=== PATIENT | male | born 1960 | race Caucasian/White ===

== ENCOUNTER 2016-07-17 02:12 | Emergency (ER) | payer OTHER ==
[~2016-07-17] VITALS: Wt 129.0 kg
[~2016-07-17 02:12] MED LIST: ACET500C5 PO; ALBU8.5H3 INH; AMIT25TA9 PO; ATEN50TA PO; ATOR20TA38 PO; BISA-57 PO; CLOP75TA27 PO; GABA300C16 PO; GLIM1TAB PO; IBUP-1542 PO; LANT3I SC; LISI20TA11 PO; METF-388 PO; NAPR-685 PO; OMEP20CA16 PO; POLY17PO6 PO; PRED20TA PO; SITA100T8 PO; SODI15OR8 PO; TRAM-40 PO; ULT50 PO; ZOLP10TA5 PO
[2016-07-17] MEDS ORDERED: traMADol 50 MG TAB PO ONE (04:00)
[2016-07-17] MEDS ORDERED: ULT50 PO (05:14)
--- NOTE | 2016-07-17 05:22 | ERD ---
ER Documentation Chief Complaint Date/Time DATE: 07/17/16 TIME: 05:15 Chief Complaint left leg pain HPI This is a 56-year-old male who is well-known to the emergency department here. The patient comes in always complaining of some leg pain. Patient does admit that he is very lonely and bored as family does not care much about him. Her social service worker team have investigated the situation several times with Adult Protective Services. The patient comes in complaining of the same typical complaint that his left lower mack hurts but there is no evidence of injury or infection. He says the pain is off and on for the past 2 days and is always the same pain he usually has. ROS All systems reviewed and are negative except as per history of present illness. Medications Home Meds Active Scripts Tramadol HCl (Tramadol HCl) 50 Mg Tablet, 50 MG PO Q6, #20 TAB Prov:YAIR TEJEDA DO 07/17/16 Acetaminophen* (Tylophen*) 500 Mg Capsule, 1 CAP PO Q6H Y for PAIN AND OR ELEVATED TEMP, #20 CAP Prov:NAIF BLAIR PA-C 07/01/16 Albuterol Sulfate* (Proair HFA*) 8.5 Gm Hfa.aer.ad, 2 PUFF INH Q4, #1 INHALER Prov:PARKER WEI PA-C 06/21/16 Ibuprofen* (Motrin*) 600 Mg Tab, 600 MG PO Q6H Y for PAIN AND OR ELEVATED TEMP, #15 TAB Prov:ABE MOORE MD 06/16/16 Sodium Polystyrene Sulfonate* (Kayexalate*) 15 Gm/60 Ml Susp, 30 GM PO ONCE, #2 ML Prov:YEMI HERNÁNDEZ DO 06/10/16 Sitagliptin* (Januvia*) 100 Mg Tab, 100 MG PO DAILY for 30 Days Prov:LISSY GONZALEZ 02/04/15 Reported Medications Insulin Glargine* (Lantus*) 100 Unit/Ml Soln, 20 UNIT SC DAILY, #1 VIAL 06/10/16 Tramadol Hcl* (Ultram*) 50 Mg Tablet, 50 MG PO TID Y for PAIN, TAB 03/30/16 Gabapentin* (Gabapentin*) 300 Mg Capsule, 300 MG PO TID, #90 CAP 03/16/16 Amitriptyline Hcl* (Amitriptyline Hcl*) 25 Mg Tablet, 25 MG PO QHS, #30 TAB 03/16/16 Omeprazole* (Omeprazole*) 20 Mg Capsule.dr, 20 MG PO DAILY, #30 CAP 12/22/15 Clopidogrel Bisulfate (Clopidogrel) 75 Mg Tablet, 75 MG PO DAILY, #30 TAB 12/22/15 Zolpidem Tartrate* (Zolpidem Tartrate*) 10 Mg Tablet, 10 MG PO QHS Y for INSOMNIA, #30 TAB 12/22/15 Glimepiride* (Amaryl*) 1 Mg Tablet, 1 MG PO WITH BREAKFAST, TAB 03/19/15 Metformin Hcl* (Metformin Hcl*) 1,000 Mg Tablet, 1000 MG PO BID WITH MEALS, TAB 03/19/15 Atorvastatin Calcium* (Atorvastatin Calcium*) 20 Mg Tablet, 20 MG PO HS, TAB 03/19/15 Lisinopril* (Lisinopril*) 20 Mg Tablet, 20 MG PO DAILY, TAB 09/29/14 Atenolol* (Atenolol*) 50 Mg Tablet, 50 MG PO DAILY, TAB 09/29/14 Discontinued Scripts Tramadol HCl (Tramadol HCl) 50 Mg Tablet, 50 MG PO Q4 Y for PAIN, #20 TAB Prov:PARKER WEI PA-C 06/21/16 Prednisone* (Prednisone*) 20 Mg Tab, 60 MG PO DAILY for 4 Days, TAB Prov:RAHEEM KENDALL MD 06/20/16 Albuterol Sulfate* (Proair HFA*) 8.5 Gm Hfa.aer.ad, 2 PUFF INH Q4H Y for WHEEZING AND SOB, #1 INHALER Prov:RAHEEM KENDALL MD 06/20/16 Tramadol HCl (Tramadol HCl) 50 Mg Tablet, 50 MG PO Q8H Y for PAIN, #120 TAB Prov:YAIR TEJEDA DO 06/18/16 Bisacodyl* (Dulcolax*) 5 Mg Tablet.dr, 10 MG PO DAILY Y for CONSTIPATION, #10 TAB Prov:YAIR TEJEDA DO 06/13/16 Albuterol Sulfate* (Proair HFA*) 8.5 Gm Hfa.aer.ad, 2 PUFF INH Q4, #1 INHALER Prov:YAIR TEJEDA DO 06/13/16 Prednisone* (Prednisone*) 20 Mg Tab, 60 MG PO DAILY for 5 Days, TAB Prov:YAIR TEJEDA DO 06/13/16 Albuterol Sulfate* (Proair HFA*) 8.5 Gm Hfa.aer.ad, 2 PUFF INH Q6H Y for WHEEZING AND SOB, #1 INHALER Prov:LLOYD AYALA 06/11/16 Prednisone* (Prednisone*) 20 Mg Tab, 60 MG PO DAILY for 5 Days, TAB Prov:LLOYD AYALA 06/11/16 Naproxen* (Naproxen*) 375 Mg Tablet, 375 MG PO BID Y for PAIN, #20 TAB Prov:YEMI HERNÁNDEZ DO 06/10/16 Polyethylene Glycol* (Miralax*) 17 Gm Powd.pack, 17 GM PO DAILY, #7 PACKET Prov:YEMI HERNÁNDEZ DO 06/10/16 Allergies Allergies: Coded Allergies: No Known Allergy (Unverified , 07/17/16) PMhx/Soc History of Surgery: No Anesthesia Reaction: No Hx Neurological Disorder: Yes (cva) Hx Respiratory Disorders: Yes (asthma) Hx Cardiac Disorders: Yes (htn) Hx Psychiatric Problems: No Hx Miscellaneous Medical Probl: No Hx Alcohol Use: Yes (occasionally) Hx Substance Use: No Hx Tobacco Use: Yes Smoking Status: Current every day smoker FmHx Family History: No coronary disease Physical Exam Vitals Vital Signs Date Time Temp Pulse Resp B/P Pulse Ox O2 Delivery O2 Flow Rate FiO2 07/17/16 02:22 97.3 80 18 116/58 91 Physical Exam Const: Well-developed, well-nourished Head: Atraumatic, normocephalic Eyes: Normal Conjunctiva, PERRLA, EOMI, normal sclera, no nystagmus ENT: Normal External Ears, Nose and Mouth, moist mucus membranes. Neck: Full range of motion. No meningismus, no lymphadenopathy. Resp: Clear to auscultation bilaterally, no wheezing, rhonchi, rales Cardio: Regular rate and rhythm, no murmurs, S1 S2 present Abd: Soft, non tender x 4, non distended. Normal bowel sounds, no guarding or rebound, no pulsitile abdominal masses or bruits Skin: No petechiae or rashes, no ecchymosis , no maculopapular rash Back: No midline or flank tenderness Ext: No cyanosis, or edema, FROM x 4, normal inspection, neurovascularly intact x 4, subjective tenderness to the left mid tib-fib no signs of infection or trauma swelling or bruising Neur: Awake and alert, STR 5/5 x 4, sensation intact x 4, no focal findings, cerebellum intact Psych: Normal Mood and Affect Results 24 hrs Laboratory Tests Test 07/17/16 03:21 Bedside Glucose 182mg/dL Current Medications Medications (Trade) Dose Ordered Sig/Stephanie Route PRN Reason Start Time Stop Time Status Last Admin Dose Admin Tramadol HCl (Ultram) 50 mg ONCE ONCE PO 07/17/16 04:00 07/17/16 04:01 DC 07/17/16 03:54 Procedures/MDM Patient was given a snack and some tramadol for pain he has been sleeping in the ER. Departure Diagnosis: Primary Impression: Pain of left leg Condition: Stable Patient Instructions: Chronic Pain Referrals: DOCTOR,NOT ON STAFF (PCP) YAIR TEJEDA DO Jul 17, 2016 05:22
[2016-07-17 05:47] VITALS: BP 122/68; PULSE 83; RESP 18; TEMP 97.2
== END 2016-07-17 05:49 | disposition home or self-care (01) ==
LOC: E/R 02:12
DX: M79.605 Pain in left leg (principal); J45.909 Unspecified asthma, uncomplicated; I10 Essential (primary) hypertension; F17.210 Nicotine dependence, cigarettes, uncomplicated; Z79.84 Long term (current) use of oral hypoglycemic drugs; Z79.4 Long term (current) use of insulin
CPT/HCPCS: 82962; Z7502; Z7610; 99283

== ENCOUNTER 2016-07-26 12:45 | Inpatient (IN) | payer OTHER ==
[~2016-07-26] VITALS: Ht 172.7 cm; Wt 127.7 kg
[~2016-07-26 12:45] MED LIST changes: -BISA-57 PO; -NAPR-685 PO; -POLY17PO6 PO; -PRED20TA PO
--- NOTE | 2016-07-26 12:56 | ERA ---
ER Documentation Chief Complaint Date/Time DATE: 07/26/16 TIME: 12:55 Chief Complaint The patient is 56-year-old male, presenting to the ER because of acute respiratory distress. He was at the clinic for shortness of breath. When the EMS arrived, he was in agonal breathing with ashen color. He was put on assisted ventilation and transported to the ER immediately. Upon arrival to the ER, he was in acute respiratory distress, unable to answer any question. 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 Past medical history: Diabetes mellitus, history of CVA with mild left hemiparesis, COPD, dyslipidemia, GERD, glaucoma, chronic back pain Past surgical history: Inguinal herniorrhaphy ROS All systems reviewed and are negative except as per history of present illness. Medications Home Meds Active Scripts Tramadol HCl (Tramadol HCl) 50 Mg Tablet, 50 MG PO Q6, #20 TAB Prov:YAIR TEJEDA DO 07/17/16 Acetaminophen* (Tylophen*) 500 Mg Capsule, 1 CAP PO Q6H Y for PAIN AND OR ELEVATED TEMP, #20 CAP Prov:NAIF BLAIR PA-C 07/01/16 Albuterol Sulfate* (Proair HFA*) 8.5 Gm Hfa.aer.ad, 2 PUFF INH Q4, #1 INHALER Prov:PARKER WEI PA-C 06/21/16 Ibuprofen* (Motrin*) 600 Mg Tab, 600 MG PO Q6H Y for PAIN AND OR ELEVATED TEMP, #15 TAB Prov:ABE MOORE MD 06/16/16 Sodium Polystyrene Sulfonate* (Kayexalate*) 15 Gm/60 Ml Susp, 30 GM PO ONCE, #2 ML Prov:YEMI HERNÁNDEZ DO 06/10/16 Sitagliptin* (Januvia*) 100 Mg Tab, 100 MG PO DAILY for 30 Days Prov:LISSY GONZALEZ 02/04/15 Reported Medications Insulin Glargine* (Lantus*) 100 Unit/Ml Soln, 20 UNIT SC DAILY, #1 VIAL 06/10/16 Tramadol Hcl* (Ultram*) 50 Mg Tablet, 50 MG PO TID Y for PAIN, TAB 03/30/16 Gabapentin* (Gabapentin*) 300 Mg Capsule, 300 MG PO TID, #90 CAP 03/16/16 Amitriptyline Hcl* (Amitriptyline Hcl*) 25 Mg Tablet, 25 MG PO QHS, #30 TAB 03/16/16 Omeprazole* (Omeprazole*) 20 Mg Capsule.dr, 20 MG PO DAILY, #30 CAP 12/22/15 Clopidogrel Bisulfate (Clopidogrel) 75 Mg Tablet, 75 MG PO DAILY, #30 TAB 12/22/15 Zolpidem Tartrate* (Zolpidem Tartrate*) 10 Mg Tablet, 10 MG PO QHS Y for INSOMNIA, #30 TAB 12/22/15 Glimepiride* (Amaryl*) 1 Mg Tablet, 1 MG PO WITH BREAKFAST, TAB 03/19/15 Metformin Hcl* (Metformin Hcl*) 1,000 Mg Tablet, 1000 MG PO BID WITH MEALS, TAB 03/19/15 Atorvastatin Calcium* (Atorvastatin Calcium*) 20 Mg Tablet, 20 MG PO HS, TAB 03/19/15 Lisinopril* (Lisinopril*) 20 Mg Tablet, 20 MG PO DAILY, TAB 09/29/14 Atenolol* (Atenolol*) 50 Mg Tablet, 50 MG PO DAILY, TAB 09/29/14 Allergies Allergies: Coded Allergies: No Known Allergy (Unverified , 07/17/16) PMhx/Soc History of Surgery: No Anesthesia Reaction: No Hx Neurological Disorder: Yes (cva) Hx Respiratory Disorders: Yes (asthma) Hx Cardiac Disorders: Yes (htn) Hx Psychiatric Problems: No Hx Miscellaneous Medical Probl: No Hx Alcohol Use: Yes (occasionally) Hx Substance Use: No Hx Tobacco Use: Yes Physical Exam Vitals Vital Signs Date Time Temp Pulse Resp B/P Pulse Ox O2 Delivery O2 Flow Rate FiO2 07/26/16 14:06 65 18 72/50 100 Mechanical Ventilator 07/26/16 13:49 97.9 69 30 134/79 89 07/26/16 13:45 65 20 101/57 100 07/26/16 13:15 97.9 73 28 157/93 92 Room Air Physical Exam Const: Acute severe respiratory distress. Head: Atraumatic. Eyes: Normal Conjunctiva. ENT: Normal External Ears, Nose and Mouth. Neck: Full range of motion. No meningismus. Resp: Scattered rhonchi, tachypneic Cardio: Regular rate and rhythm, Abd: Soft, non distended, normal bowel sounds, non tender. Skin: No petechiae or rashes. Back: No midline or flank tenderness. Ext: No cyanosis, or edema. Neur: Unable to perform due to his condition Psych: Unable to perform due to his condition Result Diagram: 07/26/16 1300 07/26/16 1300 Results 24 hrs Laboratory Tests Test 07/26/16 12:56 07/26/16 13:00 07/26/16 13:30 Bedside Glucose 198mg/dL Activated Partial Thromboplast Time 31.4Sec Alanine Aminotransferase (ALT/SGPT) 28IU/L Albumin 4.6g/dl Albumin/Globulin Ratio 1.31 Alkaline Phosphatase 84IU/L Anion Gap 22 Aspartate Amino Transf (AST/SGOT) 32IU/L Basophils # 0.110^3/ul Basophils % 0.5% Blood Morphology Comment Blood Urea Nitrogen 21mg/dl Calcium Level 8.8mg/dl Carbon Dioxide Level 29mmol/L Chloride Level 97mmol/L Creatinine 0.83mg/dl Direct Bilirubin 0.00mg/dl Eosinophils # 0.210^3/ul Eosinophils % 1.2% Globulin 3.50g/dl Glucose Level 185mg/dl Hematocrit 41.7% Hemoglobin 14.1g/dl INR International Normalized Ratio 0.90 Indirect Bilirubin 0.4mg/dl Lactic Acid Level 6.0mmol/L Lymphocytes # 5.810^3/ul Lymphocytes % 36.2% Mean Corpuscular Hemoglobin 29.2pg Mean Corpuscular Hemoglobin Concent 33.8g/dl Mean Corpuscular Volume 86.5fl Mean Platelet Volume 8.7fl Monocytes # 1.610^3/ul Monocytes % 10.1% Neutrophils # 8.310^3/ul Neutrophils % 52.0% Nucleated Red Blood Cells # 0.010^3/ul Nucleated Red Blood Cells % 0.0/100WBC Platelet Count 90062^3/UL Potassium Level 5.1mmol/L Prothrombin Time 12.1Sec Prothrombin Time Ratio 0.9 Red Blood Count 4.8210^6/ul Red Cell Distribution Width 16.3% Sodium Level 143mmol/L Total Bilirubin 0.4mg/dl Total Protein 8.1g/dl Troponin I 0.011ng/ml White Blood Count 15.910^3/ul Arterial Blood HCO3 23.9mmol/L Arterial Blood Base Excess -5.4mmol/L Arterial Blood Oxygen Saturation 98.9mmHG Trell Test ACCEPTAB Arterial Blood Gas Puncture Site Right Radial Arterial Blood Carboxyhemoglobin 5.9% Arterial Blood Date Drawn 07/26/2016 1:21:38 PM Arterial Blood Methemoglobin 0.2% Arterial Blood pCO2 (Temp correct) 64.9mmhg Arterial Blood pH (Temp corrected) 7.184 Arterial Blood pO2 (Temp corrected) 507.0mmHG Blood Gas A-a O2 Differential 141.1mmHg Blood Gas Actual Respiration Rate 20 Blood Gas Critical Value Read Back DR MOORE Blood Gas Low PEEP Setting 5.0cmH2O Blood Gas Modality VENT - AC Blood Gas Notified Time 07/26/2016 1:35:30 PM Blood Gas Notified Whom JLD Blood Gas Respiration Rate 20.0 Blood Gas Specimen Source Blood arterial Blood Gas Temperature 37.0C Blood Gas Tidal Volume 500.0mL FiO2 100.0% Oxyhemoglobin Percent 92.9% Total Hemoglobin 13.1g/dl Current Medications Medications (Trade) Dose Ordered Sig/Stephanie Route PRN Reason Start Time Stop Time Status Last Admin Dose Admin Propofol 100 ml @ ud STK-MED ONCE .ROUTE 07/26/16 13:35 07/26/16 13:36 DC Propofol 100 ml @ 0 mls/hr TITRATE ONCE IV 07/26/16 14:00 07/26/16 14:01 DC 07/26/16 13:49 Piperacillin Sod/ Tazobactam Sod (Zosyn 3.375gm/ 100 ml (Pmx)) 100 ml @ 200 mls/hr ONCE ONCE IVPB 07/26/16 14:30 07/26/16 14:59 07/26/16 14:25 Vancomycin HCl 1 ea 1 ea X 1 ONLY IN E.R. STAT XX 07/26/16 14:02 07/26/16 14:04 DC Vancomycin HCl/ Sodium Chloride (Vancocin/NS) 500 ml @ 125 mls/hr ONCE ONCE IVPB 07/26/16 15:00 07/26/16 18:59 Vecuronium [place] 10 mg 10 mg ONCE ONCE IV 07/26/16 14:30 07/26/16 14:31 DC Sodium Chloride (NS) 500 ml @ 500 mls/hr Q1H ONCE IV 07/26/16 14:30 07/26/16 15:29 Methylprednisolone Sodium Succinate 125 mg 125 mg ONCE ONCE IV 07/26/16 14:30 07/26/16 14:31 DC Sodium Chloride 1,000 ml @ 1,000 mls/hr Q1H ONCE IV 07/26/16 15:00 07/26/16 15:59 Sodium Chloride (NS) 3,570 ml @ 3,570 mls/hr BOLUS X1 ONCE IV 07/26/16 15:00 07/26/16 15:59 Procedures/MDM EKG: Read by emergency physician Rate/Rhythm: Normal Sinus Rhythm 99 beats per min QRS, ST, T-waves: No ST elevation, no T wave inversion, right bundle branch block Impression: Abnormal EKG [place] [id number] Radiology Main Line: [phone] DIAGNOSTIC IMAGING REPORT Patient: DIANN FLOWERS : 1960 Age: 56 Sex: M MR #: [id number] DOS: 07/26/16 1256 Ordering MD: ABE MOORE MD Location: E/R Room/Bed: PROCEDURE: XR Chest. CLINICAL INDICATION: Status post intubation TECHNIQUE: Single portable view of the chest was obtained COMPARISON: 06/26/16 FINDINGS: There is a new endotracheal tube 5.5 cm above the shon. There is mild cardiomegaly. There is no focal infiltrate. There is no pleural effusion or pneumothorax. RPTAT: AA IMPRESSION: New endotracheal tube in appropriate position. .Colin Escalera MD, MD Date Time Electronically viewed and signed by .Colin Escalera MD, MD on 07/26/2016 13: 33 .S/ CC: ABE MOORE MD MEDICAL MAKING DECISION: The patient is a 56-year-old male, presenting with acute septic shock, acute hypercapnic hypoxemic respiratory failure, acute COPD exacerbation. He was intubated immediately. Accu-Chek was 198. He was treated with a nasogastric tube, Scherer catheter, propofol drip, soft restraints , Zosyn IV, vancomycin IV, 500 mL normal saline 2 and vecuronium 10 mg IV. The differential diagnoses considered include but are not limited to asthma, COPD, pneumonia, pulmonary embolus, pleural effusion, congestive heart failure. Admit MDM: Patient's infectious symptoms have not stabilized and the patient is at risk of rapid decompensation. The patient will be admitted for careful hydration, antibiotic therapy, and infectious source control. Severe Sepsis criteria: Infectious source: Unknown End organ damage indicated by: Lactate > 2.0 mmol/L Hypotension (SBP < 90 or >40 mmHG drop or MAP < 65) Sepsis Management: Time of recognition of severe sepsis/septic shock:Upon arrival Within 3 hours of recognition: Blood cultures x 2 before broad-spectrum antibiotics: Yes 30 ml/kg NS bolus completed Initial lactate 6 Repeat lactate pending Critical Care: Critical care time 35 minutes excluding billable procedure Emergent fluid management while maintaining close respiratory support. Provision of immediate and broad-spectrum antibiotic therapy. Simultaneous assessment for possible sources in order to direct targeted therapy. Consideration for invasive and chemical support to prevent cardiopulmonary collapse. Septic Shock Assessment: Any lactic acid > 4.0 yes Persistent hypotension (SBP < 90 or 40 mmHg drop, MAP < 65) despite 30 mL/kg IV fluid bolusno Volume Re-assessment for Septic Shock (post 30 ml/kg bolus): Per nursing note Heart regular rate & rhythm Lungs no crackles Skin Warm & dry & pink Cap Refill less than 2 seconds Peripheral pulses radially present Persistent Hypotension Treatment: Comfort care no Central line not indicated Vasopressor started not indicated I considered further perfusion assessment with CVP measurement, SCVO2, bedside ultrasound volume assessment, passive leg raise, trial of further fluid bolus. And proceeded withIV fluid Endotracheal Intubation by me: Pre assessment performed. See preceding note for details. Pre-oxygenation performed with 100% oxygen RSI: Performed w/o complication or hypoxic events. Medications as ordered. Blade: [place] scope ET Tube: 7.5 cm Depth: 23 cm at the lip Intubation confirmed by colorimetric CO2, equal breath sounds, quiet over the stomach. Departure Diagnosis: Primary Impression: Acute respiratory failure with hypoxia and hypercapnia Additional Impressions: Acute exacerbation of chronic obstructive pulmonary disease (COPD) Septic shock Condition: Critical Comments I discussed the findings with the patient. I discussed the patient with his physician Dr. Bernstein who was made aware of the lab, the treatment, the patient condition. The patient is admitted to ICU 2:40 pm ABE MOORE MD Jul 26, 2016 12:56
[2016-07-26 13:29] LABS: BASOPHIL # 0.1 10^3/ul (0.0-0.1); BASOPHILS % 0.5 % (0.0-2.0); EOSINOPHILS # 0.2 10^3/ul (0.0-0.5); EOSINOPHILS % 1.2 % (0.0-7.0); HEMATOCRIT 41.7 % (42.0-52.0); HEMOGLOBIN 14.1 g/dl (14.0-18.0); LYMPHOCYTES # 5.8 10^3/ul (0.8-2.9); LYMPHOCYTES % 36.2 % (15.0-51.0); MEAN CORPUSCULAR HEMOGLOBIN 29.2 pg (29.0-33.0); MEAN CORPUSCULAR HGB CONC 33.8 g/dl (32.0-37.0); MEAN CORPUSCULAR VOLUME 86.5 fl (82.0-101.0); MEAN PLATELET VOLUME 8.7 fl (7.4-10.4); MONOCYTE # 1.6 10^3/ul (0.3-0.9); MONOCYTES % 10.1 % (0.0-11.0); NEUTROPHIL # 8.3 10^3/ul (1.6-7.5); PLATELET COUNT 317 10^3/UL (140-440); RED BLOOD COUNT 4.82 10^6/ul (4.70-6.10); RED CELL DISTRIBUTION WIDTH 16.3 % (11.5-14.5); UNCORRECTED WBC 15.9 10^3/ul (4.8-10.8); WHITE BLOOD COUNT 15.9 10^3/ul (4.8-10.8)
[2016-07-26 13:30] LABS: CONDITION 1; LH ANALYZER COMMENTS 1
--- NOTE | 2016-07-26 13:33 | RADRPT ---
PROCEDURE: XR Chest. CLINICAL INDICATION: Status post intubation TECHNIQUE: Single portable view of the chest was obtained COMPARISON: 06/26/16 FINDINGS: There is a new endotracheal tube 5.5 cm above the shon. There is mild cardiomegaly. There is no focal infiltrate. There is no pleural effusion or pneumoth orax. RPTAT: AA IMPRESSION: New endotracheal tube in appropriate position. .Colin Escalera MD, MD Date Time Electronically viewed and signed by .Colin Escalera MD, MD on 07/26/2016 13:33 .S/
[2016-07-26 13:35] LABS: AADO2 Arterial 141.1 mmHg (7.0-24.0); Allen Test ACCEPTAB; Arterial Base Excess -5.4 mmol/L (-3.0-3); Arterial COHb 5.9 % (0.0-3.0); Arterial Fraction of Oxyhgb 92.9 % (93.0-99.0); Arterial HCO3 23.9 mmol/L (22.0-26.0); Arterial MetHb 0.2 % (0.0-1.5); Arterial Total Hemglobin 13.1 g/dl (12.0-18.0); MODE VENT - AC
[2016-07-26] MEDS ORDERED: PROPOFOL 100 ML ONE (13:35)
[2016-07-26 13:37] LABS: ALBUMIN 4.6 g/dl (3.3-4.9)
[2016-07-26 13:38] LABS: INR 0.9; POTASSIUM 5.1 mmol/L (3.5-5.1); PROTIME 12.1 Sec (12.2-14.2); PT RATIO 0.9
[2016-07-26 13:39] LABS: PARTIAL THROMBOPLASTIN TIME 31.4 Sec (25.0-35.0)
[2016-07-26 13:40] LABS: BILIRUBIN,INDIRECT 0.4 mg/dl (0-1.1); BILIRUBIN,TOTAL 0.4 mg/dl (0.2-1.3); CREATININE 0.83 mg/dl (0.61-1.24)
[2016-07-26 13:41] LABS: ALBUMIN/GLOBULIN RATIO 1.31; CALCIUM 8.8 mg/dl (8.4-10.2); TOTAL PROTEIN 8.1 g/dl (6.1-8.1)
[2016-07-26 13:53] LABS: TROPONIN-I 0.011 ng/ml (0.00-0.12)
[2016-07-26] MEDS ORDERED: PROPOFOL 100 ML IV ONE (14:00)
[2016-07-26] MEDS ORDERED: VANCOMYCIN IV PER PHARMACY XX STA (14:02)
[2016-07-26] MEDS ORDERED: SOD CHLORIDE 0.9% 500 ML IV ONE (14:30)
[2016-07-26] MEDS ORDERED: METHYLPREDNISOLONE 125 MG INJ IV ONE (14:30)
[2016-07-26] MEDS ORDERED: VECURONIUM 10 MG VIAL IV ONE ×2 (14:30→18:30)
[2016-07-26] MEDS ORDERED: PIPER-TAZO 3.375 GM IV (PMX) 100 ML IVPB ONE (14:30)
[2016-07-26 14:53] LABS: AADO2 Arterial 142.2 mmHg (7.0-24.0); Allen Test ACCEPTAB; Arterial COHb 3.4 % (0.0-3.0); Arterial Fraction of Oxyhgb 94.7 % (93.0-99.0); Arterial HCO3 28.3 mmol/L (22.0-26.0); Arterial MetHb 0.1 % (0.0-1.5); Arterial Total Hemglobin 11.9 g/dl (12.0-18.0); MODE VENT - AC
[2016-07-26] MEDS ORDERED: SOD CHLORIDE 0.9% IV ONE (15:00)
[2016-07-26] MEDS ORDERED: SOD CHLORIDE 0.9% 1,000 ML IV ONE (15:00)
[2016-07-26] MEDS ORDERED: VANCOMYCIN 2 GM in SOD CHLORIDE 0.9% 500 ML IVPB ONE (15:00)
[2016-07-26 15:11] LABS: ADD UMIC YES; URINE BILIRUBIN (Dip) NEGATIVE (NEGATIVE); URINE BLOOD (Dip) TRACE (NEGATIVE); URINE COLOR LT. YELLOW (YELLOW); URINE GLUCOSE (Dip) NEGATIVE (NEGATIVE); URINE KETONES (Dip) NEGATIVE (NEGATIVE); URINE LEUKOCYTE ESTERASE (Dip) NEGATIVE (NEGATIVE); URINE NITRITE (Dip) NEGATIVE (NEGATIVE); URINE TOTAL PROTEIN (Dip) 2+ (NEGATIVE); URINE UROBILINOGEN (Dip) 0.2 E.U./dL (0.1-1.0)
[2016-07-26] MEDS ORDERED: LEVALBUTEROL (NEB) 1.25 MG/0.5 ML AMP HHN ONE (15:30)
[2016-07-26] MEDS ORDERED: IPRATROPIUM (NEB) 0.5 MG/2.5 ML AMP HHN ONE (15:30)
[2016-07-26] MEDS ORDERED: LEVALBUTEROL (NEB) 1.25 MG/0.5 ML AMP ONE (15:32)
[2016-07-26] MEDS ORDERED: IPRATROPIUM (NEB) 0.5 MG/2.5 ML AMP ONE (15:32)
--- NOTE | 2016-07-26 15:51 | RADRPT ---
PROCEDURE: US DVT. CLINICAL INDICATION: Bilateral lower extremity pain and swelling. TECHNIQUE: Multiple longitudinal and transverse images of the bilateral lower extremity veins were obtained with martinez scale and color Doppler imaging. 2D grayscale measurements with compression, co phuong Doppler flow, and augmentation was performed. The calf veins were interrogated as well. COMPARISON: 05/27/2015. FINDINGS: The bilateral common femoral, superficial femoral and popliteal veins are normally compressible thro ughout. Color flow demonstrates normal filling of the vessel. Normal waveforms are visualized and there is normal response to augmentation. The calf veins are visualized and are equally unremarkabl e. IMPRESSION: 1. No evidence of a deep vein thrombosis involving either lower extremity. RPTAT: AA .Darrick Jack MD, Date Time Electronically viewed and signed by .Darrick Jack MD, MD on 07/26/2016 15:51 .N/
[2016-07-26] MEDS ORDERED: GLUCOSE GEL 15 GRAM TUBE BUCCAL PRN (16:00)
[2016-07-26] MEDS ORDERED: GLUCAGON 1 MG INJ IM PRN (16:00)
[2016-07-26] MEDS ORDERED: DEXTROSE 50% 50 ML SYRINGE IV PRN ×2 (16:00)
[2016-07-26] MEDS ORDERED: NITROGLYCERIN (SL) 0.4 MG TAB SL PRN (16:00)
[2016-07-26] MEDS ORDERED: ACETAMINOPHEN 650 MG SUPP PR PRN (16:00)
[2016-07-26] MEDS ORDERED: MAGNESIUM HYDROXIDE 30ML CUP PO PRN (16:00)
[2016-07-26] MEDS ORDERED: GLUCOSE GEL 15 GRAM TUBE PO PRN ×2 (16:00)
[2016-07-26] MEDS ORDERED: BISACODYL 10 MG SUPP PR PRN (16:00)
[2016-07-26] MEDS ORDERED: ACETAMINOPHEN 650MG/20.3ML CUP PO PRN (16:00)
[2016-07-26] MEDS ORDERED: ONDANSETRON 4 MG INJ IV PRN (16:00)
[2016-07-26] MEDS ORDERED: DOCUSATE SODIUM 100 MG CAP PO PRN (16:00)
[2016-07-26] MEDS ORDERED: IPRATROPIUM (HFA) 12.9 GM INHALER INH PRN (16:00)
[2016-07-26] MEDS ORDERED: ALBUTEROL HFA 8 GM INHALER INH PRN (16:00)
[2016-07-26 16:02] LABS: BACTERIA,URINE RARE; SQUAMOUS EPITHELIAL CELL,UR RARE
[2016-07-26] MEDS: INSULIN ASPART [NOVOLOG] 3 ML PEN SC SCH (17:00)
[2016-07-26] MEDS: PROPOFOL 100 ML IV SCH (17:12)
--- NOTE | 2016-07-26 17:31 | HP ---
DATE OF ADMISSION: 07/26/2016 CHIEF COMPLAINT ON ADMISSION: Severe respiratory distress, shortness of breath. HISTORY OF PRESENT ILLNESS: This is a 56-year-old male with a past medical history significant for hypertension, hyperlipidemia, diabetes mellitus, COPD, coronary artery disease and chronic left lowe r extremity pain related to radiculopathy who presented to the emergency department today from his [facility] physician's office with severe respiratory distress. The patient apparently went to his primary care office this morning due to shortness of breath, and while he was being evaluated and b efore he left there, he was found to be in severe respiratory distress and actually had an episode o f syncope. He was transferred to the emergency department. In the emergency department, he was sev erely hypoxemic and agitated with O2 sats in the 70s. His ABG did show some CO2 retention, pH of 7. 1. Therefore, the patient was intubated emergently. By the time I saw him, he has been already int ubated and on sedation. There is no family member around to provide any history. All this history is obtained from the ER physician, Dr. Solis. The patient is currently stable after intubation. His repeat ABG is much better. He seems to be primarily retainer of CO2. His vital signs are stable. He is on sedation. His laboratory data are fairly stable except for a white blood cell count of 15 ,000. There is some concern for aspiration based on the discussion with the ER physician. Therefor e, the patient has been given a dose of Zosyn and also vancomycin. He did receive steroids, nebuliz er treatment and now on mechanical ventilation. He is being admitted to the intensive care unit. ALLERGIES: NO KNOWN ALLERGIES. PAST MEDICAL HISTORY: 1. Coronary artery disease, status post stenting and old myocardial infarction. 2. COPD with chronic hypoxemia. 3. Diabetes mellitus. 4. Diabetic neuropathy. 5. Hyperlipidemia. 6. Glaucoma. 7. Hypertension. 8. Chronic cerebellar infarcts bilaterally. 9. 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 10. Chronic left lower extremity pain secondary to radiculopathy and peripheral neuropathy. 11. Likely obstructive sleep apnea. 12. Morbid obesity. PAST SURGICAL HISTORY: 1. Status post angiogram in the past. 2. Status post hernia repair. Of note, this surgical history is based on previous records. FAMILY HISTORY: Unknown. SOCIAL HISTORY: The patient apparently lives alone based on previous history. There is a son, han wren, listed. It is unclear if he is smoking or is a former smoker. No reported alcohol use. This is per record again. REVIEW OF SYSTEMS: Unable to obtain from patient currently. OUTPATIENT MEDICATIONS: 1. ProAir HFA 2 puffs inhaled q.4 hours. 2. Plavix 75 mg p.o. daily. 3. Atenolol 50 mg p.o. daily. 4. Atorvastatin 20 mg p.o. daily. 5. Lisinopril 20 mg p.o. at bedtime. 6. Tylenol 500 one tablet p.o. q.6 hours p.r.n. pain. 7. Amitriptyline 25 mg p.o. at bedtime. 8. Gabapentin 300 mg p.o. t.i.d. 9. Motrin 600 mg p.o. q.6 hours p.r.n. 10. Tramadol 50 mg p.o. q.6 hours versus q.8 hours as needed. 11. Ambien 10 mg p.o. at bedtime. 12. Kayexalate 30 grams p.o. once. 13. Glimepiride 1 tablet p.o. daily. 14. Lantus 20 units subcutaneously daily. 15. Metformin 1000 mg p.o. b.i.d. 16. Januvia 100 mg p.o. daily. PHYSICAL EXAMINATION: VITAL SIGNS: Temperature is 97.9; heart rate of 65, sinus rhythm; respiratory rate 18; blood pressu re 157/93. The patient is 100% mechanical ventilation with FIO2 of 50%, respiratory rate 26, AC mod e, tidal volume 500, PEEP of 5. GENERAL: He is sedated, intubated. Currently he is comfortable. Vital signs are stable. HEENT: Pupils are equally round and reactive to light. Extraocular muscles are intact. Anicteric sclerae. NECK: No JVD, no thyromegaly noted. However, the patient does have a thick neck and likely obstruc tive sleep apnea. HEART: Regular rate and rhythm. No murmur, rubs or gallops. LUNGS: Clear to auscultation bilaterally actually with good air movement while on the vent. ABDOMEN: Obese. Bowel sounds are present. Soft. EXTREMITIES: No edema, clubbing or cyanosis. NEUROLOGIC: The patient is currently sedated and intubated. LABORATORY DATA: White blood cell count is 15.9, hemoglobin of 14.1, hematocrit 41.7, platelet coun t of 317. Chemistry with a sodium of 143, potassium 5.1, chloride 97, bicarbonate 29, BUN 21, creat inine 0.83, glucose of 185, lactic acid 6.0, calcium 8.8, total bilirubin 0.4, AST 32, ALT 28, alkal ine phosphatase of 84. Troponin 0.011. Total protein 8.1. INR 0.90, PT 12.1, PTT 31.4. Urinalysi s is negative. Latest ABG post intubation with a pH of 7.3 now, up from 7.18; pCO2 of 57, down from 64.9; pO2 of 149. This is on FIO2 of 50%. EKG shows normal sinus rhythm. No acute ST or T-wave abnormalities. RADIOLOGICAL DATA: 1. Chest x-ray did show ET tube in place. No focal infiltrate. No pleural effusion, no pneumothor ax. The patient is noted to have mild cardiomegaly. 2. Dopplers of the lower extremities show no signs of DVT. ASSESSMENT AND PLAN: This is a 56-year-old male with: 1. Acute respiratory failure, seems to be hypercapnic and also hypoxemic with known chronic obstruc tive pulmonary disease, possible obstructive sleep apnea and possibly underlying bronchitis. It is unclear as the patient was actually going to his PCP for shortness of breath. He will be maintained on Zosyn for possible aspiration pneumonia. Monitor laboratory data. Dr. Palomares from Pulmonary as been consulted for vent management. The patient will be treated for COPD exacerbation. He alrea dy received Solu-Medrol 125 mg IV x1 in the ER. Will continue at 60 mg IV q.6 along with MDI treatm ent with albuterol and ipratropium while the patient is on the vent. Dopplers of the lower extremit ies are negative. If needed, will have a CT angiogram also done. Further recommendation per Belen dunne. 2. Coronary artery disease, status post stent placement in the past. Continue outpatient regimen i ncluding Plavix. He will be ruled out for acute coronary syndrome. He already had an echocardiogra m, latest one done in 02/2016. We will review, will only repeat it if needed. For now, there is no indication unless additional findings as the patient is being ruled out. 3. Diabetes mellitus. Sliding scale insulin has been ordered along with his Lantus. Will continue also Januvia, which would be substituted to Tradjenta here. Check hemoglobin A1c in a.m. and adjus t insulin regimen as needed. 4. Old cerebrovascular accident. Continue current treatment and then will monitor his mental statu s once he is more awake and extubated. 5. Hypertension. Continue outpatient medications. 6. Diabetic neuropathy. Continue outpatient medications. 7. Major depressive disorder and anxiety disorder. The patient is currently sedated. Will re-eval uate once extubated. 8. Possible aspiration pneumonia. I agree with Greteln. Will monitor the patient, recheck chest x-r ay in a.m. 9. Morbid obesity, possible obstructive sleep apnea. Will discuss with Pulmonary if the patient wi ll need CPAP after he is extubated. 10. Prophylaxis. Protonix for gastrointestinal prophylaxis, Lovenox for deep vein thrombosis proph ylaxis. DISPOSITION: The patient is admitted to the intensive care unit intubated, requiring mechanical martin tilation. Dictated By: MANUEL CABRERA/DARRELL Conf#: [id number] DID#: [id number]
[2016-07-26] MEDS: ALBUTEROL HFA 8 GM INHALER INH SCH ×2 (18:25→22:27)
[2016-07-26] MEDS: IPRATROPIUM (HFA) 12.9 GM INHALER INH SCH ×2 (18:25→22:27)
[2016-07-26] MEDS: METHYLPREDNISOLONE 125 MG INJ IV SCH (19:31)
[2016-07-26] MEDS: D5W IV SCH (20:01)
[2016-07-26] MEDS: MIDAZOLAM IV SCH (20:01)
[2016-07-26 20:26] LABS: TROPONIN-I 0.012 ng/ml (0.00-0.12)
[2016-07-26 20:28] LABS: CK-MB 0.28 ng/ml (0.0-2.4)
[2016-07-26 20:42] LABS: AADO2 Arterial 141.7 mmHg (7.0-24.0); Allen Test ACCEPTAB; Arterial Base Excess 0.1 mmol/L (-3.0-3); Arterial COHb 0.9 % (0.0-3.0); Arterial Fraction of Oxyhgb 94.2 % (93.0-99.0); Arterial HCO3 26.6 mmol/L (22.0-26.0); Arterial MetHb 0.2 % (0.0-1.5); Arterial Total Hemglobin 12.7 g/dl (12.0-18.0); Blood Gas Mean Airway Pressure 17; MODE VENT - AC
[2016-07-26] MEDS: ATORVASTATIN 20 MG TAB PO SCH (21:00)
[2016-07-26] MEDS: AMITRIPTYLINE 25 MG TAB PO SCH (21:00)
[2016-07-26] MEDS: PIPER-TAZO 3.375 GM IV (PMX) 100 ML IVPB SCH (21:51)
[2016-07-26] MEDS: SOD CHLORIDE 0.9% 1,000 ML IV SCH (21:53)
[2016-07-27 02:03] LABS: TROPONIN-I 0.011 ng/ml (0.00-0.12)
[2016-07-27 02:07] LABS: CK-MB 0.65 ng/ml (0.0-2.4)
[2016-07-27] MEDS: IPRATROPIUM (HFA) 12.9 GM INHALER INH SCH ×4 (02:18→20:54)
[2016-07-27] MEDS: ALBUTEROL HFA 8 GM INHALER INH SCH ×4 (02:18→20:54)
[2016-07-27] MEDS ORDERED: VANCOMYCIN 1.5 GM in SOD CHLORIDE 0.9% 250 ML IVPB SCH (04:00)
[2016-07-27 06:22] LABS: BASOPHILS % 0.2 % (0.0-2.0); HEMOGLOBIN 10.3 g/dl (14.0-18.0); LYMPHOCYTES # 0.8 10^3/ul (0.8-2.9); LYMPHOCYTES % 9.7 % (15.0-51.0); MEAN CORPUSCULAR HEMOGLOBIN 29.2 pg (29.0-33.0); MEAN CORPUSCULAR HGB CONC 34.3 g/dl (32.0-37.0); MEAN PLATELET VOLUME 9.1 fl (7.4-10.4); MONOCYTE # 0.2 10^3/ul (0.3-0.9); MONOCYTES % 2.3 % (0.0-11.0); NEUTROPHIL # 7.6 10^3/ul (1.6-7.5); NEUTROPHILS % 87.8 % (39.0-77.0); PLATELET COUNT 213 10^3/UL (140-440); RED BLOOD COUNT 3.53 10^6/ul (4.70-6.10); UNCORRECTED WBC 8.6 10^3/ul (4.8-10.8); WHITE BLOOD COUNT 8.6 10^3/ul (4.8-10.8)
[2016-07-27 06:28] LABS: CONDITION 1; LH ANALYZER COMMENTS 1
[2016-07-27 06:30] VITALS: TEMP 99.6
[2016-07-27 06:37] LABS: MAGNESIUM 1.7 mg/dl (1.7-2.5); PHOSPHORUS 2.6 mg/dl (2.5-4.9)
[2016-07-27 06:51] LABS: ALBUMIN 3.2 g/dl (3.3-4.9)
[2016-07-27 06:52] LABS: POTASSIUM 4.8 mmol/L (3.5-5.1)
[2016-07-27 06:54] LABS: BILIRUBIN,INDIRECT 0.1 mg/dl (0-1.1); BILIRUBIN,TOTAL 0.1 mg/dl (0.2-1.3); CREATININE 0.79 mg/dl (0.61-1.24)
[2016-07-27 06:55] LABS: ALBUMIN/GLOBULIN RATIO 1.06; CALCIUM 7.9 mg/dl (8.4-10.2); TOTAL PROTEIN 6.2 g/dl (6.1-8.1)
[2016-07-27] MEDS ORDERED: SUCCINYLCHOLINE CHLORIDE 100 MG/5 ML SYG IV ONE (07:00)
[2016-07-27 07:08] LABS: THYROID STIMULATING HORMONE 0.867 MIU/L (0.465-4.680)
[2016-07-27] MEDS: GABAPENTIN 300 MG CAP PO SCH (09:00)
[2016-07-27] MEDS: LINAGLIPTIN 5 MG TABLET PO SCH (09:00)
[2016-07-27] MEDS: LISINOPRIL 20 MG TAB PO SCH (09:00)
[2016-07-27] MEDS: CLOPIDOGREL 75 MG TAB PO SCH (09:00)
[2016-07-27] MEDS: ARTIFICIAL TEARS 15 ML OPH BOTH EYES SCH (09:00)
[2016-07-27] MEDS: ATENOLOL 50 MG TAB PO SCH (09:00)
--- NOTE | 2016-07-27 11:29 | PN ---
Date/Time of Note Date/Time of Note DATE: 07/27/16 TIME: 11:28 Assessment/Plan VTE Prophylaxis VTE Prophylaxis Intervention: LMWH Lines/Catheters Urinary Cath still in place: Yes Reason Cath still needed: other (indicate) (monitor UOP) Assessment/Plan Assessment/Plan 56-year-old male with: 1. Acute respiratory failure, on admission hypercapnic and hypoxemic with known chronic obstructive pulmonary disease, possible obstructive sleep apnea and possibly underlying bronchitis. On IV abx Vent support and Dr Palomares to see Continue MDIs and steroids Dopplers of the lower extremities are negative. Follow up further recommendation from Pulmonary. 2. Coronary artery disease, status post stent placement in the past. Continue outpatient regimen including Plavix. CE negative 2D echocardiogram, latest one done in 02/2016. 3. Diabetes mellitus. A1c 6.4 Continue Sliding scale insulin with his Lantus. Continue Tradjenta. 4. Old cerebrovascular accident. Continue current treatment and then will monitor his mental status once he is more awake and extubated. 5. Hypertension. Continue outpatient medications. 6. Diabetic neuropathy. Continue outpatient medications. 7. Major depressive disorder and anxiety disorder. The patient is currently sedated. Will re-evaluate once extubated. 8. Possible aspiration pneumonia. I agree with Zosyn. CXR stable 9. Morbid obesity, possible obstructive sleep apnea. Will discuss with Pulmonary if the patient will need CPAP after he is extubated. Prophylaxis. Protonix for gastrointestinal prophylaxis, Lovenox for deep vein thrombosis prophylaxis. DISPOSITION: continue intensive care unit care, patient intubated, requiring mechanical ventilation for now, Pulmonary to see Subjective 24 Hr Interval Summary Free Text/Dictation Patient intubated and remains stable on vent Pulmonary to see for further care On abx for ? aspiration Exam/Review of Systems Vital Signs Vitals Vital Signs Date Time Temp Pulse Resp B/P Pulse Ox O2 Delivery O2 Flow Rate FiO2 07/27/16 11:15 76 20 103/51 97 Mechanical Ventilator 07/27/16 07:15 40 07/27/16 06:30 99.6 Exam Constitutional: obese, other (intubated and on vent ) Respiratory: diminished breath sounds (bases bilaterally ), other (good air movement on Vent ) Cardiovascular: nl pulses, regular rate and rhythm Gastrointestinal: non-tender, soft Musculoskeletal: nl extremities to inspection Extremities: normal pulses, other (no edema, clubbing ot cyanosis ) Neurological: other (intubated and sedated ) Results Result Diagram: 07/27/16 0525 07/27/16 0525 Results 24 hrs Laboratory Tests Test 07/26/16 12:56 07/26/16 13:00 07/26/16 13:30 07/26/16 14:21 Bedside Glucose 198 Activated Partial Thromboplast Time 31.4 Alanine Aminotransferase (ALT/SGPT) 28 Albumin 4.6 Albumin/Globulin Ratio 1.31 Alkaline Phosphatase 84 Anion Gap 22 H Aspartate Amino Transf (AST/SGOT) 32 Basophils # 0.1 Basophils % 0.5 Blood Morphology Comment Blood Urea Nitrogen 21 H Calcium Level 8.8 Carbon Dioxide Level 29 Chloride Level 97 Creatinine 0.83 Direct Bilirubin 0.00 Eosinophils # 0.2 Eosinophils % 1.2 Globulin 3.50 H Glucose Level 185 Hematocrit 41.7 L Hemoglobin 14.1 INR International Normalized Ratio 0.90 Indirect Bilirubin 0.4 Lactic Acid Level 6.0 *H Lymphocytes # 5.8 H Lymphocytes % 36.2 Mean Corpuscular Hemoglobin 29.2 Mean Corpuscular Hemoglobin Concent 33.8 Mean Corpuscular Volume 86.5 Mean Platelet Volume 8.7 Monocytes # 1.6 H Monocytes % 10.1 Neutrophils # 8.3 H Neutrophils % 52.0 Nucleated Red Blood Cells # 0.0 Nucleated Red Blood Cells % 0.0 Platelet Count 317 # Potassium Level 5.1 Prothrombin Time 12.1 L Prothrombin Time Ratio 0.9 Red Blood Count 4.82 Red Cell Distribution Width 16.3 H Sodium Level 143 Total Bilirubin 0.4 Total Protein 8.1 Troponin I 0.011 White Blood Count 15.9 #H Arterial Blood HCO3 23.9 Arterial Blood Base Excess -5.4 L Arterial Blood Oxygen Saturation 98.9 H Trell Test ACCEPTAB Arterial Blood Gas Puncture Site Right Radial Arterial Blood Carboxyhemoglobin 5.9 H Arterial Blood Date Drawn 07/26/2016 1:21:38 PM Arterial Blood Methemoglobin 0.2 Arterial Blood pCO2 (Temp correct) 64.9 H Arterial Blood pH (Temp corrected) 7.184 *L Arterial Blood pO2 (Temp corrected) 507.0 H Blood Gas A-a O2 Differential 141.1 H Blood Gas Actual Respiration Rate 20 Blood Gas Critical Value Read Back DR MOORE Blood Gas Low PEEP Setting 5.0 Blood Gas Modality VENT - AC Blood Gas Notified Time 07/26/2016 1:35:30 PM Blood Gas Notified Whom JLD Blood Gas Respiration Rate 20.0 Blood Gas Specimen Source Blood arterial Blood Gas Temperature 37.0 Blood Gas Tidal Volume 500.0 FiO2 100.0 Oxyhemoglobin Percent 92.9 L Total Hemoglobin 13.1 Urine Bacteria RARE Urine Bilirubin NEGATIVE Urine Clarity CLEAR Urine Color LT. YELLOW Urine Glucose NEGATIVE Urine Hemoglobin TRACE Urine Ketones NEGATIVE Urine Leukocyte Esterase NEGATIVE Urine Microscopic RBC 2-5 Urine Microscopic WBC 0-2 Urine Nitrite NEGATIVE Urine Specific Samaria 1.025 Urine Squamous Epithelial Cells RARE Urine Total Protein 2+ H Urine Urobilinogen 0.2 E.U./dL Urine pH 6.5 Test 07/26/16 14:30 07/26/16 16:30 07/26/16 19:15 07/26/16 22:50 Arterial Blood HCO3 28.3 H Arterial Blood Base Excess 1.0 Arterial Blood Oxygen Saturation 98.1 H Trell Test ACCEPTAB Arterial Blood Gas Puncture Site Right Radial Arterial Blood Carboxyhemoglobin 3.4 H Arterial Blood Date Drawn 07/26/2016 2:30:52 PM Arterial Blood Methemoglobin 0.1 Arterial Blood pCO2 (Temp correct) 57.4 H Arterial Blood pH (Temp corrected) 7.310 L Arterial Blood pO2 (Temp corrected) 149.7 H Blood Gas A-a O2 Differential 142.2 H Blood Gas Actual Respiration Rate 26 Blood Gas Low PEEP Setting 5.0 Blood Gas Modality VENT - AC Blood Gas Notified Time 07/26/2016 2:53:40 PM Blood Gas Notified Whom JLD Blood Gas Respiration Rate 26.0 Blood Gas Specimen Source Blood arterial Blood Gas Temperature 37.0 Blood Gas Tidal Volume 500.0 FiO2 50.0 Oxyhemoglobin Percent 94.7 Total Hemoglobin 11.9 L Lactic Acid Level 0.8 1.0 Creatine Kinase 38 Creatine Kinase Index 0.7 Creatinine Kinase MB (Mass) 0.28 Troponin I 0.012 Bedside Glucose 191 Test 07/27/16 01:25 07/27/16 05:25 07/27/16 08:00 Creatine Kinase 53 Creatine Kinase Index 1.2 Creatinine Kinase MB (Mass) 0.65 Troponin I 0.011 Alanine Aminotransferase (ALT/SGPT) 32 Albumin 3.2 #L Albumin/Globulin Ratio 1.06 Alkaline Phosphatase 66 Anion Gap 15 # Aspartate Amino Transf (AST/SGOT) 19 Basophils # 0.0 Basophils % 0.2 Blood Morphology Comment Blood Urea Nitrogen 24 H Calcium Level 7.9 L Carbon Dioxide Level 27 Chloride Level 104 Creatinine 0.79 Direct Bilirubin 0.00 Eosinophils # 0.0 Eosinophils % 0.0 Free Thyroxine 1.05 Globulin 3.00 Glucose Level 174 Hematocrit 30.0 #L Hemoglobin 10.3 #L Hemoglobin A1c 6.4 H Indirect Bilirubin 0.1 Lymphocytes # 0.8 Lymphocytes % 9.7 L Magnesium Level 1.7 Mean Corpuscular Hemoglobin 29.2 Mean Corpuscular Hemoglobin Concent 34.3 Mean Corpuscular Volume 85.0 Mean Platelet Volume 9.1 Monocytes # 0.2 L Monocytes % 2.3 Neutrophils # 7.6 H Neutrophils % 87.8 H Nucleated Red Blood Cells # 0.0 Nucleated Red Blood Cells % 0.0 Phosphorus Level 2.6 Platelet Count 213 # Potassium Level 4.8 Red Blood Count 3.53 #L Red Cell Distribution Width 16.0 H Sodium Level 141 Thyroid Stimulating Hormone (TSH) 0.867 Total Bilirubin 0.1 L Total Protein 6.2 # White Blood Count 8.6 # Arterial Blood HCO3 26.6 H Arterial Blood Base Excess 0.1 Arterial Blood Oxygen Saturation 95.2 Trell Test ACCEPTAB Arterial Blood Gas Puncture Site Left Radial Arterial Blood Carboxyhemoglobin 0.9 Arterial Blood Date Drawn 07/26/2016 8:15:46 PM Arterial Blood Methemoglobin 0.2 Arterial Blood pCO2 (Temp correct) 50.8 H Arterial Blood pH (Temp corrected) 7.337 L Arterial Blood pO2 (Temp corrected) 85.1 Blood Gas A-a O2 Differential 141.7 H Blood Gas Actual Respiration Rate 32 Blood Gas Critical Value Read Back Maria Eugenia PIEDRA Blood Gas Inspiratory Pressure 21.0 Blood Gas Low PEEP Setting 5.0 Blood Gas Mean Airway Pressure 17 Blood Gas Modality VENT - AC Blood Gas Notified Time 07/26/2016 8:42:03 PM Blood Gas Notified Whom BI Blood Gas Respiration Rate 26.0 Blood Gas Specimen Source Blood arterial Blood Gas Temperature 37.0 Blood Gas Tidal Volume 500.0 FiO2 40.0 Oxyhemoglobin Percent 94.2 Total Hemoglobin 12.7 Medications Medications Current Medications Sodium Chloride (NS) 1,000 ml @ 100 mls/hr Q10H IV Last administered on t 21:53; Admin Dose 100 MLS/HR; Start 07/26/16 at 15:40 Ondansetron HCl (Zofran Inj) 4 mg Q6H PRN IV NAUSEA AND/OR VOMITING; Start 05/02 at 16:00 Methylprednisolone Sodium Succinate (Solu-Medrol) 60 mg Q6 IV Last administered on 07/26/16t 19:31; Admin Dose 60 MG; Start 07/26/16 at 18:00 Nitroglycerin (Nitroglycerin (Sl Tab) 0.4 Mg) 1 tab Q5M PRN SL CHEST PAIN; Start 07/26/16 at 16:00 Acetaminophen (Tylenol Liquid) 650 mg Q6H PRN PO PAIN LEVEL 1-3 OR FEVER; Start 07/26/16 at 16:00 Acetaminophen (Tylenol Supp) 650 mg Q4H PRN IA PAIN LEVEL 1-3 OR FEVER; Start 07/26/16 at 16:00 Morphine Sulfate (morphine) 2 mg Q4H PRN IV PAIN LEVEL 7-10; Start 07/26/16 at 16:00 Docusate Sodium (Colace) 100 mg Q12H PRN PO CONSTIPATION; Start 07/26/16 at 16: 00 Magnesium Hydroxide (Milk Of Mag) 30 ml DAILY PRN PO CONSTIPATION; Start at 16:00 Bisacodyl (Dulcolax Supp) 10 mg DAILY PRN IA CONSTIPATION; Start 07/26/16 at 16 :00 Pantoprazole (Protonix Iv) 40 mg DAILY@06 IV ; Start 07/27/16 at 06:00 Eye Lubricant (Artificial Tears Oph) 1 drop TID BOTH EYES ; Start 07/26/16 at 21 :00 Enoxaparin Sodium 40 mg 40 mg DAILY SC ; Start 07/27/16 at 09:00 Piperacillin Sod/ Tazobactam Sod (Zosyn 3.375gm/ 100 ml (Pmx)) 100 ml @ 200 mls /hr Q8 IVPB Last administered on 07/26/16 21:51; Admin Dose 200 MLS/HR; Start 07/26/16 at 22:00 Amitriptyline HCl (Elavil) 25 mg QHS PO ; Start 07/26/16 at 21:00 Atenolol (Tenormin) 50 mg DAILY PO ; Start 07/27/16 at 09:00 Atorvastatin Calcium (Lipitor) 20 mg HS PO ; Start 07/26/16 at 21:00 Clopidogrel Bisulfate (plaVIX) 75 mg DAILY PO ; Start 07/27/16 at 09:00 Gabapentin (Neurontin) 300 mg TID PO ; Start 07/26/16 at 21:00 Insulin Glargine (Lantus) 20 unit DAILY SC ; Start 07/27/16 at 09:00 Lisinopril (Zestril) 20 mg DAILY PO ; Start 07/27/16 at 09:00 Linagliptin (Tradjenta) 5 mg DAILY PO ; Start 07/27/16 at 09:00 Insulin Aspart (Novolog Insulin Pen) NOVOLOG *MODERATE* ALGORI... Q4 SC ; Start 07/26/16 at 17:00 Miscellaneous Information 1 ea NOTE XX ; Start 07/26/16 at 16:00 Glucose (Glutose) 15 gm Q15M PRN PO DECREASED GLUCOSE; Start 07/26/16 at 16:00 Glucose (Glutose) 22.5 gm Q15M PRN PO DECREASED GLUCOSE; Start 07/26/16 at 16: 00 Dextrose (D50w Syringe) 25 ml Q15M PRN IV DECREASED GLUCOSE; Start 07/26/16 at 16:00 Dextrose (D50w Syringe) 50 ml Q15M PRN IV DECREASED GLUCOSE; Start 07/26/16 at 16:00 Glucagon (Glucagen) 1 mg Q15M PRN IM DECREASED GLUCOSE; Start 07/26/16 at 16:00 Glucose 15 gm 15 gm Q15M PRN BUCCAL DECREASED GLUCOSE; Start 07/26/16 at 16:00 Midazolam HCl/ Dextrose (Versed/D5W) 50 ml @ 2.3 mls/hr TITRATE IV Last administered on 07/26/16t 20:01; Admin Dose 2.3 MLS/HR; Start 07/26/16 at 20:00 MANUEL KIDD Jul 27, 2016 11:29
[2016-07-27] MEDS: METHYLPREDNISOLONE 125 MG INJ IV SCH (12:09)
[2016-07-27] MEDS: PANTOPRAZOLE 40 MG INJ IV SCH (12:09)
[2016-07-27] MEDS: ENOXAPARIN 40 MG/0.4 ML SYG SC SCH (12:10)
[2016-07-27] MEDS: INSULIN GLARGINE [LANtus] 3 ML PEN SC SCH (13:38)
[2016-07-27] MEDS ORDERED: VANCOMYCIN IV PER PHARMACY XX SCH (16:30)
--- NOTE | 2016-07-27 17:10 | EN ---
Date/Time of Note Date/Time of Note DATE: 07/27/16 TIME: 17:09 ER Progress Note The patient's family decided to suction his ET tube on their own without anyone else in the room and the nurse noticed that the patient's oxygen saturation started to decline to the low 90s. Respiratory therapy was called and found that the balloon was inflated yet the patient was not getting pressure on the ventilator. I looked with a laryngoscope and saw the balloon inflated but supraglottic, therefore the patient had to be reintubated Patient received 100 mg of succinylcholine Endotracheal Intubation by me: Pre assessment performed. See preceding note for details. Pre-oxygenation performed with 100% oxygen RSI: Performed w/o complication or hypoxic events. Medications as ordered. Blade: Mac 4 ET Tube: 7.0 cm Depth: 24 cm at the lip Intubation confirmed by colorimetric CO2, equal breath sounds, quiet over the stomach. YAIR TEJEDA DO Jul 27, 2016 17:10
--- NOTE | 2016-07-27 17:33 | RADRPT ---
PROCEDURE: XR Chest. CLINICAL INDICATION: Chest pain. TECHNIQUE: Single frontal view. COMPARISON: 07/26/2016. FINDINGS: The endotracheal tube remains in satisfactory position. There is a new nasogastric tube with the ti p in the stomach. There is mild right basilar atelectasis. The lungs are otherwise clear The heart is mildly enlarged. There is no pleural effusion. There is no pneumothorax. IMPRESSION: 1. Endotracheal tube and nasogastric tube in satisfactory position. 2. Mild right basilar atelectasis. 3. Cardiomegaly. RPTAT: QQ .Jasbir Castrejon MD, MD Date Time Electronically viewed and signed by .Jasbir Castrejon MD, MD on 07/27/2016 17:32 .R/
--- NOTE | 2016-07-27 18:54 | CONS ---
DATE OF ADMISSION: 07/26/2016 DATE OF CONSULTATION: 07/27/2016 REASON FOR CONSULTATION: Shortness of breath, respiratory failure. Thank you, Dr. Bernstein, for this consultation. HISTORY OF PRESENT ILLNESS: This is a 56-year-old gentleman, multiple medical problems including hy pertension, hyperlipidemia, diabetes, morbid obesity and underlying COPD, presented to the emergency department on 07/26/2016. The patient was found to be in significant respiratory distress with leslie dence of hypercapnia requiring emergent intubation and mechanical ventilation. Since that time, he has remained on mechanical ventilation in our intensive care unit. Pending ____ bed this afternoon, he was extubated accidentally by his family members, requiring emergent re-intubation. PAST MEDICAL HISTORY: COPD, hypertension, hyperlipidemia, coronary artery disease, history of CVAs, chronic pain and morbid obesity. MEDICATIONS: Per chart. ALLERGIES: Unknown. PHYSICAL EXAMINATION: GENERAL: Morbidly obese gentleman, intubated on mechanical ventilation, appears comfortable at rest . No acute distress. VITAL SIGNS: Temperature 98, pulse is 86, blood pressure 117/70, O2 sat 96%, FIO2 of 40%. NECK: Supple. No JVD or lymphadenopathy. CARDIAC: S1, S2. No added sounds or murmurs. CHEST: Diminished air entry bilaterally with rales. ABDOMEN: Soft, nontender. No guarding or rebound. EXTREMITIES: No cyanosis, clubbing. 1+ edema. NEUROLOGIC: Unable to assess. LABORATORY DATA: White count 8.6, hemoglobin 10.3, platelets of 213. BUN 24, creatinine 0.79. INR 0.9. ABG: pH 7.33, pCO2 of 50, pO2 of 85. Urinalysis was unremarkable. IMPRESSION AND PLAN: Acute hypoxemic and hypercapnic respiratory failure with underlying history of chronic obstructive pulmonary disease and coronary artery disease. The patient will require: 1. Continued mechanical ventilation. 2. Broad spectrum antibiotics. 3. Bronchodilators. 4. Steroid taper. 5. DVT and GI prophylaxis. Dictated By: RAYMUNDO LOPEZ/DARRELL Conf#: [id number] DID#: [id number]
[2016-07-27] MEDS: VANCOMYCIN 1.5 GM in SOD CHLORIDE 0.9% 250 ML IVPB SCH (19:32)
[2016-07-27 22:45] VITALS: Ht 172.7 cm; Wt 127.7 kg
[2016-07-27 23:48] VITALS: RESP 26
[2016-07-28] VITALS (56 sets, daily range): BP systolic 110–176; BP diastolic 57–103; PULSE 64–83; RESP 14–28
[2016-07-28] MEDS: SOD CHLORIDE 0.9% 1,000 ML IV SCH ×5 (00:35→09:01)
[2016-07-28] MEDS: ATORVASTATIN 20 MG TAB PO SCH ×2 (00:44→20:20)
[2016-07-28] MEDS: PROPOFOL 100 ML IV SCH ×10 (00:44→21:47)
[2016-07-28] MEDS: GABAPENTIN 300 MG CAP PO SCH ×6 (00:44→20:20)
[2016-07-28] MEDS: INSULIN ASPART [NOVOLOG] 3 ML PEN SC SCH ×11 (00:50→21:13)
[2016-07-28] MEDS: METHYLPREDNISOLONE 125 MG INJ IV SCH ×5 (00:51→05:30)
[2016-07-28] MEDS: PIPER-TAZO 3.375 GM IV (PMX) 100 ML IVPB SCH ×6 (00:51→22:30)
[2016-07-28] MEDS: ARTIFICIAL TEARS 15 ML OPH BOTH EYES SCH ×6 (00:51→20:19)
[2016-07-28] MEDS: AMITRIPTYLINE 25 MG TAB PO SCH ×2 (01:09→20:19)
[2016-07-28] MEDS: IPRATROPIUM (HFA) 12.9 GM INHALER INH SCH ×6 (01:58→21:18)
[2016-07-28] MEDS: ALBUTEROL HFA 8 GM INHALER INH SCH ×6 (01:59→21:18)
[2016-07-28 05:06] LABS: BASOPHILS % 0.1 % (0.0-2.0); EOSINOPHILS % 0.1 % (0.0-7.0); HEMATOCRIT 31.4 % (42.0-52.0); HEMOGLOBIN 10.7 g/dl (14.0-18.0); LYMPHOCYTES # 0.7 10^3/ul (0.8-2.9); MEAN CORPUSCULAR HGB CONC 33.9 g/dl (32.0-37.0); MEAN CORPUSCULAR VOLUME 85.5 fl (82.0-101.0); MEAN PLATELET VOLUME 8.7 fl (7.4-10.4); MONOCYTE # 0.3 10^3/ul (0.3-0.9); MONOCYTES % 3.3 % (0.0-11.0); NEUTROPHIL # 7.1 10^3/ul (1.6-7.5); NEUTROPHILS % 87.5 % (39.0-77.0); PLATELET COUNT 219 10^3/UL (140-440); RED BLOOD COUNT 3.68 10^6/ul (4.70-6.10); RED CELL DISTRIBUTION WIDTH 16.4 % (11.5-14.5); UNCORRECTED WBC 8.1 10^3/ul (4.8-10.8); WHITE BLOOD COUNT 8.1 10^3/ul (4.8-10.8)
[2016-07-28 05:21] LABS: CONDITION 1; LH ANALYZER COMMENTS 1
[2016-07-28] MEDS: PANTOPRAZOLE 40 MG INJ IV SCH (05:29)
[2016-07-28] MEDS: VANCOMYCIN 1.5 GM in SOD CHLORIDE 0.9% 250 ML IVPB SCH ×3 (05:30→21:05)
[2016-07-28] MEDS: MIDAZOLAM IV SCH (05:33)
[2016-07-28] MEDS: D5W IV SCH (05:33)
[2016-07-28 05:45] LABS: ALBUMIN 3.3 g/dl (3.3-4.9)
[2016-07-28 05:46] LABS: POTASSIUM 4.6 mmol/L (3.5-5.1)
[2016-07-28 05:48] LABS: ALBUMIN/GLOBULIN RATIO 1.1; BILIRUBIN,INDIRECT 0.1 mg/dl (0-1.1); BILIRUBIN,TOTAL 0.1 mg/dl (0.2-1.3); CREATININE 0.82 mg/dl (0.61-1.24); TOTAL PROTEIN 6.3 g/dl (6.1-8.1)
[2016-07-28 05:49] LABS: CALCIUM 8.3 mg/dl (8.4-10.2)
[2016-07-28 06:37] LABS: MAGNESIUM 2.2 mg/dl (1.7-2.5); PHOSPHORUS 2.5 mg/dl (2.5-4.9)
[2016-07-28] MEDS: ATENOLOL 50 MG TAB PO SCH (08:04)
[2016-07-28] MEDS: LINAGLIPTIN 5 MG TABLET PO SCH (08:05)
[2016-07-28] MEDS: LISINOPRIL 20 MG TAB PO SCH ×2 (08:05→20:20)
[2016-07-28] MEDS: CLOPIDOGREL 75 MG TAB PO SCH (08:05)
[2016-07-28] MEDS: ENOXAPARIN 40 MG/0.4 ML SYG SC SCH (08:13)
[2016-07-28] MEDS: INSULIN GLARGINE [LANtus] 3 ML PEN SC SCH (08:20)
--- NOTE | 2016-07-28 09:42 | PN ---
Date/Time of Note Date/Time of Note DATE: 07/28/16 TIME: 09:35 Assessment/Plan VTE Prophylaxis VTE Prophylaxis Intervention: LMWH Lines/Catheters IV Catheter Type (from Nrsg): Saline Lock Urinary Cath still in place: Yes (patent, draining adequate clear yellow) Reason Cath still needed: other (indicate) (intubated and monitoring UOP ) Assessment/Plan Assessment/Plan 56-year-old male with: 1. Acute respiratory failure, on admission hypercapnic and hypoxemic with known chronic obstructive pulmonary disease, possible obstructive sleep apnea and possibly underlying bronchitis. Continue IV abx, MDIs, and steroids Vent support and Dr Palomares following and ABG pending Dopplers of the lower extremities are negative. 2. Coronary artery disease, status post stent placement in the past. Continue outpatient regimen including Plavix. CE negative 2D echocardiogram, latest one done in 02/2016. 3. Diabetes mellitus. A1c 6.4 Continue Sliding scale insulin with his Lantus. Continue Tradjenta. 4. Old cerebrovascular accident. Continue current treatment and then will monitor his mental status once he is more awake and extubated. 5. Hypertension. Increase Lisinopril to 20 mg po bid, continue Atenolol and adding Hydralazine prn. 6. Diabetic neuropathy. Continue outpatient medications. 7. Major depressive disorder and anxiety disorder. The patient is currently sedated. Will re-evaluate once extubated. 8. Possible aspiration pneumonia. I agree with Zosyn. CXR stable and also on Vanco 9. Morbid obesity, possible obstructive sleep apnea. Will discuss with Pulmonary if the patient will need CPAP after he is extubated. Prophylaxis. Protonix for gastrointestinal prophylaxis, Lovenox for deep vein thrombosis prophylaxis. DISPOSITION: continue intensive care unit care, patient intubated, requiring mechanical ventilation for now, Pulmonary to see Subjective 24 Hr Interval Summary Free Text/Dictation Patient had to be re intubated in ED yesterday after family member accidentally pulled the ETT Remains stable currently on vent VSS and afebrile and labs wnl Exam/Review of Systems Vital Signs Vitals Vital Signs Date Time Temp Pulse Resp B/P Pulse Ox O2 Delivery O2 Flow Rate FiO2 07/28/16 09:24 69 26 98 50 07/28/16 08:00 99.5 140/75 Mechanical Ventilator Intake and Output 07/27/16 07/27/16 07/28/16 14:59 22:59 06:59 Intake Total 1355.5 ml Output Total 1500 ml 2000 ml 1980 ml Balance -1500 ml -2000 ml -624.5 ml Exam Constitutional: obese, other (sedated and intubated ) Respiratory: diminished breath sounds (at bases bilaterally ), other (on vent ) Cardiovascular: nl pulses, regular rate and rhythm Gastrointestinal: non-tender, soft Musculoskeletal: nl extremities to inspection Extremities: normal pulses, other (no edema, clubbing or cyanosis ) Neurological: other (sedated and inubated ) Results Result Diagram: 07/28/165 07/28/16 0435 Results 24 hrs Laboratory Tests Test 07/27/16 13:32 07/27/16 19:02 07/28/16 00:32 07/28/16 00:33 Bedside Glucose 178 200 171 183 Test 07/28/16 04:35 07/28/16 05:38 07/28/16 07:48 Alanine Aminotransferase (ALT/SGPT) 26 Albumin 3.3 Albumin/Globulin Ratio 1.10 Alkaline Phosphatase 62 Anion Gap 14 Aspartate Amino Transf (AST/SGOT) 12 L Basophils # 0.0 Basophils % 0.1 Blood Morphology Comment Blood Urea Nitrogen 24 H Calcium Level 8.3 L Carbon Dioxide Level 26 Chloride Level 107 Creatinine 0.82 Direct Bilirubin 0.00 Eosinophils # 0.0 Eosinophils % 0.1 Globulin 3.00 Glucose Level 172 Hematocrit 31.4 L Hemoglobin 10.7 L Indirect Bilirubin 0.1 Lymphocytes # 0.7 L Lymphocytes % 9.0 L Magnesium Level 2.2 Mean Corpuscular Hemoglobin 29.0 Mean Corpuscular Hemoglobin Concent 33.9 Mean Corpuscular Volume 85.5 Mean Platelet Volume 8.7 Monocytes # 0.3 Monocytes % 3.3 Neutrophils # 7.1 Neutrophils % 87.5 H Nucleated Red Blood Cells # 0.0 Nucleated Red Blood Cells % 0.0 Phosphorus Level 2.5 Platelet Count 219 Potassium Level 4.6 Red Blood Count 3.68 L Red Cell Distribution Width 16.4 H Sodium Level 142 Total Bilirubin 0.1 L Total Protein 6.3 Vancomycin Level Trough 7.4 L White Blood Count 8.1 Bedside Glucose 196 235 H Medications Medications Current Medications Sodium Chloride (NS) 1,000 ml @ 100 mls/hr Q10H IV Last administered on t 09:01; Admin Dose 100 MLS/HR; Start 07/26/16 at 15:40 Ondansetron HCl (Zofran Inj) 4 mg Q6H PRN IV NAUSEA AND/OR VOMITING; Start 05/02 at 16:00 Methylprednisolone Sodium Succinate (Solu-Medrol) 60 mg Q6 IV Last administered on 07/28/16 05:30; Admin Dose 60 MG; Start 07/26/16 at 18:00 Nitroglycerin (Nitroglycerin (Sl Tab) 0.4 Mg) 1 tab Q5M PRN SL CHEST PAIN; Start 07/26/16 at 16:00 Acetaminophen (Tylenol Liquid) 650 mg Q6H PRN PO PAIN LEVEL 1-3 OR FEVER; Start 07/26/16 at 16:00 Acetaminophen (Tylenol Supp) 650 mg Q4H PRN [place] PAIN LEVEL 1-3 OR FEVER; Start 07/26/16 at 16:00 Morphine Sulfate (morphine) 2 mg Q4H PRN IV PAIN LEVEL 7-10; Start 07/26/16 at 16:00 Docusate Sodium (Colace) 100 mg Q12H PRN PO CONSTIPATION; Start 07/26/16 at 16: 00 Magnesium Hydroxide (Milk Of Mag) 30 ml DAILY PRN PO CONSTIPATION; Start at 16:00 Bisacodyl (Dulcolax Supp) 10 mg DAILY PRN [place] CONSTIPATION; Start 07/26/16 at 16 :00 Pantoprazole (Protonix Iv) 40 mg DAILY@06 IV Last administered on 07/28/16 05: 29; Admin Dose 40 MG; Start 07/27/16 at 06:00 Eye Lubricant (Artificial Tears Oph) 1 drop TID BOTH EYES Last administered on 07/28/16 08:06; Admin Dose 1 DROP; Start 07/26/16 at 21:00 Enoxaparin Sodium 40 mg 40 mg DAILY SC Last administered on 07/28/16 08:13; Admin Dose 40 MG; Start 07/27/16 at 09:00 Piperacillin Sod/ Tazobactam Sod (Zosyn 3.375gm/ 100 ml (Pmx)) 100 ml @ 200 mls /hr Q8 IVPB Last administered on 07/28/16 05:30; Admin Dose 200 MLS/HR; Start 07/26/16 at 22:00 Amitriptyline HCl (Elavil) 25 mg QHS PO Last administered on 07/28/16 01:09; Admin Dose 25 MG; Start 07/26/16 at 21:00 Atenolol (Tenormin) 50 mg DAILY PO Last administered on 07/28/16 08:04; Admin Dose 50 MG; Start 07/27/16 at 09:00 Atorvastatin Calcium (Lipitor) 20 mg HS PO Last administered on 07/28/16 00:44 ; Admin Dose 20 MG; Start 07/26/16 at 21:00 Clopidogrel Bisulfate (plaVIX) 75 mg DAILY PO Last administered on 07/28/16 08 :05; Admin Dose 75 MG; Start 07/27/16 at 09:00 Gabapentin (Neurontin) 300 mg TID PO Last administered on 07/28/16 08:05; Admin Dose 300 MG; Start 07/26/16 at 21:00 Insulin Glargine (Lantus) 20 unit DAILY SC Last administered on 07/28/16 08:20 ; Admin Dose 20 UNIT; Start 07/27/16 at 09:00 Linagliptin (Tradjenta) 5 mg DAILY PO Last administered on 07/28/16 08:05; Admin Dose 5 MG; Start 07/27/16 at 09:00 Insulin Aspart (Novolog Insulin Pen) NOVOLOG *MODERATE* ALGORI... Q4 SC Last administered on 07/28/16 08:24; Admin Dose 6 UNIT; Start 07/26/16 at 17:00 Miscellaneous Information 1 ea NOTE XX ; Start 07/26/16 at 16:00 Glucose (Glutose) 15 gm Q15M PRN PO DECREASED GLUCOSE; Start 07/26/16 at 16:00 Glucose (Glutose) 22.5 gm Q15M PRN PO DECREASED GLUCOSE; Start 07/26/16 at 16: 00 Dextrose (D50w Syringe) 25 ml Q15M PRN IV DECREASED GLUCOSE; Start 07/26/16 at 16:00 Dextrose (D50w Syringe) 50 ml Q15M PRN IV DECREASED GLUCOSE; Start 07/26/16 at 16:00 Glucagon (Glucagen) 1 mg Q15M PRN IM DECREASED GLUCOSE; Start 07/26/16 at 16:00 Glucose 15 gm 15 gm Q15M PRN BUCCAL DECREASED GLUCOSE; Start 07/26/16 at 16:00 Midazolam HCl/ Dextrose (Versed/D5W) 50 ml @ 2.3 mls/hr TITRATE IV Last administered on 07/28/16t 05:33; Admin Dose 2.3 MLS/HR; Start 07/26/16 at 20:00 Vancomycin HCl PER PHARMACY DOSING NOTE XX ; Start 07/27/16 at 16:30 Vancomycin HCl/ Sodium Chloride (Vancocin/NS) 250 ml @ 83.333 mls/ hr Q8H IVPB ; Start 07/28/16 at 13:30 Lisinopril (Zestril) 20 mg BID PO ; Start 07/28/16 at 21:00; Status UNV Hydralazine HCl (Apresoline) 10 mg Q8H PRN IV ELEVATED BLOOD PRESSURE; Start at 09:30; Status UNV MANUEL KIDD Jul 28, 2016 09:42
--- NOTE | 2016-07-28 10:10 | CONS ---
Date/Time of Note Date/Time of Note DATE: 07/28/16 TIME: 10:06 Consult Date/Type/Reason Admit Date/Time Jul 27, 2016 at 15:45 Initial Consult Date Type of Consultation: pulmonary Subjective Patient stable no new events continues mechanical ventilation Currently hemodynamically stable Objective Vital Signs Date Time Temp Pulse Resp B/P Pulse Ox O2 Delivery O2 Flow Rate FiO2 07/28/16 09:24 69 26 98 50 07/28/16 08:00 99.5 140/75 Mechanical Ventilator Intake and Output 07/27/16 07/27/16 07/28/16 15:00 23:00 07:00 Intake Total 1492.0 ml Output Total 1500 ml 2000 ml 2280 ml Balance -1500 ml -2000 ml -788.0 ml PHYSICAL EXAMINATION: GENERAL: Morbidly obese gentleman, intubated on mechanical ventilation, appears comfortable at rest. No acute distress. VITAL SIGNS: As above NECK: Supple. No JVD or lymphadenopathy. CARDIAC: S1, S2. No added sounds or murmurs. CHEST: Diminished air entry bilaterally with rales. ABDOMEN: Soft, nontender. No guarding or rebound. EXTREMITIES: No cyanosis, clubbing. 1+ edema. NEUROLOGIC: Unable to assess. Results/Medications Result Diagram: 07/28/16 0435 07/28/16 0435 Results 24 hrs Laboratory Tests Test 07/27/16 13:32 07/27/16 19:02 07/28/16 00:32 07/28/16 00:33 Bedside Glucose 178 200 171 183 Test 07/28/16 04:35 07/28/16 05:38 07/28/16 07:48 Alanine Aminotransferase (ALT/SGPT) 26 Albumin 3.3 Albumin/Globulin Ratio 1.10 Alkaline Phosphatase 62 Anion Gap 14 Aspartate Amino Transf (AST/SGOT) 12 L Basophils # 0.0 Basophils % 0.1 Blood Morphology Comment Blood Urea Nitrogen 24 H Calcium Level 8.3 L Carbon Dioxide Level 26 Chloride Level 107 Creatinine 0.82 Direct Bilirubin 0.00 Eosinophils # 0.0 Eosinophils % 0.1 Globulin 3.00 Glucose Level 172 Hematocrit 31.4 L Hemoglobin 10.7 L Indirect Bilirubin 0.1 Lymphocytes # 0.7 L Lymphocytes % 9.0 L Magnesium Level 2.2 Mean Corpuscular Hemoglobin 29.0 Mean Corpuscular Hemoglobin Concent 33.9 Mean Corpuscular Volume 85.5 Mean Platelet Volume 8.7 Monocytes # 0.3 Monocytes % 3.3 Neutrophils # 7.1 Neutrophils % 87.5 H Nucleated Red Blood Cells # 0.0 Nucleated Red Blood Cells % 0.0 Phosphorus Level 2.5 Platelet Count 219 Potassium Level 4.6 Red Blood Count 3.68 L Red Cell Distribution Width 16.4 H Sodium Level 142 Total Bilirubin 0.1 L Total Protein 6.3 Vancomycin Level Trough 7.4 L White Blood Count 8.1 Bedside Glucose 196 235 H Medications Current Medications Sodium Chloride (NS) 1,000 ml @ 100 mls/hr Q10H IV Last administered on 09:01; Admin Dose 100 MLS/HR; Start 07/26/16 at 15:40 Ondansetron HCl (Zofran Inj) 4 mg Q6H PRN IV NAUSEA AND/OR VOMITING; Start 05/02 at 16:00 Methylprednisolone Sodium Succinate (Solu-Medrol) 60 mg Q6 IV Last administered on 07/28/16 05:30; Admin Dose 60 MG; Start 07/26/16 at 18:00 Nitroglycerin (Nitroglycerin (Sl Tab) 0.4 Mg) 1 tab Q5M PRN SL CHEST PAIN; Start 07/26/16 at 16:00 Acetaminophen (Tylenol Liquid) 650 mg Q6H PRN PO PAIN LEVEL 1-3 OR FEVER; Start 07/26/16 at 16:00 Acetaminophen (Tylenol Supp) 650 mg Q4H PRN [place] PAIN LEVEL 1-3 OR FEVER; Start 07/26/16 at 16:00 Morphine Sulfate (morphine) 2 mg Q4H PRN IV PAIN LEVEL 7-10; Start 07/26/16 at 16:00 Docusate Sodium (Colace) 100 mg Q12H PRN PO CONSTIPATION; Start 07/26/16 at 16: 00 Magnesium Hydroxide (Milk Of Mag) 30 ml DAILY PRN PO CONSTIPATION; Start at 16:00 Bisacodyl (Dulcolax Supp) 10 mg DAILY PRN [place] CONSTIPATION; Start 07/26/16 at 16 :00 Pantoprazole (Protonix Iv) 40 mg DAILY@06 IV Last administered on 07/28/16 05: 29; Admin Dose 40 MG; Start 07/27/16 at 06:00 Eye Lubricant (Artificial Tears Oph) 1 drop TID BOTH EYES Last administered on 07/28/16 08:06; Admin Dose 1 DROP; Start 07/26/16 at 21:00 Enoxaparin Sodium 40 mg 40 mg DAILY SC Last administered on 07/28/16 08:13; Admin Dose 40 MG; Start 07/27/16 at 09:00 Piperacillin Sod/ Tazobactam Sod (Zosyn 3.375gm/ 100 ml (Pmx)) 100 ml @ 200 mls /hr Q8 IVPB Last administered on 07/28/16 05:30; Admin Dose 200 MLS/HR; Start 07/26/16 at 22:00 Amitriptyline HCl (Elavil) 25 mg QHS PO Last administered on 07/28/16 01:09; Admin Dose 25 MG; Start 07/26/16 at 21:00 Atenolol (Tenormin) 50 mg DAILY PO Last administered on 07/28/16 08:04; Admin Dose 50 MG; Start 07/27/16 at 09:00 Atorvastatin Calcium (Lipitor) 20 mg HS PO Last administered on 07/28/16 00:44 ; Admin Dose 20 MG; Start 07/26/16 at 21:00 Clopidogrel Bisulfate (plaVIX) 75 mg DAILY PO Last administered on 07/28/16 08 :05; Admin Dose 75 MG; Start 07/27/16 at 09:00 Gabapentin (Neurontin) 300 mg TID PO Last administered on 07/28/16 08:05; Admin Dose 300 MG; Start 07/26/16 at 21:00 Insulin Glargine (Lantus) 20 unit DAILY SC Last administered on 07/28/16 08:20 ; Admin Dose 20 UNIT; Start 07/27/16 at 09:00 Linagliptin (Tradjenta) 5 mg DAILY PO Last administered on 07/28/16 08:05; Admin Dose 5 MG; Start 07/27/16 at 09:00 Insulin Aspart (Novolog Insulin Pen) NOVOLOG *MODERATE* ALGORI... Q4 SC Last administered on 07/28/16 08:24; Admin Dose 6 UNIT; Start 07/26/16 at 17:00 Miscellaneous Information 1 ea NOTE XX ; Start 07/26/16 at 16:00 Glucose (Glutose) 15 gm Q15M PRN PO DECREASED GLUCOSE; Start 07/26/16 at 16:00 Glucose (Glutose) 22.5 gm Q15M PRN PO DECREASED GLUCOSE; Start 07/26/16 at 16: 00 Dextrose (D50w Syringe) 25 ml Q15M PRN IV DECREASED GLUCOSE; Start 07/26/16 at 16:00 Dextrose (D50w Syringe) 50 ml Q15M PRN IV DECREASED GLUCOSE; Start 07/26/16 at 16:00 Glucagon (Glucagen) 1 mg Q15M PRN IM DECREASED GLUCOSE; Start 07/26/16 at 16:00 Glucose 15 gm 15 gm Q15M PRN BUCCAL DECREASED GLUCOSE; Start 07/26/16 at 16:00 Midazolam HCl/ Dextrose (Versed/D5W) 50 ml @ 2.3 mls/hr TITRATE IV Last administered on 07/28/16t 05:33; Admin Dose 2.3 MLS/HR; Start 07/26/16 at 20:00 Vancomycin HCl PER PHARMACY DOSING NOTE XX ; Start 07/27/16 at 16:30 Vancomycin HCl/ Sodium Chloride (Vancocin/NS) 250 ml @ 83.333 mls/ hr Q8H IVPB ; Start 07/28/16 at 13:30 Lisinopril (Zestril) 20 mg BID PO ; Start 07/28/16 at 21:00 Hydralazine HCl (Apresoline) 10 mg Q8H PRN IV ELEVATED BLOOD PRESSURE; Start at 09:30 Assessment/Plan Chief Complaint/Hosp Course Assessment 1. Hypoxemic respiratory failure 2. congestive cardiac failure 3. Probable obstructive sleep apnea 4. Morbid obesity 5. Diabetes mellitus The patient will require: 1. Continued mechanical ventilation. 2. Broad spectrum antibiotics. 3. Bronchodilators. 4. Steroid taper. 5. DVT and GI prophylaxis. 6. Start nasogastric tube feeding Problems: RAYMUNDO BARAKAT MD, [facility] Jul 28, 2016 10:10
[2016-07-28 10:22] LABS: AADO2 Arterial 235.4 mmHg (7.0-24.0); Allen Test ACCEPTAB; Arterial Base Excess 3.3 mmol/L (-3.0-3); Arterial COHb 0.2 % (0.0-3.0); Arterial Fraction of Oxyhgb 94.7 % (93.0-99.0); Arterial HCO3 27.1 mmol/L (22.0-26.0); Arterial MetHb 0.2 % (0.0-1.5); Arterial Total Hemglobin 11.6 g/dl (12.0-18.0); MODE VENT - AC
[2016-07-28] MEDS: METHYLPREDNISOLONE 40 MG INJ IV SCH (20:19)
[2016-07-29] VITALS (38 sets, daily range): BP systolic 132–189; BP diastolic 67–124; PULSE 59–140; RESP 13–27
[2016-07-29] MEDS: IPRATROPIUM (HFA) 12.9 GM INHALER INH SCH ×3 (01:08→09:00)
[2016-07-29] MEDS: ALBUTEROL HFA 8 GM INHALER INH SCH ×3 (01:08→09:00)
[2016-07-29] MEDS: PROPOFOL 100 ML IV SCH ×4 (01:17→08:38)
[2016-07-29] MEDS: INSULIN ASPART [NOVOLOG] 3 ML PEN SC SCH ×6 (01:30→21:00)
[2016-07-29] MEDS: SOD CHLORIDE 0.9% 1,000 ML IV SCH ×3 (03:33→23:40)
[2016-07-29 05:29] LABS: POTASSIUM 4.4 mmol/L (3.5-5.1)
[2016-07-29 05:30] LABS: HEMATOCRIT 32.5 % (42.0-52.0); LYMPHOCYTES # 0.8 10^3/ul (0.8-2.9); MEAN CORPUSCULAR VOLUME 85.4 fl (82.0-101.0); MONOCYTE # 0.7 10^3/ul (0.3-0.9); MONOCYTES % 7.5 % (0.0-11.0); NEUTROPHILS % 84.5 % (39.0-77.0); PLATELET COUNT 221 10^3/UL (140-440); RED CELL DISTRIBUTION WIDTH 16.1 % (11.5-14.5); UNCORRECTED WBC 9.4 10^3/ul (4.8-10.8); WHITE BLOOD COUNT 9.4 10^3/ul (4.8-10.8)
[2016-07-29 05:31] LABS: CONDITION 1; LH ANALYZER COMMENTS 1
[2016-07-29 05:32] LABS: CALCIUM 8.5 mg/dl (8.4-10.2); CREATININE 0.96 mg/dl (0.61-1.24)
[2016-07-29] MEDS: PIPER-TAZO 3.375 GM IV (PMX) 100 ML IVPB SCH ×3 (05:41→21:18)
[2016-07-29] MEDS: PANTOPRAZOLE 40 MG INJ IV SCH (05:41)
[2016-07-29] MEDS: VANCOMYCIN 1.5 GM in SOD CHLORIDE 0.9% 250 ML IVPB SCH (06:05)
[2016-07-29] MEDS: MIDAZOLAM IV SCH (06:14)
[2016-07-29] MEDS: D5W IV SCH (06:14)
[2016-07-29] MEDS: LISINOPRIL 20 MG TAB PO SCH ×2 (08:43→21:09)
[2016-07-29] MEDS: GABAPENTIN 300 MG CAP PO SCH ×3 (08:43→21:06)
[2016-07-29] MEDS: METHYLPREDNISOLONE 40 MG INJ IV SCH ×2 (08:43→21:19)
[2016-07-29] MEDS: CLOPIDOGREL 75 MG TAB PO SCH (08:43)
[2016-07-29] MEDS: ARTIFICIAL TEARS 15 ML OPH BOTH EYES SCH ×3 (08:44→21:00)
[2016-07-29] MEDS: LINAGLIPTIN 5 MG TABLET PO SCH (08:44)
[2016-07-29] MEDS: ATENOLOL 50 MG TAB PO SCH (08:44)
[2016-07-29] MEDS: ENOXAPARIN 40 MG/0.4 ML SYG SC SCH (08:46)
[2016-07-29] MEDS: INSULIN GLARGINE [LANtus] 3 ML PEN SC SCH (08:47)
[2016-07-29] MEDS: hydrALAzine 20 MG INJ IV PRN ×3 (09:39→22:12)
--- NOTE | 2016-07-29 09:43 | PN ---
Date/Time of Note Date/Time of Note DATE: 07/29/16 TIME: 09:21 Assessment/Plan VTE Prophylaxis VTE Prophylaxis Intervention: LMWH Lines/Catheters IV [facility]ter Type (from [facility]): Saline Lock Urinary Cath still in place: Yes Reason Cath still needed: other (indicate) (for UOP ) Assessment/Plan Assessment/Plan 56-year-old male with: 1. Acute respiratory failure, on admission hypercapnic and hypoxemic with known chronic obstructive pulmonary disease, possible obstructive sleep apnea and possibly underlying bronchitis. Continue IV abx, MDIs, and steroids Self extubated this AM and stable for now, BiPAP if needed Continue IV abx for now as risk for aspiration with self extubation Dopplers of the lower extremities are negative. 2. Coronary artery disease, status post stent placement in the past. Continue outpatient regimen including Plavix. CE negative 2D echocardiogram, latest one done in 02/2016. 3. Diabetes mellitus. A1c 6.4 Continue Sliding scale insulin with his Lantus. Continue Tradjenta. 4. Old cerebrovascular accident. Continue current treatment and then will monitor his mental status once he is more awake and extubated. 5. Hypertension. Increase Lisinopril to 20 mg po bid, continue Atenolol and adding Hydralazine prn. 6. Diabetic neuropathy. Continue outpatient medications. 7. Major depressive disorder and anxiety disorder. The patient is currently sedated. Will re-evaluate once extubated. 8. Possible aspiration pneumonia. I agree with Zosyn. CXR stable and also on Vanco 9. Morbid obesity, possible obstructive sleep apnea. Patient may need CPAP. Prophylaxis. Protonix for gastrointestinal prophylaxis, Lovenox for deep vein thrombosis prophylaxis. DISPOSITION: Patient self intubated, and to be kept in ICU for monitoring for today and if stable transfer to [facility] within 24 hrs Subjective 24 Hr Interval Summary Free Text/Dictation Patient awake and alert , he self extubated while on CPAP trial this AM Afebrile and WBC wnl Exam/Review of Systems Vital Signs Vitals Vital Signs Date Time Temp Pulse Resp B/P Pulse Ox O2 Delivery O2 Flow Rate FiO2 07/29/16 07:50 62 26 98 50 07/29/16 05:30 148/84 07/29/16 04:00 99.0 07/29/16 03:00 Mechanical Ventilator Intake and Output 07/28/16 07/28/16 07/29/16 15:00 23:00 07:00 Intake Total 504.5 ml 1352.166 ml 1632.833 ml Output Total 750 ml 795 ml 1120 ml Balance -245.5 ml 557.166 ml 512.833 ml Exam Constitutional: alert, obese, oriented Respiratory: diminished breath sounds (bases ), other (patient self extubated ) Cardiovascular: nl pulses, regular rate and rhythm Gastrointestinal: non-tender, soft Musculoskeletal: nl extremities to inspection Extremities: normal pulses Neurological: BELL SPINNER SOUSAPHONES II-XII intact, other (awake and alert, just self extubated ) Results Result Diagram: 07/29/16 0505 07/29/16 0445 Results 24 hrs Laboratory Tests Test 07/28/16 09:31 07/28/16 13:02 07/28/16 18:03 07/28/16 20:59 Arterial Blood HCO3 27.1 H Arterial Blood Base Excess 3.3 H Arterial Blood Oxygen Saturation 95.1 Trell Test ACCEPTAB Arterial Blood Gas Puncture Site Right Radial Arterial Blood Carboxyhemoglobin 0.2 Arterial Blood Date Drawn 07/28/2016 10:11:01 AM Arterial Blood Methemoglobin 0.2 Arterial Blood pCO2 (Temp correct) 38.2 Arterial Blood pH (Temp corrected) 7.469 H Arterial Blood pO2 (Temp corrected) 78.1 L Blood Gas A-a O2 Differential 235.4 H Blood Gas Actual Respiration Rate 16 Blood Gas Low PEEP Setting 5.0 Blood Gas Modality VENT - AC Blood Gas Notified Time 07/28/2016 10:22:46 AM Blood Gas Notified Whom JLD Blood Gas Respiration Rate 16.0 Blood Gas Specimen Source Blood arterial Blood Gas Temperature 37.0 Blood Gas Tidal Volume 500.0 FiO2 50.0 Oxyhemoglobin Percent 94.7 Total Hemoglobin 11.6 L Bedside Glucose 216 177 167 Test 07/29/16 01:23 07/29/16 04:45 07/29/16 05:05 07/29/16 05:40 Bedside Glucose 179 209 Anion Gap 13 Blood Urea Nitrogen 24 H Calcium Level 8.5 Carbon Dioxide Level 27 Chloride Level 109 Creatinine 0.96 Glucose Level 208 Magnesium Level 2.3 Phosphorus Level 3.5 Potassium Level 4.4 Sodium Level 145 H Vancomycin Level Trough 17.0 Basophils # 0.0 Basophils % 0.0 Blood Morphology Comment Eosinophils # 0.0 Eosinophils % 0.0 Hematocrit 32.5 L Hemoglobin 11.0 L Lymphocytes # 0.8 Lymphocytes % 8.0 L Mean Corpuscular Hemoglobin 29.0 Mean Corpuscular Hemoglobin Concent 34.0 Mean Corpuscular Volume 85.4 Mean Platelet Volume 9.0 Monocytes # 0.7 Monocytes % 7.5 Neutrophils # 8.0 H Neutrophils % 84.5 H Nucleated Red Blood Cells # 0.0 Nucleated Red Blood Cells % 0.0 Platelet Count 221 Red Blood Count 3.80 L Red Cell Distribution Width 16.1 H White Blood Count 9.4 Medications Medications Current Medications Sodium Chloride (NS) 1,000 ml @ 100 mls/hr Q10H IV Last administered on 03:33; Admin Dose 100 MLS/HR; Start 07/26/16 at 15:40 Ondansetron HCl (Zofran Inj) 4 mg Q6H PRN IV NAUSEA AND/OR VOMITING; Start 05/02 at 16:00 Nitroglycerin (Nitroglycerin (Sl Tab) 0.4 Mg) 1 tab Q5M PRN SL CHEST PAIN; Start 07/26/16 at 16:00 Acetaminophen (Tylenol Liquid) 650 mg Q6H PRN PO PAIN LEVEL 1-3 OR FEVER; Start 07/26/16 at 16:00 Acetaminophen (Tylenol Supp) 650 mg Q4H PRN [place] PAIN LEVEL 1-3 OR FEVER; Start 07/26/16 at 16:00 Morphine Sulfate (morphine) 2 mg Q4H PRN IV PAIN LEVEL 7-10; Start 07/26/16 at 16:00 Docusate Sodium (Colace) 100 mg Q12H PRN PO CONSTIPATION; Start 07/26/16 at 16: 00 Magnesium Hydroxide (Milk Of Mag) 30 ml DAILY PRN PO CONSTIPATION; Start at 16:00 Bisacodyl (Dulcolax Supp) 10 mg DAILY PRN [place] CONSTIPATION; Start 07/26/16 at 16 :00 Pantoprazole (Protonix Iv) 40 mg DAILY@06 IV Last administered on 07/29/16 05: 41; Admin Dose 40 MG; Start 07/27/16 at 06:00 Eye Lubricant (Artificial Tears Oph) 1 drop TID BOTH EYES Last administered on 07/29/16 08:44; Admin Dose 1 DROP; Start 07/26/16 at 21:00 Enoxaparin Sodium 40 mg 40 mg DAILY SC Last administered on 07/29/16 08:46; Admin Dose 40 MG; Start 07/27/16 at 09:00 Piperacillin Sod/ Tazobactam Sod (Zosyn 3.375gm/ 100 ml (Pmx)) 100 ml @ 200 mls /hr Q8 IVPB Last administered on 07/29/16 05:41; Admin Dose 200 MLS/HR; Start 07/26/16 at 22:00 Amitriptyline HCl (Elavil) 25 mg QHS PO Last administered on 07/28/16 20:19; Admin Dose 25 MG; Start 07/26/16 at 21:00 Atenolol (Tenormin) 50 mg DAILY PO Last administered on 07/29/16 08:44; Admin Dose 50 MG; Start 07/27/16 at 09:00 Atorvastatin Calcium (Lipitor) 20 mg HS PO Last administered on 07/28/16 20:20 ; Admin Dose 20 MG; Start 07/26/16 at 21:00 Clopidogrel Bisulfate (plaVIX) 75 mg DAILY PO Last administered on 07/29/16 08 :43; Admin Dose 75 MG; Start 07/27/16 at 09:00 Gabapentin (Neurontin) 300 mg TID PO Last administered on 07/29/16 08:43; Admin Dose 300 MG; Start 07/26/16 at 21:00 Insulin Glargine (Lantus) 20 unit DAILY SC Last administered on 07/29/16 08:47 ; Admin Dose 20 UNIT; Start 07/27/16 at 09:00 Linagliptin (Tradjenta) 5 mg DAILY PO Last administered on 07/29/16 08:44; Admin Dose 5 MG; Start 07/27/16 at 09:00 Insulin Aspart (Novolog Insulin Pen) NOVOLOG *MODERATE* ALGORI... Q4 SC Last administered on 07/29/16 06:02; Admin Dose 4 UNIT; Start 07/26/16 at 17:00 Miscellaneous Information 1 ea NOTE XX ; Start 07/26/16 at 16:00 Glucose (Glutose) 15 gm Q15M PRN PO DECREASED GLUCOSE; Start 07/26/16 at 16:00 Glucose (Glutose) 22.5 gm Q15M PRN PO DECREASED GLUCOSE; Start 07/26/16 at 16: 00 Dextrose (D50w Syringe) 25 ml Q15M PRN IV DECREASED GLUCOSE; Start 07/26/16 at 16:00 Dextrose (D50w Syringe) 50 ml Q15M PRN IV DECREASED GLUCOSE; Start 07/26/16 at 16:00 Glucagon (Glucagen) 1 mg Q15M PRN IM DECREASED GLUCOSE; Start 07/26/16 at 16:00 Glucose 15 gm 15 gm Q15M PRN BUCCAL DECREASED GLUCOSE; Start 07/26/16 at 16:00 Midazolam HCl/ Dextrose (Versed/D5W) 50 ml @ 2.3 mls/hr TITRATE IV Last administered on 07/29/16 06:14; Admin Dose 4.6 MLS/HR; Start 07/26/16 at 20:00 Vancomycin HCl (Vanco Iv Per Pharmacy) PER PHARMACY DOSING NOTE XX ; Start 07/27 at 16:30 Lisinopril (Zestril) 20 mg BID PO Last administered on 07/29/16 08:43; Admin Dose 20 MG; Start 07/28/16 at 21:00 Hydralazine HCl (Apresoline) 10 mg Q8H PRN IV ELEVATED BLOOD PRESSURE; Start at 09:30 Methylprednisolone Sodium Succinate 40 mg 40 mg Q12 IV Last administered on 08:43; Admin Dose 40 MG; Start 07/28/16 at 21:00 Vancomycin HCl/ Sodium Chloride (Vancocin/NS) 250 ml @ 83.333 mls/ hr Q8H IVPB ; Start 07/29/16 at 14:00 MANUEL KIDD Jul 29, 2016 09:32
--- NOTE | 2016-07-29 10:16 | RADRPT ---
PROCEDURE: XR Chest. CLINICAL INDICATION: Acute respiratory failure. TECHNIQUE: Single frontal view. COMPARISON: 07/27/2016. FINDINGS: The endotracheal tube remains in satisfactory position. There is a nasogastric tube with the tip in the stomach and the sideport in the region of the GE junction. There is mild right basilar atelect asis. The lungs are otherwise clear The heart is mildly enlarged. There is no pleural effusion. T here is no pneumothorax. IMPRESSION: 1. No significant interval change. Persistent mild right basilar atelectasis. 2. Endotracheal tube in satisfactory position. NG tube tip in stomach with the sideport region of t he GE junction. 3. Cardiomegaly. RPTAT: JJ .Toñito Titus MD, MD Date Time Electronically viewed and signed by .Toñito Titus MD, on 07/29/2016 10:16 .A/
[2016-07-29] MEDS ORDERED: LORAZEPAM 2 MG INJ IV ONE (10:30)
--- NOTE | 2016-07-29 10:57 | CONS ---
Date/Time of Note Date/Time of Note DATE: 07/29/16 TIME: 10:55 Consult Date/Type/Reason Admit Date/Time Jul 27, 2016 at 15:45 Type of Consultation: pulmonary Subjective Self extubated this morning Agitated comfortable at rest No acute distress Objective Vital Signs Date Time Temp Pulse Resp B/P Pulse Ox O2 Delivery O2 Flow Rate FiO2 07/29/16 09:30 Nasal Cannula 3.0 07/29/16 09:30 89 14 170/124 100 07/29/16 08:00 99.4 07/29/16 07:50 50 Intake and Output 07/28/16 07/28/16 07/29/16 15:00 23:00 07:00 Intake Total 504.5 ml 1352.166 ml 1632.833 ml Output Total 750 ml 795 ml 1120 ml Balance -245.5 ml 557.166 ml 512.833 ml PHYSICAL EXAMINATION: GENERAL: Morbidly obese gentleman, appears comfortable no acute distress VITAL SIGNS: As above NECK: Supple. No JVD or lymphadenopathy. CARDIAC: S1, S2. No added sounds or murmurs. CHEST: Diminished air entry bilaterally with rales. ABDOMEN: Soft, nontender. No guarding or rebound. EXTREMITIES: No cyanosis, clubbing. 1+ edema. NEUROLOGIC: Unable to assess. Results/Medications Result Diagram: 07/29/16 0505 07/29/16 0445 Results 24 hrs Laboratory Tests Test 07/28/16 13:02 07/28/16 18:03 07/28/16 20:59 07/29/16 01:23 Bedside Glucose 216 177 167 179 Test 07/29/16 04:45 07/29/16 05:05 07/29/16 05:40 07/29/16 09:35 Anion Gap 13 Blood Urea Nitrogen 24 H Calcium Level 8.5 Carbon Dioxide Level 27 Chloride Level 109 Creatinine 0.96 Glucose Level 208 Magnesium Level 2.3 Phosphorus Level 3.5 Potassium Level 4.4 Sodium Level 145 H Vancomycin Level Trough 17.0 Basophils # 0.0 Basophils % 0.0 Blood Morphology Comment Eosinophils # 0.0 Eosinophils % 0.0 Hematocrit 32.5 L Hemoglobin 11.0 L Lymphocytes # 0.8 Lymphocytes % 8.0 L Mean Corpuscular Hemoglobin 29.0 Mean Corpuscular Hemoglobin Concent 34.0 Mean Corpuscular Volume 85.4 Mean Platelet Volume 9.0 Monocytes # 0.7 Monocytes % 7.5 Neutrophils # 8.0 H Neutrophils % 84.5 H Nucleated Red Blood Cells # 0.0 Nucleated Red Blood Cells % 0.0 Platelet Count 221 Red Blood Count 3.80 L Red Cell Distribution Width 16.1 H White Blood Count 9.4 Bedside Glucose 209 190 Medications Current Medications Sodium Chloride (NS) 1,000 ml @ 100 mls/hr Q10H IV Last administered on 03:33; Admin Dose 100 MLS/HR; Start 07/26/16 at 15:40 Ondansetron HCl (Zofran Inj) 4 mg Q6H PRN IV NAUSEA AND/OR VOMITING; Start 05/02 at 16:00 Nitroglycerin (Nitroglycerin (Sl Tab) 0.4 Mg) 1 tab Q5M PRN SL CHEST PAIN; Start 07/26/16 at 16:00 Acetaminophen (Tylenol Liquid) 650 mg Q6H PRN PO PAIN LEVEL 1-3 OR FEVER; Start 07/26/16 at 16:00 Acetaminophen (Tylenol Supp) 650 mg Q4H PRN [place] PAIN LEVEL 1-3 OR FEVER; Start 07/26/16 at 16:00 Morphine Sulfate (morphine) 2 mg Q4H PRN IV PAIN LEVEL 7-10; Start 07/26/16 at 16:00 Docusate Sodium (Colace) 100 mg Q12H PRN PO CONSTIPATION; Start 07/26/16 at 16: 00 Magnesium Hydroxide (Milk Of Mag) 30 ml DAILY PRN PO CONSTIPATION; Start at 16:00 Bisacodyl (Dulcolax Supp) 10 mg DAILY PRN [place] CONSTIPATION; Start 07/26/16 at 16 :00 Pantoprazole (Protonix Iv) 40 mg DAILY@06 IV Last administered on 07/29/16 05: 41; Admin Dose 40 MG; Start 07/27/16 at 06:00 Eye Lubricant (Artificial Tears Oph) 1 drop TID BOTH EYES Last administered on 07/29/16 08:44; Admin Dose 1 DROP; Start 07/26/16 at 21:00 Enoxaparin Sodium 40 mg 40 mg DAILY SC Last administered on 07/29/16 08:46; Admin Dose 40 MG; Start 07/27/16 at 09:00 Piperacillin Sod/ Tazobactam Sod (Zosyn 3.375gm/ 100 ml (Pmx)) 100 ml @ 200 mls /hr Q8 IVPB Last administered on 07/29/16 05:41; Admin Dose 200 MLS/HR; Start 07/26/16 at 22:00 Amitriptyline HCl (Elavil) 25 mg QHS PO Last administered on 07/28/16 20:19; Admin Dose 25 MG; Start 07/26/16 at 21:00 Atenolol (Tenormin) 50 mg DAILY PO Last administered on 07/29/16 08:44; Admin Dose 50 MG; Start 07/27/16 at 09:00 Atorvastatin Calcium (Lipitor) 20 mg HS PO Last administered on 07/28/16 20:20 ; Admin Dose 20 MG; Start 07/26/16 at 21:00 Clopidogrel Bisulfate (plaVIX) 75 mg DAILY PO Last administered on 07/29/16 08 :43; Admin Dose 75 MG; Start 07/27/16 at 09:00 Gabapentin (Neurontin) 300 mg TID PO Last administered on 07/29/16 08:43; Admin Dose 300 MG; Start 07/26/16 at 21:00 Insulin Glargine (Lantus) 20 unit DAILY SC Last administered on 07/29/16 08:47 ; Admin Dose 20 UNIT; Start 07/27/16 at 09:00 Linagliptin (Tradjenta) 5 mg DAILY PO Last administered on 07/29/16 08:44; Admin Dose 5 MG; Start 07/27/16 at 09:00 Insulin Aspart (Novolog Insulin Pen) NOVOLOG *MODERATE* ALGORI... Q4 SC Last administered on 07/29/16 09:38; Admin Dose 4 UNIT; Start 07/26/16 at 17:00 Miscellaneous Information 1 ea NOTE XX ; Start 07/26/16 at 16:00 Glucose (Glutose) 15 gm Q15M PRN PO DECREASED GLUCOSE; Start 07/26/16 at 16:00 Glucose (Glutose) 22.5 gm Q15M PRN PO DECREASED GLUCOSE; Start 07/26/16 at 16: 00 Dextrose (D50w Syringe) 25 ml Q15M PRN IV DECREASED GLUCOSE; Start 07/26/16 at 16:00 Dextrose (D50w Syringe) 50 ml Q15M PRN IV DECREASED GLUCOSE; Start 07/26/16 at 16:00 Glucagon (Glucagen) 1 mg Q15M PRN IM DECREASED GLUCOSE; Start 07/26/16 at 16:00 Glucose 15 gm 15 gm Q15M PRN BUCCAL DECREASED GLUCOSE; Start 07/26/16 at 16:00 Midazolam HCl/ Dextrose (Versed/D5W) 50 ml @ 2.3 mls/hr TITRATE IV Last administered on 07/29/16 06:14; Admin Dose 4.6 MLS/HR; Start 07/26/16 at 20:00 Vancomycin HCl (Vanco Iv Per Pharmacy) PER PHARMACY DOSING NOTE XX ; Start 07/27 at 16:30 Lisinopril (Zestril) 20 mg BID PO Last administered on 07/29/16 08:43; Admin Dose 20 MG; Start 07/28/16 at 21:00 Hydralazine HCl (Apresoline) 10 mg Q8H PRN IV ELEVATED BLOOD PRESSURE Last administered on 07/29/16 09:39; Admin Dose 10 MG; Start 07/28/16 at 09:30 Methylprednisolone Sodium Succinate 40 mg 40 mg Q12 IV Last administered on 08:43; Admin Dose 40 MG; Start 07/28/16 at 21:00 Vancomycin HCl/ Sodium Chloride (Vancocin/NS) 250 ml @ 83.333 mls/ hr Q8H IVPB ; Start 07/29/16 at 14:00 Miscellaneous Information (*Rx Drug Level Order Reminder*) VANCO TR LEVEL PRIOR... ONCE ONCE XX ; Start 07/30/16 at 13:00; Stop 07/30/16 at 13:01 Assessment/Plan Chief Complaint/Hosp Course Assessment 1. Hypoxemic respiratory failure 2. congestive cardiac failure 3. Probable obstructive sleep apnea 4. Morbid obesity 5. Diabetes mellitus The patient will require: 1. Continue noninvasive positive pressure ventilation, pulmonary toilet 2. Broad spectrum antibiotics. 3. Bronchodilators. 4. Steroid taper. 5. DVT and GI prophylaxis. 6. Speech therapy evaluation in the a.m. Problems: RAYMUNDO BARKAAT MD, [facility] Jul 29, 2016 10:56
[2016-07-29] MEDS ORDERED: HALOPERIDOL 5 MG INJ IM ONE (11:30)
[2016-07-29] MEDS: morphine 2 MG INJ IV PRN ×3 (12:24→22:06)
[2016-07-29] MEDS: ALBUTEROL/IPRATROPIUM (NEB) 3 ML AMP HHN SCH ×3 (13:19→20:22)
[2016-07-29] MEDS: VANCOMYCIN 1.25 GM in SOD CHLORIDE 0.9% 250 ML IVPB SCH ×2 (14:34→21:19)
[2016-07-29] MEDS: ATORVASTATIN 20 MG TAB PO SCH (21:06)
[2016-07-29] MEDS: AMITRIPTYLINE 25 MG TAB PO SCH (21:07)
[2016-07-29] MEDS: HALOPERIDOL 5 MG INJ IM PRN (22:09)
[2016-07-30] VITALS (24 sets, daily range): BP systolic 118–166; BP diastolic 57–115; PULSE 75–107; RESP 13–23
[2016-07-30] MEDS: ALBUTEROL/IPRATROPIUM (NEB) 3 ML AMP HHN SCH ×5 (00:14→20:13)
[2016-07-30] MEDS: NITROGLYCERIN 2% 1 GM OINT PKT TD SCH ×4 (00:35→19:23)
[2016-07-30] MEDS: INSULIN ASPART [NOVOLOG] 3 ML PEN SC SCH ×6 (00:35→21:00)
[2016-07-30] MEDS: HALOPERIDOL 5 MG INJ IM PRN (03:11)
[2016-07-30] MEDS: morphine 2 MG INJ IV PRN (03:11)
[2016-07-30] MEDS: PANTOPRAZOLE 40 MG INJ IV SCH (05:51)
[2016-07-30] MEDS: VANCOMYCIN 1.25 GM in SOD CHLORIDE 0.9% 250 ML IVPB SCH (05:52)
[2016-07-30] MEDS: PIPER-TAZO 3.375 GM IV (PMX) 100 ML IVPB SCH ×3 (05:52→23:35)
[2016-07-30 06:13] LABS: POTASSIUM 3.8 mmol/L (3.5-5.1)
[2016-07-30 06:16] LABS: CREATININE 0.79 mg/dl (0.61-1.24); MAGNESIUM 1.8 mg/dl (1.7-2.5); PHOSPHORUS 4.3 mg/dl (2.5-4.9)
[2016-07-30 06:17] LABS: CALCIUM 8.9 mg/dl (8.4-10.2)
[2016-07-30 06:20] LABS: BASOPHILS % 0.2 % (0.0-2.0); HEMATOCRIT 35.9 % (42.0-52.0); LYMPHOCYTES # 0.8 10^3/ul (0.8-2.9); LYMPHOCYTES % 7.7 % (15.0-51.0); MEAN CORPUSCULAR HEMOGLOBIN 28.8 pg (29.0-33.0); MEAN CORPUSCULAR HGB CONC 33.3 g/dl (32.0-37.0); MEAN CORPUSCULAR VOLUME 86.2 fl (82.0-101.0); MEAN PLATELET VOLUME 9.1 fl (7.4-10.4); MONOCYTE # 0.5 10^3/ul (0.3-0.9); MONOCYTES % 5.2 % (0.0-11.0); NEUTROPHILS % 86.9 % (39.0-77.0); PLATELET COUNT 224 10^3/UL (140-440); RED BLOOD COUNT 4.17 10^6/ul (4.70-6.10); RED CELL DISTRIBUTION WIDTH 16.1 % (11.5-14.5); UNCORRECTED WBC 10.3 10^3/ul (4.8-10.8); WHITE BLOOD COUNT 10.3 10^3/ul (4.8-10.8)
[2016-07-30 06:46] LABS: CONDITION 1; LH ANALYZER COMMENTS 1
--- NOTE | 2016-07-30 08:45 | RADRPT ---
PROCEDURE: XR Chest. CLINICAL INDICATION: Shortness of breath. TECHNIQUE: Single frontal view. COMPARISON: 07/29/2016. FINDINGS: The endotracheal tube and nasogastric tube have been removed. There is mild pulmonary edema, slight ly worse than seen previously. The lungs are otherwise clear. The heart is mildly enlarged. There is no pleural effusion. There is no pneumothorax. IMPRESSION: 1. Endotracheal tube and nasogastric tube removed. 2. Mild pulmonary edema, slightly worse than seen previously. 3. Mild cardiomegaly. RPTAT: QQ .Jasbir Castrejon MD, MD Date Time Electronically viewed and signed by .Jasbir Castrejon MD, MD on 07/30/2016 08:44 .R/
[2016-07-30 08:48] LABS: AADO2 Arterial 76.4 mmHg (7.0-24.0); Allen Test ACCEPTAB; Arterial Base Excess 2.9 mmol/L (-3.0-3); Arterial COHb 0.1 % (0.0-3.0); Arterial Fraction of Oxyhgb 95.9 % (93.0-99.0); Arterial HCO3 27.4 mmol/L (22.0-26.0); Arterial MetHb 0.3 % (0.0-1.5); MODE NASAL CANNULA
--- NOTE | 2016-07-30 08:53 | PN ---
Date/Time of Note Date/Time of Note DATE: 07/30/16 TIME: 08:48 Assessment/Plan VTE Prophylaxis VTE Prophylaxis Intervention: LMWH (Occasional severe agitation; developmental delay; critically ill) Lines/Catheters IV Catheter Type (from Nrs): Peripheral IV Urinary Cath still in place: Yes Reason Cath still needed: other (indicate) (critically ill, post-extubation.) Assessment/Plan Assessment/Plan [facility] INTERNAL MEDICINE 1. 56-year-old man admitted five days ago with acute hypercapnic respiratory failure. Known chronic obstructive pulmonary disease with acute bronchitis and possible obstructive sleep apnea. Self extubated yesterday morning. Dopplers of the lower extremities are negative. Possible aspiration pneumonia. Stable for now * Continue IV antibiotics: day 4 vancomycin, day 5 Zosyn * Duonebs * Change Solu-medrol from 40mg IV q12h to 60mg daily IV now * BiPAP if needed 2. Coronary artery disease, with h/o stent placement. Echo on 03/01/16 showed normal left ventricular systolic function, with only mild concentric left ventricular hypertrophy and an ejection fraction estimated at 65%. No significant valvular disease. * Continue outpatient regimen including Plavix. 3. Diabetes mellitus. A1c 6.4%. Neuropathy. Sugars very good, 75-144. * Continue Sliding scale insulin * Lantus 20 units SQ qAM * Continue Tradjenta * Swallowing study this morning, then plan to restart on Metformin and glimeperide if able to eat tomorrow (with adjustment of Lantus) * Stop sliding scale * Changed to PO Zofran ODT from IV 4. Old cerebrovascular accident. * Monitoring mental status 5. Hypertension, mild hypernatremia. Potassium 3.8. * Continue Lisinopril 20 mg per NG q12h * Continue Atenolol with hydralazine as needed * Topical nitropaste applied last night for hypertension; continue for now * Switch to 1/2NS + 20K at 75cc/hr 6. Major depressive and anxiety disorders. 7. Weight problem, possible obstructive sleep apnea. * May need CPAP once extubated 8. Prophylaxis: * Replaced IV Protonix with PO famotidine for gastrointestinal prophylaxis * Lovenox for deep vein thrombosis prophylaxis. 9. DISPOSITION: Discussed with Dr. Palomares. Transfer to telemetry this morning. * Patient is Full-Code Lydia Lindsay MD PhD [phone] Subjective 24 Hr Interval Summary Free Text/Dictation No pain or nausea complaints. But not hungry either. Exam/Review of Systems Vital Signs Vitals Vital Signs Date Time Temp Pulse Resp B/P Pulse Ox O2 Delivery O2 Flow Rate FiO2 07/30/16 06:00 22 145/86 96 Nasal Cannula 3.0 07/30/16 05:00 107 07/29/16 21:00 99.0 07/29/16 07:50 50 Intake and Output 07/29/16 07/29/16 07/30/16 15:00 23:00 07:00 Intake Total 1397.0 ml 317 ml 1550 ml Output Total 1410 ml 1000 ml 1020 ml Balance -13.0 ml -683 ml 530 ml Exam Constitutional: Cheerful, kissed my hand, breathing comfortably on high-flow oxygen Respiratory: Mild early expiratory wheezes throughout, no crackles, good expansion Cardiovascular: Symmetric pulses, regular rhythm, normal rate Gastrointestinal: non-tender, soft, large, no HSM Musculoskeletal: nl extremities to inspection, with excoriated areas on left calf. No peripheral edema. Neurological: [employer] II-XII intact, awake and alert, Moving all extremities. [place] indifference. Speaking somewhat clearly. Recognized me as a doctor, though we had never met. Results Result Diagram: 07/30/16 0520 07/30/16 0520 Results 24 hrs Laboratory Tests Test 07/29/16 09:35 07/29/16 13:05 07/29/16 17:07 07/29/16 17:43 Bedside Glucose 190 84 86 90 Test 07/29/16 21:23 07/30/16 00:33 07/30/16 05:20 07/30/16 05:58 Bedside Glucose 73 100 144 Anion Gap 21 #H Basophils # 0.0 Basophils % 0.2 Blood Morphology Comment Blood Urea Nitrogen 18 Calcium Level 8.9 Carbon Dioxide Level 27 Chloride Level 103 Creatinine 0.79 Eosinophils # 0.0 Eosinophils % 0.0 Glucose Level 147 # Hematocrit 35.9 L Hemoglobin 12.0 L Lymphocytes # 0.8 Lymphocytes % 7.7 L Magnesium Level 1.8 Mean Corpuscular Hemoglobin 28.8 L Mean Corpuscular Hemoglobin Concent 33.3 Mean Corpuscular Volume 86.2 Mean Platelet Volume 9.1 Monocytes # 0.5 Monocytes % 5.2 Neutrophils # 9.0 H Neutrophils % 86.9 H Nucleated Red Blood Cells # 0.0 Nucleated Red Blood Cells % 0.0 Phosphorus Level 4.3 Platelet Count 224 Potassium Level 3.8 Red Blood Count 4.17 L Red Cell Distribution Width 16.1 H Sodium Level 147 H White Blood Count 10.3 Medications Medications Current Medications Sodium Chloride (NS) 1,000 ml @ 100 mls/hr Q10H IV Last administered on 23:40; Admin Dose 100 MLS/HR; Start 07/26/16 at 15:40 Ondansetron HCl (Zofran Inj) 4 mg Q6H PRN IV NAUSEA AND/OR VOMITING; Start 05/02 at 16:00 Nitroglycerin (Nitroglycerin (Sl Tab) 0.4 Mg) 1 tab Q5M PRN SL CHEST PAIN; Start 07/26/16 at 16:00 Acetaminophen (Tylenol Liquid) 650 mg Q6H PRN PO PAIN LEVEL 1-3 OR FEVER Last administered on 07/30/16 01:07; Admin Dose 650 MG; Start 07/26/16 at 16:00 Acetaminophen (Tylenol Supp) 650 mg Q4H PRN [place] PAIN LEVEL 1-3 OR FEVER; Start 07/26/16 at 16:00 Morphine Sulfate (morphine) 2 mg Q4H PRN IV PAIN LEVEL 7-10 Last administered on 07/30/16 03:11; Admin Dose 2 MG; Start 07/26/16 at 16:00 Docusate Sodium (Colace) 100 mg Q12H PRN PO CONSTIPATION; Start 07/26/16 at 16: 00 Magnesium Hydroxide (Milk Of Mag) 30 ml DAILY PRN PO CONSTIPATION; Start at 16:00 Bisacodyl (Dulcolax Supp) 10 mg DAILY PRN [place] CONSTIPATION; Start 07/26/16 at 16 :00 Pantoprazole (Protonix Iv) 40 mg DAILY@06 IV Last administered on 07/30/16 05: 51; Admin Dose 40 MG; Start 07/27/16 at 06:00 Eye Lubricant (Artificial Tears Oph) 1 drop TID BOTH EYES Last administered on 07/29/16 21:00; Admin Dose 1 DROP; Start 07/26/16 at 21:00 Enoxaparin Sodium 40 mg 40 mg DAILY SC Last administered on 07/29/16 08:46; Admin Dose 40 MG; Start 07/27/16 at 09:00 Piperacillin Sod/ Tazobactam Sod (Zosyn 3.375gm/ 100 ml (Pmx)) 100 ml @ 200 mls /hr Q8 IVPB Last administered on 07/30/16 05:52; Admin Dose 200 MLS/HR; Start 07/26/16 at 22:00 Amitriptyline HCl (Elavil) 25 mg QHS PO Last administered on 07/29/16 21:07; Admin Dose 25 MG; Start 07/26/16 at 21:00 Atenolol (Tenormin) 50 mg DAILY PO Last administered on 07/29/16 08:44; Admin Dose 50 MG; Start 07/27/16 at 09:00 Atorvastatin Calcium (Lipitor) 20 mg HS PO Last administered on 07/29/16 21:06 ; Admin Dose 20 MG; Start 07/26/16 at 21:00 Clopidogrel Bisulfate (plaVIX) 75 mg DAILY PO Last administered on 07/29/16 08 :43; Admin Dose 75 MG; Start 07/27/16 at 09:00 Gabapentin (Neurontin) 300 mg TID PO Last administered on 07/29/16 21:06; Admin Dose 300 MG; Start 07/26/16 at 21:00 Insulin Glargine (Lantus) 20 unit DAILY SC Last administered on 07/29/16 08:47 ; Admin Dose 20 UNIT; Start 07/27/16 at 09:00 Linagliptin (Tradjenta) 5 mg DAILY PO Last administered on 07/29/16 08:44; Admin Dose 5 MG; Start 07/27/16 at 09:00 Insulin Aspart (Novolog Insulin Pen) NOVOLOG *MODERATE* ALGORI... Q4 SC Last administered on 07/30/16 06:01; Admin Dose 2 UNIT; Start 07/26/16 at 17:00 Miscellaneous Information 1 ea NOTE XX ; Start 07/26/16 at 16:00 Glucose (Glutose) 15 gm Q15M PRN PO DECREASED GLUCOSE; Start 07/26/16 at 16:00 Glucose (Glutose) 22.5 gm Q15M PRN PO DECREASED GLUCOSE; Start 07/26/16 at 16: 00 Dextrose (D50w Syringe) 25 ml Q15M PRN IV DECREASED GLUCOSE; Start 07/26/16 at 16:00 Dextrose (D50w Syringe) 50 ml Q15M PRN IV DECREASED GLUCOSE; Start 07/26/16 at 16:00 Glucagon (Glucagen) 1 mg Q15M PRN IM DECREASED GLUCOSE; Start 07/26/16 at 16:00 Glucose 15 gm 15 gm Q15M PRN BUCCAL DECREASED GLUCOSE; Start 07/26/16 at 16:00 Midazolam HCl/ Dextrose (Versed/D5W) 50 ml @ 2.3 mls/hr TITRATE IV Last administered on 07/29/16 06:14; Admin Dose 4.6 MLS/HR; Start 07/26/16 at 20:00 Vancomycin HCl (Vanco Iv Per Pharmacy) PER PHARMACY DOSING NOTE XX ; Start 07/27 at 16:30 Lisinopril (Zestril) 20 mg BID PO Last administered on 07/29/16 21:09; Admin Dose 20 MG; Start 07/28/16 at 21:00 Hydralazine HCl (Apresoline) 10 mg Q8H PRN IV ELEVATED BLOOD PRESSURE Last administered on 07/29/16 22:12; Admin Dose 10 MG; Start 07/28/16 at 09:30 Methylprednisolone Sodium Succinate 40 mg 40 mg Q12 IV Last administered on 21:19; Admin Dose 40 MG; Start 07/28/16 at 21:00 Vancomycin HCl/ Sodium Chloride (Vancocin/NS) 250 ml @ 83.333 mls/ hr Q8H IVPB Last administered on 07/30/16 05:52; Admin Dose 83.333 MLS/HR; Start at 14:00 Miscellaneous Information (*Rx Drug Level Order Reminder*) VANCO TR LEVEL PRIOR... ONCE ONCE XX ; Start 07/30/16 at 13:00; Stop 07/30/16 at 13:01 Nitroglycerin (Nitroglycerin 2% Oint) 1 inch Q6 TD Last administered on 05:53; Admin Dose 1 INCH; Start 07/30/16 at 00:00 Haloperidol (Haldol) 5 mg Q4 PRN IM agitation Last administered on 07/30/16 03 :11; Admin Dose 5 MG; Start 07/29/16 at 20:30 MEHRDAD LINDSAY M.D. Jul 30, 2016 08:52
[2016-07-30] MEDS: ARTIFICIAL TEARS 15 ML OPH BOTH EYES SCH ×3 (09:23→20:39)
[2016-07-30] MEDS: METHYLPREDNISOLONE 125 MG INJ IV SCH (09:26)
[2016-07-30] MEDS: CLOPIDOGREL 75 MG TAB PO SCH (09:27)
[2016-07-30] MEDS: LISINOPRIL 20 MG TAB PO SCH ×2 (09:28→20:40)
[2016-07-30] MEDS: GABAPENTIN 300 MG CAP PO SCH ×3 (09:28→20:37)
[2016-07-30] MEDS: LINAGLIPTIN 5 MG TABLET PO SCH (09:29)
[2016-07-30] MEDS: ATENOLOL 50 MG TAB PO SCH (09:29)
[2016-07-30] MEDS ORDERED: ONDANSETRON (ODT) 4 MG TAB ODT PRN (09:30)
[2016-07-30] MEDS: FAMOTIDINE 20 MG TAB PO SCH ×2 (09:30→20:37)
[2016-07-30] MEDS: ENOXAPARIN 40 MG/0.4 ML SYG SC SCH (09:33)
[2016-07-30] MEDS: INSULIN GLARGINE [LANtus] 3 ML PEN SC SCH (09:36)
--- NOTE | 2016-07-30 10:00 | CONS ---
Date/Time of Note Date/Time of Note DATE: 07/30/16 TIME: 09:57 Consult Date/Type/Reason Admit Date/Time Jul 27, 2016 at 15:45 Type of Consultation: pulmonary Subjective Patient extubated yesterday Awake alert oriented Appears confused but at baseline mental status Currently hemodynamically stable Moderate oral secretions Objective Vital Signs Date Time Temp Pulse Resp B/P Pulse Ox O2 Delivery O2 Flow Rate FiO2 07/30/16 08:00 97 07/30/16 06:00 22 145/86 96 Nasal Cannula 3.0 07/29/16 21:00 99.0 07/29/16 07:50 50 Intake and Output 07/29/16 07/29/16 07/30/16 15:00 23:00 07:00 Intake Total 1397.0 ml 317 ml 1550 ml Output Total 1410 ml 1000 ml 1020 ml Balance -13.0 ml -683 ml 530 ml PHYSICAL EXAMINATION: GENERAL: Morbidly obese gentleman, appears comfortable no acute distress VITAL SIGNS: As above NECK: Supple. No JVD or lymphadenopathy. CARDIAC: S1, S2. No added sounds or murmurs. CHEST: Diminished air entry bilaterally with rales. ABDOMEN: Soft, nontender. No guarding or rebound. EXTREMITIES: No cyanosis, clubbing. 1+ edema. NEUROLOGIC: Unable to assess. Results/Medications Result Diagram: 07/30/16 0520 07/30/16 0520 Results 24 hrs Laboratory Tests Test 07/29/16 13:05 07/29/16 17:07 07/29/16 17:43 07/29/16 21:23 Bedside Glucose 84 86 90 73 Test 07/30/16 00:33 07/30/16 05:20 07/30/16 05:58 07/30/16 07:00 Bedside Glucose 100 144 Anion Gap 21 #H Basophils # 0.0 Basophils % 0.2 Blood Morphology Comment Blood Urea Nitrogen 18 Calcium Level 8.9 Carbon Dioxide Level 27 Chloride Level 103 Creatinine 0.79 Eosinophils # 0.0 Eosinophils % 0.0 Glucose Level 147 # Hematocrit 35.9 L Hemoglobin 12.0 L Lymphocytes # 0.8 Lymphocytes % 7.7 L Magnesium Level 1.8 Mean Corpuscular Hemoglobin 28.8 L Mean Corpuscular Hemoglobin Concent 33.3 Mean Corpuscular Volume 86.2 Mean Platelet Volume 9.1 Monocytes # 0.5 Monocytes % 5.2 Neutrophils # 9.0 H Neutrophils % 86.9 H Nucleated Red Blood Cells # 0.0 Nucleated Red Blood Cells % 0.0 Phosphorus Level 4.3 Platelet Count 224 Potassium Level 3.8 Red Blood Count 4.17 L Red Cell Distribution Width 16.1 H Sodium Level 147 H White Blood Count 10.3 Arterial Blood HCO3 27.4 H Arterial Blood Base Excess 2.9 Arterial Blood Oxygen Saturation 96.3 Trell Test ACCEPTAB Arterial Blood Gas Puncture Site Right Radial Arterial Blood Carboxyhemoglobin 0.1 Arterial Blood Date Drawn 07/30/2016 8:30:41 AM Arterial Blood Methemoglobin 0.3 Arterial Blood pCO2 (Temp correct) 41.7 Arterial Blood pH (Temp corrected) 7.435 Arterial Blood pO2 (Temp corrected) 88.5 Blood Gas A-a O2 Differential 76.4 H Blood Gas Modality NASAL CANNULA Blood Gas Notified Time 07/30/2016 8:48:09 AM Blood Gas Notified Whom DT Blood Gas Specimen Source Blood arterial Blood Gas Temperature 37.0 FiO2 30.0 Oxyhemoglobin Percent 95.9 Total Hemoglobin 13.0 Test 07/30/16 09:17 Bedside Glucose 108 Medications Current Medications Ondansetron HCl (Zofran Inj) 4 mg Q6H PRN IV NAUSEA AND/OR VOMITING; Start 05/02 at 16:00 Nitroglycerin (Nitroglycerin (Sl Tab) 0.4 Mg) 1 tab Q5M PRN SL CHEST PAIN; Start 07/26/16 at 16:00 Acetaminophen (Tylenol Liquid) 650 mg Q6H PRN PO PAIN LEVEL 1-3 OR FEVER Last administered on 07/30/16 01:07; Admin Dose 650 MG; Start 07/26/16 at 16:00 Acetaminophen (Tylenol Supp) 650 mg Q4H PRN [place] PAIN LEVEL 1-3 OR FEVER; Start 07/26/16 at 16:00 Morphine Sulfate (morphine) 2 mg Q4H PRN IV PAIN LEVEL 7-10 Last administered on 07/30/16 03:11; Admin Dose 2 MG; Start 07/26/16 at 16:00 Docusate Sodium (Colace) 100 mg Q12H PRN PO CONSTIPATION; Start 07/26/16 at 16: 00 Magnesium Hydroxide (Milk Of Mag) 30 ml DAILY PRN PO CONSTIPATION; Start at 16:00 Bisacodyl (Dulcolax Supp) 10 mg DAILY PRN [place] CONSTIPATION; Start 07/26/16 at 16 :00 Eye Lubricant (Artificial Tears Oph) 1 drop TID BOTH EYES Last administered on 07/30/16 09:23; Admin Dose 1 DROP; Start 07/26/16 at 21:00 Enoxaparin Sodium 40 mg 40 mg DAILY SC Last administered on 07/30/16 09:33; Admin Dose 40 MG; Start 07/27/16 at 09:00 Piperacillin Sod/ Tazobactam Sod (Zosyn 3.375gm/ 100 ml (Pmx)) 100 ml @ 200 mls /hr Q8 IVPB Last administered on 07/30/16 05:52; Admin Dose 200 MLS/HR; Start 07/26/16 at 22:00 Amitriptyline HCl (Elavil) 25 mg QHS PO Last administered on 07/29/16 21:07; Admin Dose 25 MG; Start 07/26/16 at 21:00 Atenolol (Tenormin) 50 mg DAILY PO Last administered on 07/30/16 09:29; Admin Dose 50 MG; Start 07/27/16 at 09:00 Atorvastatin Calcium (Lipitor) 20 mg HS PO Last administered on 07/29/16 21:06 ; Admin Dose 20 MG; Start 07/26/16 at 21:00 Clopidogrel Bisulfate (plaVIX) 75 mg DAILY PO Last administered on 07/30/16 09 :27; Admin Dose 75 MG; Start 07/27/16 at 09:00 Gabapentin (Neurontin) 300 mg TID PO Last administered on 07/30/16 09:28; Admin Dose 300 MG; Start 07/26/16 at 21:00 Insulin Glargine (Lantus) 20 unit DAILY SC Last administered on 07/30/16 09:36 ; Admin Dose 20 UNIT; Start 07/27/16 at 09:00 Linagliptin (Tradjenta) 5 mg DAILY PO Last administered on 07/30/16 09:29; Admin Dose 5 MG; Start 07/27/16 at 09:00 Insulin Aspart (Novolog Insulin Pen) NOVOLOG *MODERATE* ALGORI... Q4 SC Last administered on 07/30/16 06:01; Admin Dose 2 UNIT; Start 07/26/16 at 17:00 Miscellaneous Information 1 ea NOTE XX ; Start 07/26/16 at 16:00 Glucose (Glutose) 15 gm Q15M PRN PO DECREASED GLUCOSE; Start 07/26/16 at 16:00 Glucose (Glutose) 22.5 gm Q15M PRN PO DECREASED GLUCOSE; Start 07/26/16 at 16: 00 Dextrose (D50w Syringe) 25 ml Q15M PRN IV DECREASED GLUCOSE; Start 07/26/16 at 16:00 Dextrose (D50w Syringe) 50 ml Q15M PRN IV DECREASED GLUCOSE; Start 07/26/16 at 16:00 Glucagon (Glucagen) 1 mg Q15M PRN IM DECREASED GLUCOSE; Start 07/26/16 at 16:00 Glucose 15 gm 15 gm Q15M PRN BUCCAL DECREASED GLUCOSE; Start 07/26/16 at 16:00 Midazolam HCl/ Dextrose (Versed/D5W) 50 ml @ 2.3 mls/hr TITRATE IV Last administered on 07/29/16 06:14; Admin Dose 4.6 MLS/HR; Start 07/26/16 at 20:00 Vancomycin HCl (Vanco Iv Per Pharmacy) PER PHARMACY DOSING NOTE XX ; Start 07/27 at 16:30 Lisinopril (Zestril) 20 mg BID PO Last administered on 07/30/16 09:28; Admin Dose 20 MG; Start 07/28/16 at 21:00 Hydralazine HCl 10 mg 10 mg Q8H PRN IV ELEVATED BLOOD PRESSURE Last administered on 07/29/16 22:12; Admin Dose 10 MG; Start 07/28/16 at 09:30 Vancomycin HCl/ Sodium Chloride (Vancocin/NS) 250 ml @ 83.333 mls/ hr Q8H IVPB Last administered on 07/30/16 05:52; Admin Dose 83.333 MLS/HR; Start at 14:00 Miscellaneous Information (*Rx Drug Level Order Reminder*) VANCO TR LEVEL PRIOR... ONCE ONCE XX ; Start 07/30/16 at 13:00; Stop 07/30/16 at 13:01 Nitroglycerin (Nitroglycerin 2% Oint) 1 inch Q6 TD Last administered on 05:53; Admin Dose 1 INCH; Start 07/30/16 at 00:00 Haloperidol (Haldol) 5 mg Q4 PRN IM agitation Last administered on 07/30/16 03 :11; Admin Dose 5 MG; Start 07/29/16 at 20:30 Methylprednisolone Sodium Succinate 60 mg 60 mg DAILY IV Last administered on 09:26; Admin Dose 60 MG; Start 07/30/16 at 09:00 Potassium Chloride/Sodium Chloride (1/2 NS + KCl 20 Meq) 1,000 ml @ 75 mls/hr [id number] IV ; Start 07/30/16 at 10:30 Famotidine (Pepcid) 20 mg BID PO ; Start 07/30/16 at 09:30 Ondansetron HCl (Zofran Odt) 4 mg Q6H PRN ODT nausea; Start 07/30/16 at 09:30 Assessment/Plan Chief Complaint/Hosp Course Assessment 1. Status post Hypoxemic respiratory failure 2. congestive cardiac failure 3. Probable obstructive sleep apnea 4. Morbid obesity 5. Diabetes mellitus The patient will require: 1. Continue noninvasive positive pressure ventilation, pulmonary toilet, supplemental O2 2. Broad spectrum antibiotics. Consider de-escalation of antibiotics soon 3. Bronchodilators. 4. Steroid taper. 5. DVT and GI prophylaxis. 6. Speech therapy recommendations Disposition Patient stable to transfer to telemetry floor Problems: RAYMUNDO BARAKAT MD, [facility] Jul 30, 2016 10:00
[2016-07-30] MEDS: 1/2 NS + KCL 20 MEQ 1,000 ML IV SCH ×2 (11:09→23:50)
[2016-07-30] MEDS ORDERED: VANCOMYCIN 1.75 GM in NS 500 ML IVPB SCH (17:00)
[2016-07-30] MEDS: AMITRIPTYLINE 25 MG TAB PO SCH (20:39)
[2016-07-30] MEDS: ATORVASTATIN 20 MG TAB PO SCH (20:39)
[2016-07-30] MEDS ORDERED: VANCOMYCIN 1.25 GM in SOD CHLORIDE 0.9% 250 ML IVPB SCH (23:30)
[2016-07-31] VITALS (12 sets, daily range): BP systolic 134–164; BP diastolic 63–78; PULSE 72–91; RESP 16–20
[2016-07-31] MEDS: ALBUTEROL/IPRATROPIUM (NEB) 3 ML AMP HHN SCH ×6 (00:59→21:04)
[2016-07-31] MEDS: NITROGLYCERIN 2% 1 GM OINT PKT TD SCH ×4 (01:24→20:19)
[2016-07-31] MEDS: hydrALAzine 20 MG INJ IV PRN (01:35)
[2016-07-31] MEDS ORDERED: VANCOMYCIN 1.75 GM in NS 500 ML IVPB SCH (05:00)
[2016-07-31] MEDS: morphine 2 MG INJ IV PRN ×3 (05:33→16:29)
[2016-07-31] MEDS: PIPER-TAZO 3.375 GM IV (PMX) 100 ML IVPB SCH (06:23)
[2016-07-31] MEDS: FAMOTIDINE 20 MG TAB PO SCH ×2 (10:10→21:26)
[2016-07-31] MEDS: LISINOPRIL 20 MG TAB PO SCH ×2 (10:10→21:26)
[2016-07-31] MEDS: METHYLPREDNISOLONE 125 MG INJ IV SCH (10:10)
[2016-07-31] MEDS: CLOPIDOGREL 75 MG TAB PO SCH (10:11)
[2016-07-31] MEDS: ATENOLOL 50 MG TAB PO SCH (10:11)
[2016-07-31] MEDS: LINAGLIPTIN 5 MG TABLET PO SCH (10:11)
[2016-07-31] MEDS: GABAPENTIN 300 MG CAP PO SCH ×3 (10:11→21:26)
[2016-07-31] MEDS: INSULIN GLARGINE [LANtus] 3 ML PEN SC SCH (10:15)
[2016-07-31] MEDS: ENOXAPARIN 40 MG/0.4 ML SYG SC SCH (10:19)
--- NOTE | 2016-07-31 12:54 | PDOCDIS ---
Discharge Instructions DIAGNOSIS Discharge Diagnosis: Pneumonia, respiratory failure CONDITION Patient Condition: Good HOME CARE INSTRUCTIONS: Your diet recommendation is: Consistent carbohydrate, 2g sodium ACTIVITY: Activity Restrictions: Slowly Increase Activity Bathing Restrictions: Sponge Bath FOLLOW UP/APPOINTMENTS Appointments Dr. Mert Palomares and Dr. Stalin Gupta (PCP) in the next week MEHRDAD GALEANO M.D. Jul 31, 2016 12:54
[2016-07-31] MEDS ORDERED: BISACODYL 10 MG SUPP PR ONE (13:00)
--- NOTE | 2016-07-31 13:01 | DS ---
Date/Time of Note Date/Time of Note DATE: 07/31/16 TIME: 13:00 Discharge Summary Admission/Discharge Info Admit Date/Time Jul 27, 2016 at 15:45 Discharge Date/Time Jul 31, 2016 Final Diagnosis Hypercarbic respiratory failure, aspiration pneumonia Patient Condition: Good Consults Mert Palomares MD (pulmonary) Procedures Lower extremity Doppler; multiple chest x-rays Hx of Present Illness 56-year-old patient of Dr. Stalin Gupta with a history of hypertension, hyperlipidemia, diabetes mellitus, COPD, coronary artery disease and chronic left lower extremity radiculopathy who presented 07/26/16 to the [facility] emergency department from his primary care physician's office with severe respiratory distress. He was in severe respiratory distress there and suffered an episode of syncope. ALLERGIES: NO KNOWN ALLERGIES. PAST MEDICAL HISTORY: 1. Coronary artery disease, status post stenting and old myocardial infarction. 2. COPD with chronic hypoxemia. 3. Diabetes mellitus. 4. Diabetic neuropathy. 5. Hyperlipidemia. 6. Glaucoma. 7. Hypertension. 8. Chronic cerebellar infarcts bilaterally. 9. 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 10. Chronic left lower extremity pain secondary to radiculopathy and peripheral neuropathy. 11. Likely obstructive sleep apnea. 12. Morbid obesity. PAST SURGICAL HISTORY: 1. Status post angiogram in the past. 2. Status post hernia repair. Hospital Course In the emergency department, he was severely hypoxemic and agitated with O2 sats in the 70s. His ABG showed CO2 retention with pH of 7.1. He was intubated emergently, with normalization of his ABG. Lab studies significant for a white blood cell count of 15.9 k/ul, hemoglobin of 14.1 g/dl, hematocrit 41.7%, platelet count of 317k/ul. Chemistries showed sodium of 143, potassium 5.1, chloride 97, bicarbonate 29, BUN 21, creatinine 0.83, glucose of 185, lactic acid 6.0, calcium 8.8, total bilirubin 0.4, AST 32, ALT 28, alkaline phosphatase of 84. Troponin 0.011. Total protein 8.1. INR 0.90, PT 12.1, PTT 31.4. Urinalysis is negative. EKG showed normal sinus rhythm. No acute ST or T -wave abnormalities. There was concern for aspiration pneumonia and he was started on Zosyn and vancomycin. CXR showed no effusion or infiltrates, with only mild cardiomegaly. Doppler studies of both legs negative for DVT. Blood cultures were negative throughout. He received high-dose Solu-medrol with Duoneb therapy. Two days ago he pulled out his endotracheal tube, and did well post-extubation. Yesterday he was transferred to telemetry, and has been breathing comfortably on oxygen per nasal cannula. He has agitated at times, requiring IM Haldol. Today he felt quite well, complaining only of some leg discomfort and not having had a bowel movement for several days. No chest pain, dyspnea, or nausea. GENERAL: He was comfortable, smiling, very engaging. HEENT: Pupils were normal. Extraocular muscles are intact. Anicteric sclerae. NECK: No JVD, no thyromegaly noted. However, the patient does have a thick neck and likely obstructive sleep apnea. HEART: Regular rate and rhythm. No murmur, rubs or gallops. LUNGS: Clear to auscultation bilaterally actually with good air movement while on the vent. ABDOMEN: Obese. Bowel sounds are present. Soft. EXTREMITIES: No edema, clubbing or cyanosis. NEUROLOGIC: Alert, disoriented, but intact cranial nerves, motor and light touch sensation. He will be discharged back to [facility] on Keflex for 7 days BID, improved bowel toilet (dulcolax suppository + Miralax), probiotic, and steroid taper. Home Meds Active Scripts Prednisone (Prednisone) 10 Mg Tab, 10 MG PO QAM, #15 TAB 0 Refills Taper beginning with 5 tabs (50mg) tomorrow AM, dropping by 1 pill each morning until discontinued in five days. Prov:MEHRDAD GALEANO M.D. 07/31/16 Acidophilus-Bulgaricus* (BD Lactinex*) 1 Pkt Packet, 1 PKT PO DAILY for 14 Days , PACKET Prov:MEHRDAD GALEANO M.D. 07/31/16 Cephalexin* (Cephalexin*) 500 Mg Capsule, 500 MG PO Q12 for 7 Days, #14 CAP Prov:MEHRDAD GALEANO M.D. 07/31/16 Psyllium Husk-Aspartame (Metamucil Fiber Singles Packet) 3.4 Gm Powd.pack, 1 PKT PO DAILY for 14 Days Prov:MEHRDAD GALEANO M.D. 07/31/16 Acetaminophen* (Tylophen*) 500 Mg Capsule, 1 CAP PO Q6H Y for PAIN AND OR ELEVATED TEMP, #20 CAP Prov:NAIF BLAIR PA-C 07/01/16 Albuterol Sulfate* (Proair HFA*) 8.5 Gm Hfa.aer.ad, 2 PUFF INH Q4, #1 INHALER Prov:PARKER WEI PA-C 06/21/16 Ibuprofen* (Motrin*) 600 Mg Tab, 600 MG PO Q6H Y for PAIN AND OR ELEVATED TEMP, #15 TAB Prov:ABE MOORE MD 06/16/16 Sitagliptin* (Januvia*) 100 Mg Tab, 100 MG PO DAILY for 30 Days Prov:LISSY GONZALEZ 02/04/15 Reported Medications Insulin Glargine* (Lantus*) 100 Unit/Ml Soln, 20 UNIT SC DAILY, #1 VIAL 06/10/16 Tramadol Hcl* (Ultram*) 50 Mg Tablet, 50 MG PO TID Y for PAIN, TAB 03/30/16 Gabapentin* (Gabapentin*) 300 Mg Capsule, 300 MG PO TID, #90 CAP 03/16/16 Amitriptyline Hcl* (Amitriptyline Hcl*) 25 Mg Tablet, 25 MG PO QHS, #30 TAB 03/16/16 Clopidogrel Bisulfate (Clopidogrel) 75 Mg Tablet, 75 MG PO DAILY, #30 TAB 12/22/15 Zolpidem Tartrate* (Zolpidem Tartrate*) 10 Mg Tablet, 10 MG PO QHS Y for INSOMNIA, #30 TAB 12/22/15 Glimepiride* (Amaryl*) 1 Mg Tablet, 1 MG PO WITH BREAKFAST, TAB 03/19/15 Metformin Hcl* (Metformin Hcl*) 1,000 Mg Tablet, 1000 MG PO BID WITH MEALS, TAB 03/19/15 Atorvastatin Calcium* (Atorvastatin Calcium*) 20 Mg Tablet, 20 MG PO HS, TAB 03/19/15 Lisinopril* (Lisinopril*) 20 Mg Tablet, 20 MG PO DAILY, TAB 09/29/14 Atenolol* (Atenolol*) 50 Mg Tablet, 50 MG PO DAILY, TAB 09/29/14 Discontinued Reported Medications Omeprazole* (Omeprazole*) 20 Mg Capsule., 20 MG PO DAILY, #30 CAP 12/22/15 Discontinued Scripts Tramadol HCl (Tramadol HCl) 50 Mg Tablet, 50 MG PO Q6, #20 TAB Prov:YAIR TEJEDAPearl CAVAZOS 07/17/16 Sodium Polystyrene Sulfonate* (Kayexalate*) 15 Gm/60 Ml Susp, 30 GM PO ONCE, #2 ML Prov:EDGARYEMIMERLE CAVAZOS 06/10/16 Follow-up Plan Dr. Mert Palomares and Dr. Stalin Gupta (PCP) in the next week Pending Labs Laboratory Tests Test 07/30/16 13:30 07/30/16 17:22 07/30/16 20:34 07/31/16 08:12 Bedside Glucose 138mg/dL (70-220) 141mg/dL (70-220) 108mg/dL (70-220) 121mg/dL (70-220) Vancomycin Level Trough 17.7ug/ml (10.0-20.0) Copies To: CC: MANUEL KIDD; [facility]ARES [facility], [facility] MEHRDAD GALEANO M.D. Jul 31, 2016 13:01
[2016-07-31] MEDS ORDERED: PSYL3.4P5 PO (13:21)
[2016-07-31] MEDS ORDERED: CEPH500C PO (13:21)
[2016-07-31] MEDS ORDERED: LACTINEXG PO (13:21)
[2016-07-31] MEDS ORDERED: PRED10TA PO (13:25)
[2016-07-31] MEDS: ARTIFICIAL TEARS 15 ML OPH BOTH EYES SCH ×3 (13:41→21:26)
--- NOTE | 2016-07-31 13:59 | RADRPT ---
PROCEDURE: XR Chest. CLINICAL INDICATION: Shortness of breath. TECHNIQUE: Single frontal view. COMPARISON: 07/30/2016. FINDINGS: There is mild pulmonary edema, slightly improved. The lungs are otherwise clear. The heart is mildly enlarged. There is no pleural effusion. There is no pneumothorax. IMPRESSION: 1. Mild pulmonary edema, slightly improved. 2. No other change from 07/30/2016. RPTAT: QQ .Jasbir Castrejon MD, MD Date Time Electronically viewed and signed by .Jasbir Castrejon MD, MD on 07/31/2016 13:59 .R/
[2016-07-31] MEDS: HALOPERIDOL 5 MG INJ IM PRN (14:08)
[2016-07-31] MEDS ORDERED: PSYLLIUM (SUGAR FREE) PACKET PO SCH (14:30)
--- NOTE | 2016-07-31 17:29 | PN ---
DATE: 07/31/2016 SUBJECTIVE: The patient with pneumonia. Remained stable overnight. No new events. PHYSICAL EXAMINATION: VITAL SIGNS: Temperature 98, pulse 83, blood pressure 134/78, O2 saturation 96% on 3 L nasal cannul a. NECK: Supple. No JVD or lymphadenopathy. CARDIAC: S1, S2. No added sounds or murmurs. CHEST: Diminished air entry bilaterally. ABDOMEN: Soft, nontender. No guarding or rebound. EXTREMITIES: No cyanosis, clubbing, edema. NEUROLOGIC: Grossly intact. No focal deficits. LABORATORY DATA: White count 9.3, hemoglobin 12. Chemistry pending at time of this dictation. IMPRESSION AND PLAN: 1. Status post respiratory failure. 2. Pulmonary edema. 3. Obstructive sleep apnea. 4. Morbid obesity. 5. Learning disability. PLAN: 1. Continue supplemental O2. 2. Continue aspiration precautions. 3. Nocturnal noninvasive positive pressure ventilation. 4. DVT and GI prophylaxis. Dictated By: RAYMUNDO BARAKAT MD SV/DARRELL Conf#: [id number] DID#: [id number] CC: MANUEL KIDD MD;*EndCC*
[2016-07-31] MEDS ORDERED: metFORMIN 500 MG TAB PO SCH (17:55)
[2016-07-31] MEDS: ATORVASTATIN 20 MG TAB PO SCH (21:26)
[2016-07-31] MEDS: AMITRIPTYLINE 25 MG TAB PO SCH (21:32)
== END 2016-07-31 23:20 | DRG 208 ==
LOC: E/R 12:45 → ICU 07-27 15:45 → TEL 07-30 21:33
PROVIDERS: ADMIT Internal Medicine; ATTEND Internal Medicine
PROC: 5A1945Z Respiratory Ventilation, 24-96 Consecutive Hours (ICD-10-PCS; principal; 2016-07-27)
PROC: 0BH17EZ Insertion of Endotracheal Airway into Trachea, Via Natural or Artificial Opening (ICD-10-PCS; 2016-07-27)
PROC: 0B21XEZ Change Endotracheal Airway in Trachea, External Approach (ICD-10-PCS; 2016-07-27)
DX: J69.0 Pneumonitis due to inhalation of food and vomit (principal); J96.01 Acute respiratory failure with hypoxia; J96.02 Acute respiratory failure with hypercapnia; J44.1 Chronic obstructive pulmonary disease with (acute) exacerbation; Z68.41 Body mass index [BMI] 40.0-44.9, adult; E11.42 Type 2 diabetes mellitus with diabetic polyneuropathy; I10 Essential (primary) hypertension; E78.5 Hyperlipidemia, unspecified; I25.10 Atherosclerotic heart disease of native coronary artery without angina pectoris; M54.10 Radiculopathy, site unspecified; E66.01 Morbid (severe) obesity due to excess calories; I25.2 Old myocardial infarction; F32.9 Major depressive disorder, single episode, unspecified; G47.33 Obstructive sleep apnea (adult) (pediatric); F81.9 Developmental disorder of scholastic skills, unspecified; Z95.5 Presence of coronary angioplasty implant and graft; Z86.73 Personal history of transient ischemic attack (TIA), and cerebral infarction without residual deficits
CPT/HCPCS: 31500; 36415; 36600; 71010; 80048; 80053; 80202; 81001; 81003; 82550; 82553; 82803; 82962; 83036; 83605; 83735; 84100; 84439; 84443; 84484; 85025; 85610; 85730; 87040; 87086; 92610; 93005; 93965; 94002; 94003; 94640; 94664; 94770; 96365; 96372; 96375; 96376; C9113; J0330; J0360; J1630; J1650; J1815; J2060; J2270; J2543; J2920; J2930; J3370; J3480; J7030; J7040; J7050

== ENCOUNTER 2016-08-29 05:02 | Emergency (ER) | payer OTHER ==
[~2016-08-29] VITALS: Wt 107.5 kg
[~2016-08-29 05:02] MED LIST changes: +CEPH500C PO; +LACTINEXG PO; -METF-388 PO; +METF1000 PO; -OMEP20CA16 PO; +PRED10TA PO; +PSYL3.4P5 PO; -SODI15OR8 PO; -ULT50 PO
[2016-08-29 05:13] VITALS: Wt 107.5 kg
[2016-08-29] MEDS ORDERED: CIPR500T4 PO (06:54)
[2016-08-29] MEDS ORDERED: LORAZEPAM 1 MG TAB PO ONE (07:00)
[2016-08-29 07:20] VITALS: BP 144/79; PULSE 95; RESP 18
--- NOTE | 2016-08-29 07:25 | ERD ---
ER Documentation Chief Complaint Date/Time DATE: 08/29/16 TIME: 07:21 Chief Complaint states unable to urinate since yesterday HPI Patient is a 56-year-old male who presents with urinary retention. Please note the history and physical exam is limited secondary to the patient's mental status at baseline. The patient started with urinary retention today. He has no fevers. He complains of pain all over but this is his normal presentation as he is well-known to our staff and myself for multiple visits to the ER. Upon review of old medical records he has multiple visits for various pain complaints. ROS All systems reviewed and are negative except as per history of present illness. Medications Home Meds Active Scripts Ciprofloxacin Hcl* (Ciprofloxacin Hcl*) 500 Mg Tablet, 500 MG PO BID for 7 Days , TAB Prov:RAHEEM KENDALL MD 08/29/16 Prednisone (Prednisone) 10 Mg Tab, 10 MG PO QAM, #15 TAB 0 Refills Taper beginning with 5 tabs (50mg) tomorrow AM, dropping by 1 pill each morning until discontinued in five days. Prov:MEHRDAD GALEANO M.D. 07/31/16 Acidophilus-Bulgaricus* (BD Lactinex*) 1 Pkt Packet, 1 PKT PO DAILY for 14 Days , PACKET Prov:MEHRDAD GALEANO M.D. 07/31/16 Cephalexin* (Cephalexin*) 500 Mg Capsule, 500 MG PO Q12 for 7 Days, #14 CAP Prov:MEHRDAD GALEANO M.D. 07/31/16 Psyllium Husk-Aspartame (Metamucil Fiber Singles Packet) 3.4 Gm Powd.pack, 1 PKT PO DAILY for 14 Days Prov:MEHRDAD GALEANO M.D. 07/31/16 Acetaminophen* (Tylophen*) 500 Mg Capsule, 1 CAP PO Q6H Y for PAIN AND OR ELEVATED TEMP, #20 CAP Prov:NAIF BLAIR PA-C 07/01/16 Albuterol Sulfate* (Proair HFA*) 8.5 Gm Hfa.aer.ad, 2 PUFF INH Q4, #1 INHALER Prov:PARKER WEI PA-C 06/21/16 Ibuprofen* (Motrin*) 600 Mg Tab, 600 MG PO Q6H Y for PAIN AND OR ELEVATED TEMP, #15 TAB Prov:ABE MOORE MD 06/16/16 Sitagliptin* (Januvia*) 100 Mg Tab, 100 MG PO DAILY for 30 Days Prov:LISSY GONZALEZ 02/04/15 Reported Medications Insulin Glargine* (Lantus*) 100 Unit/Ml Soln, 20 UNIT SC DAILY, #1 VIAL 06/10/16 Tramadol Hcl* (Ultram*) 50 Mg Tablet, 50 MG PO TID Y for PAIN, TAB 03/30/16 Gabapentin* (Gabapentin*) 300 Mg Capsule, 300 MG PO TID, #90 CAP 03/16/16 Amitriptyline Hcl* (Amitriptyline Hcl*) 25 Mg Tablet, 25 MG PO QHS, #30 TAB 03/16/16 Clopidogrel Bisulfate (Clopidogrel) 75 Mg Tablet, 75 MG PO DAILY, #30 TAB 12/22/15 Zolpidem Tartrate* (Zolpidem Tartrate*) 10 Mg Tablet, 10 MG PO QHS Y for INSOMNIA, #30 TAB 12/22/15 Glimepiride* (Amaryl*) 1 Mg Tablet, 1 MG PO WITH BREAKFAST, TAB 03/19/15 Metformin Hcl* (Metformin Hcl*) 1,000 Mg Tablet, 1000 MG PO BID WITH MEALS, TAB 03/19/15 Atorvastatin Calcium* (Atorvastatin Calcium*) 20 Mg Tablet, 20 MG PO HS, TAB 03/19/15 Lisinopril* (Lisinopril*) 20 Mg Tablet, 20 MG PO DAILY, TAB 09/29/14 Atenolol* (Atenolol*) 50 Mg Tablet, 50 MG PO DAILY, TAB 09/29/14 Allergies Allergies: Coded Allergies: No Known Allergy (Unverified , 08/29/16) BECAUSE THE PATIENT ON DIALYSIS HE HAS CATHY ADVERSE REACTION TO BACTRIM,IBUPROFEN BUT HE CAN TAKE ASPIRIN PMhx/Soc History of Surgery: Yes (Cardiac stents) Anesthesia Reaction: No Hx Respiratory Disorders: Yes (resp failure, likely 2/2 smoking, asthma, bronchitis) Hx Cardiac Disorders: Yes (cad, htn) Hx Miscellaneous Medical Probl: Yes (DAXA, GLAUCOMA, MORBID OBESITY) Hx Alcohol Use: Yes Hx Substance Use: Yes Hx Tobacco Use: Yes (2 ppd) Smoking Status: Current every day smoker FmHx Family History: No diabetes Physical Exam Vitals Vital Signs Date Time Temp Pulse Resp B/P Pulse Ox O2 Delivery O2 Flow Rate FiO2 08/29/16 05:13 98.8 108 20 147/83 93 Physical Exam Const: Mild distress Head: Atraumatic Eyes: Normal Conjunctiva ENT: Normal External Ears, Nose and Mouth. Neck: Full range of motion..~ No meningismus. Resp: Clear to auscultation bilaterally Cardio: Regular rate and rhythm, no murmurs Abd: Soft, distended bladder Skin: No petechiae or rashes Back: No midline or flank tenderness Ext: No cyanosis, or edema Neur: Awake and alert Psych: Normal Mood and Affect Results 24 hrs Current Medications Medications (Trade) Dose Ordered Sig/Stephanie Route PRN Reason Start Time Stop Time Status Last Admin Dose Admin Lorazepam (Ativan) 1 mg ONCE ONCE PO 08/29/16 07:00 08/29/16 07:01 DC 08/29/16 06:54 Procedures/MDM Patient is a 56-year-old male who presents with urinary retention. A Scherer catheter was placed. Urine culture is pending. I believe outpatient management is appropriate this time and the patient feels better. Patient will be given a prescription for Cipro to prevent infection. The patient can return sooner for any worsening symptoms. He will need to follow-up with urology within 3 days for removal of the catheter. Departure Diagnosis: Primary Impression: Retention of urine Condition: Fair Patient Instructions: Urinary Retention, Male Referrals: Your doctor MODE DREW MD Additional Instructions: SPECIALIST: YOU HAVE A MEDICAL CONDITION WHICH REQUIRES YOU TO SEE A SPECIALIST WITHIN THE NEXT 1-2 DAYS. PLEASE FOLLOW UP WITH YOUR PRIMARY PHYSICIAN FOR REFFERAL.IF YOU DO NOT HAVE A PRIMARY CARE PHYSICIAN AND/OR YOU CAN NOT AFFORD TO SEE A PHYSICIAN THE FOLLOWING RESOURCES HAVE BEEN SUPPLIED TO YOU. IT IS YOUR RESPONSIBILITY TO BE SEEN BY THE SPECIALIST RAHEEM KENDALL MD Aug 29, 2016 07:25
[2016-08-29] MEDS ORDERED: POLY17PO6 PO (23:22)
[2016-08-29] MEDS ORDERED: SENN-53 PO (23:22)
== END 2016-08-29 07:23 | disposition home or self-care (01) ==
LOC: FTE 05:02 → E/R 07:23
DX: R33.9 Retention of urine, unspecified (principal); E11.9 Type 2 diabetes mellitus without complications; F17.210 Nicotine dependence, cigarettes, uncomplicated; J45.909 Unspecified asthma, uncomplicated; I10 Essential (primary) hypertension; I25.10 Atherosclerotic heart disease of native coronary artery without angina pectoris; E66.01 Morbid (severe) obesity due to excess calories; Z79.84 Long term (current) use of oral hypoglycemic drugs; Z79.4 Long term (current) use of insulin; Z95.5 Presence of coronary angioplasty implant and graft; Z99.2 Dependence on renal dialysis
CPT/HCPCS: 51702; 87086; Z7502; Z7610

== ENCOUNTER 2016-08-29 17:25 | Emergency (ER) | payer OTHER ==
[~2016-08-29] VITALS: Ht 167.6 cm; Wt 120.0 kg
[~2016-08-29 17:25] MED LIST changes: +CIPR500T4 PO
[2016-08-29 18:01] VITALS: Ht 167.6 cm; Wt 120.0 kg
--- NOTE | 2016-08-29 18:49 | ERA ---
ER Documentation Chief Complaint Date/Time DATE: 08/29/16 TIME: 18:49 Chief Complaint R90,back pain & urine problem, pt didn't fill rx given this am HPI 56-year-old male with history of diabetes, hypertension, dyslipidemia, CVA, coronary artery disease status post PCI, obstructive sleep apnea, morbid obesity was seen earlier today for urinary retention had a Scherer placed now returns to the ER complaining of moderate, sharp, nonradiating left greater than right flank pain and pain from the Scherer catheter. Denies chest pain or palpitations. No shortness of breath or cough. Denies abdominal pain, nausea vomiting. No fevers or chills. Patient well known with multiple prior ED visits. ROS All systems reviewed and are negative except as per history of present illness. Medications Home Meds Active Scripts Polyethylene Glycol* (Miralax*) 17 Gm Powd.pack, 17 GM PO DAILY, #30 PACKET Prov:KATINA MACARIO MD 08/29/16 Sennosides* (Senna Lax*) 8.6 Mg Tablet, 1 TAB PO BID for 30 Days, TAB Prov:KATINA MACARIO MD 08/29/16 Ciprofloxacin Hcl* (Ciprofloxacin Hcl*) 500 Mg Tablet, 500 MG PO BID for 7 Days , TAB Prov:RAHEEM KENDALL MD 08/29/16 Albuterol Sulfate* (Proair HFA*) 8.5 Gm Hfa.aer.ad, 2 PUFF INH Q4, #1 INHALER Prov:PARKER WEI PA-C 06/21/16 Ibuprofen* (Motrin*) 600 Mg Tab, 600 MG PO Q6H Y for PAIN AND OR ELEVATED TEMP, #15 TAB Prov:ABE MOORE MD 06/16/16 Sitagliptin* (Januvia*) 100 Mg Tab, 100 MG PO DAILY for 30 Days Prov:LISSY GONZALEZ 02/04/15 Reported Medications Insulin Glargine* (Lantus*) 100 Unit/Ml Soln, 20 UNIT SC DAILY, #1 VIAL 06/10/16 Tramadol Hcl* (Ultram*) 50 Mg Tablet, 50 MG PO TID Y for PAIN, TAB 03/30/16 Gabapentin* (Gabapentin*) 300 Mg Capsule, 300 MG PO TID, #90 CAP 03/16/16 Amitriptyline Hcl* (Amitriptyline Hcl*) 25 Mg Tablet, 25 MG PO QHS, #30 TAB 03/16/16 Clopidogrel Bisulfate (Clopidogrel) 75 Mg Tablet, 75 MG PO DAILY, #30 TAB 12/22/15 Zolpidem Tartrate* (Zolpidem Tartrate*) 10 Mg Tablet, 10 MG PO QHS Y for INSOMNIA, #30 TAB 12/22/15 Glimepiride* (Amaryl*) 1 Mg Tablet, 1 MG PO WITH BREAKFAST, TAB 03/19/15 Metformin Hcl* (Metformin Hcl*) 1,000 Mg Tablet, 1000 MG PO BID WITH MEALS, TAB 03/19/15 Atorvastatin Calcium* (Atorvastatin Calcium*) 20 Mg Tablet, 20 MG PO HS, TAB 03/19/15 Lisinopril* (Lisinopril*) 20 Mg Tablet, 20 MG PO DAILY, TAB 09/29/14 Atenolol* (Atenolol*) 50 Mg Tablet, 50 MG PO DAILY, TAB 09/29/14 Discontinued Scripts Prednisone (Prednisone) 10 Mg Tab, 10 MG PO QAM, #15 TAB 0 Refills Taper beginning with 5 tabs (50mg) tomorrow AM, dropping by 1 pill each morning until discontinued in five days. Prov:MEHRDAD GALEANO M.D. 07/31/16 Acidophilus-Bulgaricus* (BD Lactinex*) 1 Pkt Packet, 1 PKT PO DAILY for 14 Days , PACKET Prov:MEHRDAD GALEANO M.D. 07/31/16 Cephalexin* (Cephalexin*) 500 Mg Capsule, 500 MG PO Q12 for 7 Days, #14 CAP Prov:MEHRDAD GALEANO M.D. 07/31/16 Psyllium Husk-Aspartame (Metamucil Fiber Singles Packet) 3.4 Gm Powd.pack, 1 PKT PO DAILY for 14 Days Prov:MEHRDAD GALEANO M.D. 07/31/16 Acetaminophen* (Tylophen*) 500 Mg Capsule, 1 CAP PO Q6H Y for PAIN AND OR ELEVATED TEMP, #20 CAP Prov:NAIF BLAIR PA-C 07/01/16 Allergies Allergies: Coded Allergies: No Known Allergy (Unverified , 08/29/16) BECAUSE THE PATIENT ON DIALYSIS HE HAS CATHY ADVERSE REACTION TO BACTRIM,IBUPROFEN BUT HE CAN TAKE ASPIRIN PMhx/Soc Reviewed in chart. As per HPI. History of Surgery: Yes (Cardiac stents) Anesthesia Reaction: No Hx Respiratory Disorders: Yes (resp failure, likely 2/2 smoking, asthma, bronchitis) Hx Cardiac Disorders: Yes (cad, htn) Hx Miscellaneous Medical Probl: Yes (DAXA, GLAUCOMA, MORBID OBESITY) Hx Alcohol Use: Yes Hx Substance Use: Yes Hx Tobacco Use: Yes (2 ppd) FmHx Reviewed in chart. Not relevant to presenting complaint. Physical Exam Vitals Vital Signs Date Time Temp Pulse Resp B/P Pulse Ox O2 Delivery O2 Flow Rate FiO2 08/29/16 23:00 98.2 88 20 141/101 100 Room Air 08/29/16 18:01 98.4 109 23 153/109 98 Physical Exam Const: Alert, screaming. Head: Atraumatic Eyes: Normal Conjunctiva ENT: Normal External Ears, Nose and Mouth. Neck: Full range of motion. Nontender. No meningismus. Resp: Breath sounds are equal and clear to auscultation bilaterally Cardio: Regular rate and rhythm, no murmurs Abd: Soft, non tender, non distended. Obese. Normal bowel sounds Skin: No petechiae or rashes Back: No midline tenderness. Mild left greater than right CVA tenderness. Ext: No cyanosis, or edema Neur: Awake and alert. Motor and sensory equal bilaterally. Cranial nerves II through XII are grossly intact. Psych: Anxious, screaming. Denies suicidal or homicidal ideations. Result Diagram: 08/29/16192708/29/161927 Results 24 hrs Laboratory Tests Test 08/29/16 19:28 08/29/16 19:33 Anion Gap 16 Basophils # 0.010^3/ul Basophils % 0.3% Blood Morphology Comment Blood Urea Nitrogen 25mg/dl Calcium Level 9.1mg/dl Carbon Dioxide Level 30mmol/L Chloride Level 101mmol/L Creatinine 0.77mg/dl Eosinophils # 0.110^3/ul Eosinophils % 1.0% Glucose Level 115mg/dl Hematocrit 35.9% Hemoglobin 12.1g/dl Lymphocytes # 1.810^3/ul Lymphocytes % 21.0% Mean Corpuscular Hemoglobin 28.7pg Mean Corpuscular Hemoglobin Concent 33.7g/dl Mean Corpuscular Volume 85.4fl Mean Platelet Volume 8.2fl Monocytes # 0.910^3/ul Monocytes % 9.9% Neutrophils # 5.910^3/ul Neutrophils % 67.8% Nucleated Red Blood Cells # 0.010^3/ul Nucleated Red Blood Cells % 0.0/100WBC Platelet Count 55618^3/UL Potassium Level 3.9mmol/L Red Blood Count 4.2010^6/ul Red Cell Distribution Width 16.6% Sodium Level 143mmol/L Urine Bacteria MANY Urine Bilirubin 2+ Urine Clarity CLOUDY Urine Color DARK YELLOW Urine Glucose NEGATIVE% Urine Hemoglobin 3+ Urine Ictotest NEGATIVE Urine Ketones 3+ Urine Leukocyte Esterase 1+ Urine Microscopic RBC >200/HPF Urine Microscopic WBC 25-50/HPF Urine Mucus MODERATE Urine Nitrite NEGATIVE Urine Specific Peck >=1.030 Urine Total Protein 4+ Urine Transitional Epithelial Cells FEW Urine Urobilinogen 1.0 E.U./dL Urine pH 6.0 White Blood Count 8.810^3/ul Bedside Glucose 127mg/dL Current Medications Medications (Trade) Dose Ordered Sig/Stephanie Route PRN Reason Start Time Stop Time Status Last Admin Dose Admin Lorazepam 1 mg 1 mg ONCE ONCE IV 08/29/16 20:30 08/29/16 20:31 DC 08/29/16 20:19 Ceftriaxone Sodium (Rocephin) 50 ml @ 100 mls/hr ONCE ONCE IVPB 08/29/16 20:30 08/29/16 20:59 DC 08/29/16 20:34 Procedures/MDM DOCUMENTS REVIEWED: ED nurse, prior ED, prior records ED COURSE: Rocephin 1 g IV piggyback. Ativan 1 mg IV x 2. MEDICAL DECISION MAKIN-year-old male with history of diabetes, hypertension, dyslipidemia, CVA, coronary artery disease status post PCI, obstructive sleep apnea, morbid obesity was seen earlier today for urinary retention had a Scherer placed now returns to the ER complaining of moderate, sharp, nonradiating left greater than right flank pain and pain from the Scherer catheter. UTI and possible pyelonephritis without evidence of nephrolithiasis or hydronephrosis. No SIRS or sepsis. Patient did not fill the antibiotic prescription given earlier. He lives alone with home health help for only 2 hours per day. He frequently activates EMS. consulting services project manager consult obtained. He is stable but clearly is unable to care for himself at home. He state that if discharged he will just call 911 and come back to the hospital. Case discussed with Dr Rapp. He has come to the ED, assumed care of the patient and plans to discharge the patient. CALLS/CONSULTS: Time 20:45, Dr. Rapp, he will come to the ED to evaluate the patient. PATIENT CARE TRANSITIONED: Time: 23:00, Dr. Rapp. He has assumed care and will just position the patient. Departure Diagnosis: Primary Impression: UTI (urinary tract infection) Qualified Code: N39.0 - Urinary tract infection with hematuria, site unspecified Additional Impressions: Chronic pain Qualified Code: G89.29 - Other chronic pain Diabetes mellitus Qualified Code: E11.8 - Type 2 diabetes mellitus with complication, unspecified mcc insulin use status Anxiety and depression Scherer catheter in place prior to arrival Condition: Serious ANNE-MARIE CRESPO MD Aug 29, 2016 18:49
--- NOTE | 2016-08-29 19:08 | RADRPT ---
PROCEDURE: Renal US. CLINICAL INDICATION: Flank pain. TECHNIQUE: Multiple sonographic images of the kidneys were obtained. The images were reviewed on a PACS workstation. COMPARISON: CT scan abdomen pelvis 06/10/2016. FINDINGS: The kidneys are well visualized. The right kidney measures 11.3 cm sagittal. The left kidney measure s 13.24 cm sagittal. There are no focal areas of abnormal echogenicity. There is no evidence for obs tructive uropathy. Urinary bladder is incompletely distended and not evaluated. IMPRESSION: 1. Right and left kidneys are unremarkable with no evidence of a solid mass or hydronephrosis. The re is blood flow to both kidneys. RPTAT:AAJJ Physician Micha Date Time Electronically viewed and signed by Physician Micha on 08/29/2016 19:08 MILADIS/
[2016-08-29 19:41] LABS: BASOPHILS % 0.3 % (0.0-2.0); EOSINOPHILS # 0.1 10^3/ul (0.0-0.5); HEMATOCRIT 35.9 % (42.0-52.0); HEMOGLOBIN 12.1 g/dl (14.0-18.0); LYMPHOCYTES # 1.8 10^3/ul (0.8-2.9); MEAN CORPUSCULAR HEMOGLOBIN 28.7 pg (29.0-33.0); MEAN CORPUSCULAR HGB CONC 33.7 g/dl (32.0-37.0); MEAN CORPUSCULAR VOLUME 85.4 fl (82.0-101.0); MEAN PLATELET VOLUME 8.2 fl (7.4-10.4); MONOCYTE # 0.9 10^3/ul (0.3-0.9); MONOCYTES % 9.9 % (0.0-11.0); NEUTROPHIL # 5.9 10^3/ul (1.6-7.5); NEUTROPHILS % 67.8 % (39.0-77.0); PLATELET COUNT 276 10^3/UL (140-440); RED CELL DISTRIBUTION WIDTH 16.6 % (11.5-14.5); UNCORRECTED WBC 8.8 10^3/ul (4.8-10.8); WHITE BLOOD COUNT 8.8 10^3/ul (4.8-10.8)
[2016-08-29 19:43] LABS: CONDITION 1; LH ANALYZER COMMENTS 1
[2016-08-29 19:50] LABS: POTASSIUM 3.9 mmol/L (3.5-5.1)
[2016-08-29 19:53] LABS: CREATININE 0.77 mg/dl (0.61-1.24)
[2016-08-29 19:54] LABS: CALCIUM 9.1 mg/dl (8.4-10.2)
[2016-08-29 20:00] LABS: ADD UMIC YES; URINE BILIRUBIN (Dip) 2+ (NEGATIVE); URINE BLOOD (Dip) 3+ (NEGATIVE); URINE GLUCOSE (Dip) NEGATIVE (NEGATIVE); URINE KETONES (Dip) 3+ (NEGATIVE); URINE LEUKOCYTE ESTERASE (Dip) 1+ (NEGATIVE); URINE NITRITE (Dip) NEGATIVE (NEGATIVE); URINE TOTAL PROTEIN (Dip) 4+ (NEGATIVE); URINE UROBILINOGEN (Dip) 1.0 E.U./dL (0.1-1.0)
[2016-08-29 20:21] LABS: URINE COLOR DARK YELLOW (YELLOW)
[2016-08-29 20:22] LABS: BACTERIA,URINE MANY; ICTOTEST NEGATIVE (NEGATIVE); MUCUS,URINE MODERATE; TRANSITIONAL EPI CELLS,URINE FEW; URINE RBCS >200 /HPF (0)
[2016-08-29] MEDS ORDERED: CEFTRIAXONE 1 GM/50 ML (PMX) 50 ML IVPB ONE (20:30)
[2016-08-29] MEDS ORDERED: LORAZEPAM 2 MG INJ IV ONE (20:30)
--- NOTE | 2016-08-29 22:26 | RADRPT ---
PROCEDURE: XR Abdomen. CLINICAL INDICATION: Flank pain TECHNIQUE: Supine views of the abdomen were obtained. COMPARISON: None. FINDINGS: The bowel gas pattern is normal. There is no evidence of obstruction. No free intraperitoneal air i s seen. There are no abnormal calcifications overlying the urinary tracts. The osseous structures d emonstrate degenerative changes. IMPRESSION: Nonobstructive bowel gas pattern. RPTAT: HPNM Physician Betsy Date Time Electronically viewed and signed by Rene Appiah Physician on 08/29/2016 22:26 /
[2016-08-29 23:00] VITALS: BP 141/101; PULSE 88; RESP 20; TEMP 98.2
--- NOTE | 2016-08-29 23:08 | QN ---
Documentation Comment consult dict a/p 1. uti, cont cipro (b) urinary retention, continue leiva, arrange [facility]. advised patient that this is anticipated to be temporary while urinary tract infection treated 2. chron ic Low back pain with L leg radiculopathy symptoms, patient states that pain is making it difficult to walk but that he has been able to ambulate around the house. will provide short term norco, arrange home health PT 3. copd 4. CAD 5. DM 6. d/c home KATINA MACARIO MD Aug 29, 2016 23:08
[2016-08-29] MEDS ORDERED: SENN-53 PO (23:22)
[2016-08-29] MEDS ORDERED: POLY17PO6 PO (23:22)
--- NOTE | 2016-08-30 04:54 | CONS ---
DATE OF ADMISSION: 08/29/2016 DATE OF CONSULTATION: 08/29/2016 MEDICINE CONSULTATION CHIEF COMPLAINT: Dysuria. HISTORY OF PRESENTING ILLNESS: Mr. Vernon presents to the Emergency Room at [facility] with dysuria and difficulty passing urine. He was diagnosed with urinary tract infection, u rinary retention and a Scherer catheter was placed. He was given a dose of antibiotics and is dischar ged to home. He returned several hours later stating that he was having difficulty caring for himsel f. However, on further questioning, it appears that the major issue that he is having is he does not know how to take care of his new catheter. He states that he is still having some pain with urinati on as well as he acknowledges that he has been having constipation, has been passing bowel motions a pproximately 1 to 2 times a week. In addition, the patient complains of left-sided low back pain as well as left-sided leg pain that l imits him in his ambulation, though he does state that he has been able to [facility] the pain does limit him. He has been able to get up and go to the toilet, make it to the kitche n and have something to eat. He states that he has not used anything for the pain other than occasi onal Tylenol or ibuprofen. PAST MEDICAL HISTORY: Significant for chronic obstructive pulmonary disease, coronary artery disease , diabetes, hypertension. MEDICATIONS: As an outpatient include: 1. Albuterol p.r.n.. 2. Plavix 75 mg daily. 3. Atenolol 50 mg daily. 4. Lipitor 20 mg daily. 5. Lisinopril 20 mg daily. 6. Elavil 25 mg at bedtime. 7. Neurontin 300 mg 3 times a day. 8. Ibuprofen p.r.n. 9. Tramadol p.r.n. 10. Amaryl 1 mg q.a.m. 11. Lantus 20 units daily. 12. Metformin 1000 mg b.i.d. 13. Januvia 100 mg daily. ALLERGIES: NO KNOWN DRUG ALLERGIES. SOCIAL HISTORY: The patient lives at home in [place] by himself. He has the assistance of a tosin wren who visits him for approximately 2 hours each morning. The caregiver assists with bathing and d ressing, does all the cooking, assists with the shopping. According to him, the caregiver makes a me al in the morning and he eats it for the remainder of the day as well as possibly the next day. Benitez angelo caregiver does take him shopping approximately once per week and he is able to walk through the [employer] and make his purchases. He denies use of a cane or a walker. Denies tobacco, alcohol o r illicit drug use. FAMILY HISTORY: Noncontributory. REVIEW OF SYSTEMS: Five systems were reviewed and found not to be revealing. PHYSICAL EXAMINATION: VITAL SIGNS: Blood pressure is 150/100, pulse rate 100, respirations 20, temperature 98.4. GENERAL: Pleasant man, in no acute distress. Alert and oriented x3. HEENT: Normocephalic, atraumatic, without evidence of scleral icterus or perioral cyanosis. Mucous m embranes are moist. NECK: Soft and supple without masses. No evidence of jugular venous distention or carotid bruits. CHEST: Clear to auscultation and percussion bilaterally. HEART: Regular rate and rhythm. S1 and S2, no added sounds. ABDOMEN: Soft, nontender, nondistended, without palpable hepatosplenomegaly. EXTREMITIES: Without clubbing, cyanosis or edema. Pedal pulses are intact. There is a leg bag in s itu draining clear, yellow urine. SKIN: Without rashes. NEUROLOGIC: Grossly intact. LABORATORY STUDIES: Reveal a hemoglobin of 12.1 G/dL, white count of 8800, platelet count 276,000. Sodium 143, potassium 3.9, chloride 101, bicarbonate 30, BUN 25, creatinine 0.77, glucose 115. Urin e shows 25 to 50 white blood cells, greater than 200 red blood cells, 1+ leukocyte esterase, 4+ prot ein. ASSESSMENT AND PLAN: 1. Genitourinary. Patient with urinary tract infection. We will continue with ciprofloxacin as or iginally prescribed. The patient is advised that it is okay to pick this up in the morning and elizabeth shaw then. He has received a dose of Rocephin here in the Emergency Room at this time. 2. Urinary retention. Continue Scherer catheter. The patient is advised that this is likely to be a temporary situation for the next week or two while his infection is cleared up. He will be provide d Home Health RN for Scherer catheter care. He seems very pleased with this. 3. Back pain and leg pain. The patient will be provided a short course of [place] to assist with thi s as well as some laxatives to take with this. 4. Pulmonary ____chronic obstructive pulmonary disease. Continue inhalers. 5. Coronary artery disease. Continue secondary prevention. 6. Diabetes. Continue current regimen. 7. Disposition. We will plan to discharge to home. Dictated By: KATINA MACARIO MD RER/NTS Conf#: [id number] DID#: [id number]
== END 2016-08-29 23:58 | disposition home or self-care (01) ==
LOC: E/R 17:25
DX: N39.0 Urinary tract infection, site not specified (principal); G89.29 Other chronic pain; E11.8 Type 2 diabetes mellitus with unspecified complications; F41.9 Anxiety disorder, unspecified; F32.9 Major depressive disorder, single episode, unspecified; T83.091A Other mechanical complication of indwelling urethral catheter, initial encounter; I10 Essential (primary) hypertension; J45.909 Unspecified asthma, uncomplicated; E66.01 Morbid (severe) obesity due to excess calories; I25.10 Atherosclerotic heart disease of native coronary artery without angina pectoris; F17.210 Nicotine dependence, cigarettes, uncomplicated; Y73.8 Miscellaneous gastroenterology and urology devices associated with adverse incidents, not elsewhere classified; Z68.41 Body mass index [BMI] 40.0-44.9, adult; Z98.61 Coronary angioplasty status
CPT/HCPCS: 36415; 74000; 76775; 80048; 81001; 82962; 85025; 87086; 96374; 96375; J0696; J2060; Z7502; Z7610; 81003

== ENCOUNTER 2016-08-30 04:04 | Emergency (ER) | payer OTHER ==
[~2016-08-30] VITALS: Ht 160 cm; Wt 110.0 kg
[~2016-08-30 04:04] MED LIST changes: -ACET500C5 PO; -CEPH500C PO; -LACTINEXG PO; +POLY17PO6 PO; -PRED10TA PO; -PSYL3.4P5 PO; +SENN-53 PO
--- NOTE | 2016-08-30 04:15 | ERD ---
ER Documentation Chief Complaint Date/Time DATE: 08/30/16 TIME: 04:14 Chief Complaint HPI This is a 6-year-old male has been in multiple times in the past few days for chronic pain. Patient is a chronic abuser of both the 911 system in the emergency department. At this point he has no new complaints. ROS All systems reviewed and are negative except as per history of present illness. Medications Home Meds Active Scripts Polyethylene Glycol* (Miralax*) 17 Gm Powd.pack, 17 GM PO DAILY, #30 PACKET Prov:KATINA MACARIO MD 08/29/16 Sennosides* (Senna Lax*) 8.6 Mg Tablet, 1 TAB PO BID for 30 Days, TAB Prov:KATINA MACARIO MD 08/29/16 Ciprofloxacin Hcl* (Ciprofloxacin Hcl*) 500 Mg Tablet, 500 MG PO BID for 7 Days , TAB Prov:RAHEEM KENDALL MD 08/29/16 Albuterol Sulfate* (Proair HFA*) 8.5 Gm Hfa.aer.ad, 2 PUFF INH Q4, #1 INHALER Prov:PARKER WEI PA-C 06/21/16 Ibuprofen* (Motrin*) 600 Mg Tab, 600 MG PO Q6H Y for PAIN AND OR ELEVATED TEMP, #15 TAB Prov:ABE MOROE MD 06/16/16 Sitagliptin* (Januvia*) 100 Mg Tab, 100 MG PO DAILY for 30 Days Prov:LISSY GONZALEZ 02/04/15 Reported Medications Insulin Glargine* (Lantus*) 100 Unit/Ml Soln, 20 UNIT SC DAILY, #1 VIAL 06/10/16 Tramadol Hcl* (Ultram*) 50 Mg Tablet, 50 MG PO TID Y for PAIN, TAB 03/30/16 Gabapentin* (Gabapentin*) 300 Mg Capsule, 300 MG PO TID, #90 CAP 03/16/16 Amitriptyline Hcl* (Amitriptyline Hcl*) 25 Mg Tablet, 25 MG PO QHS, #30 TAB 03/16/16 Clopidogrel Bisulfate (Clopidogrel) 75 Mg Tablet, 75 MG PO DAILY, #30 TAB 12/22/15 Zolpidem Tartrate* (Zolpidem Tartrate*) 10 Mg Tablet, 10 MG PO QHS Y for INSOMNIA, #30 TAB 12/22/15 Glimepiride* (Amaryl*) 1 Mg Tablet, 1 MG PO WITH BREAKFAST, TAB 03/19/15 Metformin Hcl* (Metformin Hcl*) 1,000 Mg Tablet, 1000 MG PO BID WITH MEALS, TAB 03/19/15 Atorvastatin Calcium* (Atorvastatin Calcium*) 20 Mg Tablet, 20 MG PO HS, TAB 03/19/15 Lisinopril* (Lisinopril*) 20 Mg Tablet, 20 MG PO DAILY, TAB 09/29/14 Atenolol* (Atenolol*) 50 Mg Tablet, 50 MG PO DAILY, TAB 09/29/14 Discontinued Scripts Prednisone (Prednisone) 10 Mg Tab, 10 MG PO QAM, #15 TAB 0 Refills Taper beginning with 5 tabs (50mg) tomorrow AM, dropping by 1 pill each morning until discontinued in five days. Prov:MEHRDAD GALEANO M.D. 07/31/16 Acidophilus-Bulgaricus* (BD Lactinex*) 1 Pkt Packet, 1 PKT PO DAILY for 14 Days , PACKET Prov:MEHRDAD GALEANO M.D. 07/31/16 Cephalexin* (Cephalexin*) 500 Mg Capsule, 500 MG PO Q12 for 7 Days, #14 CAP Prov:MEHRDAD GALEANO M.D. 07/31/16 Psyllium Husk-Aspartame (Metamucil Fiber Singles Packet) 3.4 Gm Powd.pack, 1 PKT PO DAILY for 14 Days Prov:MEHRDAD GALEANO M.D. 07/31/16 Acetaminophen* (Tylophen*) 500 Mg Capsule, 1 CAP PO Q6H Y for PAIN AND OR ELEVATED TEMP, #20 CAP Prov:NAIF BLAIR PA-C 07/01/16 Allergies Allergies: Coded Allergies: No Known Allergy (Unverified , 08/29/16) BECAUSE THE PATIENT ON DIALYSIS HE HAS CATHY ADVERSE REACTION TO BACTRIM,IBUPROFEN BUT HE CAN TAKE ASPIRIN PMhx/Soc History of Surgery: Yes (Cardiac stents) Anesthesia Reaction: No Hx Respiratory Disorders: Yes (resp failure, likely 2/2 smoking, asthma, bronchitis) Hx Cardiac Disorders: Yes (cad, htn) Hx Miscellaneous Medical Probl: Yes (DAXA, GLAUCOMA, MORBID OBESITY) Hx Alcohol Use: Yes Hx Substance Use: Yes Hx Tobacco Use: Yes (2 ppd) Physical Exam Physical Exam Const: [] Head: Atraumatic Eyes: Normal Conjunctiva ENT: Normal External Ears, Nose and Mouth. Neck: Full range of motion..~ No meningismus. Resp: Clear to auscultation bilaterally Cardio: Regular rate and rhythm, no murmurs Abd: Soft, non tender, non distended. Normal bowel sounds Skin: No petechiae or rashes Back: No midline or flank tenderness Ext: No cyanosis, or edema Neur: Awake and alert Psych: Normal Mood and Affect Procedures/MDM Medical decision making: This gentleman with chronic pain. At this point is stable for outpatient management. He will be discharged home. Departure Diagnosis: Primary Impression: Acute exacerbation of chronic low back pain Condition: Stable DON MILES Aug 30, 2016 04:15
[2016-08-30 04:16] VITALS: Ht 160 cm; Wt 110.0 kg
== END 2016-08-30 04:37 | disposition home or self-care (01) ==
LOC: E/R 04:04
DX: M54.5 Low back pain (principal); F17.210 Nicotine dependence, cigarettes, uncomplicated; E66.01 Morbid (severe) obesity due to excess calories; I10 Essential (primary) hypertension; I25.10 Atherosclerotic heart disease of native coronary artery without angina pectoris; J45.909 Unspecified asthma, uncomplicated; Z98.61 Coronary angioplasty status; Z68.41 Body mass index [BMI] 40.0-44.9, adult
CPT/HCPCS: 99283

== ENCOUNTER 2016-09-01 09:09 | Emergency (ER) | payer OTHER ==
[~2016-09-01] VITALS: Ht 160 cm; Wt 100.0 kg
[2016-09-01 09:20] VITALS: Ht 160 cm; Wt 100.0 kg
[2016-09-01 10:17] LABS: BASOPHILS % 0.5 % (0.0-2.0); EOSINOPHILS # 0.1 10^3/ul (0.0-0.5); EOSINOPHILS % 0.8 % (0.0-7.0); HEMOGLOBIN 11.6 g/dl (14.0-18.0); LYMPHOCYTES # 1.3 10^3/ul (0.8-2.9); LYMPHOCYTES % 18.2 % (15.0-51.0); MEAN CORPUSCULAR HGB CONC 33.2 g/dl (32.0-37.0); MEAN CORPUSCULAR VOLUME 84.4 fl (82.0-101.0); MONOCYTE # 0.7 10^3/ul (0.3-0.9); MONOCYTES % 10.4 % (0.0-11.0); NEUTROPHILS % 70.1 % (39.0-77.0); PLATELET COUNT 247 10^3/UL (140-440); RED BLOOD COUNT 4.14 10^6/ul (4.70-6.10); UNCORRECTED WBC 7.2 10^3/ul (4.8-10.8); WHITE BLOOD COUNT 7.2 10^3/ul (4.8-10.8)
[2016-09-01 10:21] LABS: CONDITION 1; LH ANALYZER COMMENTS 1
[2016-09-01 10:28] LABS: ALBUMIN 3.6 g/dl (3.3-4.9); POTASSIUM 4.4 mmol/L (3.5-5.1)
[2016-09-01 10:30] LABS: BILIRUBIN,INDIRECT 0.3 mg/dl (0-1.1); BILIRUBIN,TOTAL 0.3 mg/dl (0.2-1.3); CREATININE 0.82 mg/dl (0.61-1.24)
[2016-09-01 10:31] LABS: ALBUMIN/GLOBULIN RATIO 1.2; CALCIUM 8.7 mg/dl (8.4-10.2); TOTAL PROTEIN 6.6 g/dl (6.1-8.1)
[2016-09-01 10:42] LABS: TROPONIN-I 0.017 ng/ml (0.00-0.12)
[2016-09-01 10:43] LABS: ADD UMIC YES; URINE BILIRUBIN (Dip) NEGATIVE (NEGATIVE); URINE BLOOD (Dip) 2+ (NEGATIVE); URINE COLOR LT. YELLOW (YELLOW); URINE GLUCOSE (Dip) NEGATIVE (NEGATIVE); URINE KETONES (Dip) TRACE (NEGATIVE); URINE LEUKOCYTE ESTERASE (Dip) NEGATIVE (NEGATIVE); URINE NITRITE (Dip) NEGATIVE (NEGATIVE); URINE TOTAL PROTEIN (Dip) 1+ (NEGATIVE); URINE UROBILINOGEN (Dip) 1.0 E.U./dL (0.1-1.0)
[2016-09-01 11:09] LABS: MUCUS,URINE FEW
[2016-09-01] MEDS ORDERED: KETOROLAC 30 MG INJ IM STA (11:17)
[2016-09-01 11:42] LABS: BARBITURATES POSITIVE (NEGATIVE); BENZODIAZEPINES NEGATIVE (NEGATIVE); CANNABINOIDS NEGATIVE (NEGATIVE); COCAINE NEGATIVE (NEGATIVE); OPIATES NEGATIVE (NEGATIVE)
[2016-09-01] MEDS ORDERED: LORAZEPAM 2 MG INJ IM ONE ×2 (13:30→15:00)
--- NOTE | 2016-09-01 13:36 | ERA ---
ER Documentation Chief Complaint Date/Time DATE: 09/01/16 TIME: 13:35 Chief Complaint per ems c/o cough HPI 56-year-old man brought in by EMS from home for complaints of cough. He was just discharged from [facility] emergency department and has been here over 10 times over the last month and a half and is here usually more than once per week. None of his symptoms are new, he denies chest pain or shortness of breath, denies headache or blurry vision, denies vomiting or diarrhea. Patient states he feels depressed. ROS All systems reviewed and are negative except as per history of present illness. Medications Home Meds Active Scripts Polyethylene Glycol* (Miralax*) 17 Gm Powd.pack, 17 GM PO DAILY, #30 PACKET Prov:KATINA MACARIO MD 08/29/16 Sennosides* (Senna Lax*) 8.6 Mg Tablet, 1 TAB PO BID for 30 Days, TAB Prov:KATINA MACARIO MD 08/29/16 Ciprofloxacin Hcl* (Ciprofloxacin Hcl*) 500 Mg Tablet, 500 MG PO BID for 7 Days , TAB Prov:RAHEEM KENDALL MD 08/29/16 Albuterol Sulfate* (Proair HFA*) 8.5 Gm Hfa.aer.ad, 2 PUFF INH Q4, #1 INHALER Prov:PARKER WEI PA-C 06/21/16 Ibuprofen* (Motrin*) 600 Mg Tab, 600 MG PO Q6H Y for PAIN AND OR ELEVATED TEMP, #15 TAB Prov:ABE MOORE MD 06/16/16 Sitagliptin* (Januvia*) 100 Mg Tab, 100 MG PO DAILY for 30 Days Prov:LISSY GONZALEZ 02/04/15 Reported Medications Insulin Glargine* (Lantus*) 100 Unit/Ml Soln, 20 UNIT SC DAILY, #1 VIAL 06/10/16 Tramadol Hcl* (Ultram*) 50 Mg Tablet, 50 MG PO TID Y for PAIN, TAB 03/30/16 Gabapentin* (Gabapentin*) 300 Mg Capsule, 300 MG PO TID, #90 CAP 03/16/16 Amitriptyline Hcl* (Amitriptyline Hcl*) 25 Mg Tablet, 25 MG PO QHS, #30 TAB 03/16/16 Clopidogrel Bisulfate (Clopidogrel) 75 Mg Tablet, 75 MG PO DAILY, #30 TAB 12/22/15 Zolpidem Tartrate* (Zolpidem Tartrate*) 10 Mg Tablet, 10 MG PO QHS Y for INSOMNIA, #30 TAB 12/22/15 Glimepiride* (Amaryl*) 1 Mg Tablet, 1 MG PO WITH BREAKFAST, TAB 03/19/15 Metformin Hcl* (Metformin Hcl*) 1,000 Mg Tablet, 1000 MG PO BID WITH MEALS, TAB 03/19/15 Atorvastatin Calcium* (Atorvastatin Calcium*) 20 Mg Tablet, 20 MG PO HS, TAB 03/19/15 Lisinopril* (Lisinopril*) 20 Mg Tablet, 20 MG PO DAILY, TAB 09/29/14 Atenolol* (Atenolol*) 50 Mg Tablet, 50 MG PO DAILY, TAB 09/29/14 Discontinued Scripts Prednisone (Prednisone) 10 Mg Tab, 10 MG PO QAM, #15 TAB 0 Refills Taper beginning with 5 tabs (50mg) tomorrow AM, dropping by 1 pill each morning until discontinued in five days. Prov:MEHRDAD GALEANO M.D. 07/31/16 Acidophilus-Bulgaricus* (BD Lactinex*) 1 Pkt Packet, 1 PKT PO DAILY for 14 Days , PACKET Prov:MEHRDAD GALEANO M.D. 07/31/16 Cephalexin* (Cephalexin*) 500 Mg Capsule, 500 MG PO Q12 for 7 Days, #14 CAP Prov:MEHRDAD GALEANO M.D. 07/31/16 Psyllium Husk-Aspartame (Metamucil Fiber Singles Packet) 3.4 Gm Powd.pack, 1 PKT PO DAILY for 14 Days Prov:MEHRDAD GALEANO M.D. 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 History of Surgery: Yes (Cardiac stents) Anesthesia Reaction: No Hx Respiratory Disorders: Yes (resp failure, likely 2/2 smoking, asthma, bronchitis) Hx Cardiac Disorders: Yes (cad, htn) Hx Miscellaneous Medical Probl: Yes (DAXA, GLAUCOMA, MORBID OBESITY) Hx Alcohol Use: Yes Hx Substance Use: Yes Hx Tobacco Use: Yes (2 ppd) Smoking Status: Former smoker FmHx Family History: No diabetes Physical Exam Vitals Vital Signs Date Time Temp Pulse Resp B/P Pulse Ox O2 Delivery O2 Flow Rate FiO2 09/01/16 10:47 2.0 09/01/16 10:00 99.3 81 20 144/82 98 Nasal Cannula 2.0 09/01/16 09:20 98.8 76 18 151/82 90 Physical Exam GENERAL: Well-developed, well-nourished, agitated HEENT: Moist mucous membranes, pink conjunctiva, no cervical spine tenderness or step-off deformities, no goiter, no jaundice or icterus, extraocular movements intact without pain. No submandibular induration, and no pharyngeal erythema NEURO: Alert and oriented 2, cranial nerves II through XII intact bilaterally, pupils equal round reactive to light, no focal deficits or facial asymmetry, sensation intact distally Strength 5/5 in upper and lower extremities bilaterally CARDIAC: Regular rate and rhythm, no murmurs rubs or gallops LUNGS: Clear bilaterally no wheezing crackles or stridor ABDOMEN: Soft nontender, no guarding, no rigidity, no rebound, no psoas sign no obturator sign. Normoactive bowel sounds SKIN: Warm and dry to touch, no abrasions, contusions, or hematomas, no lacerations, no ecchymosis, no target lesions, and without ulcers EXTREMITIES: No clubbing cyanosis or edema, calves are bilaterally symmetrical, no Homans sign, no popliteal cord sign. Distal pulses equal and bilateral PSYCH: Agitated and anxious with a depressed affect Result Diagram: 09/01/1655 09/01/16 0955 Results 24 hrs Laboratory Tests Test 09/01/16 09:55 09/01/16 10:20 Alanine Aminotransferase (ALT/SGPT) 28IU/L Albumin 3.6g/dl Albumin/Globulin Ratio 1.20 Alkaline Phosphatase 70IU/L Anion Gap 15 Aspartate Amino Transf (AST/SGOT) 18IU/L Basophils # 0.010^3/ul Basophils % 0.5% Blood Morphology Comment Blood Urea Nitrogen 23mg/dl Calcium Level 8.7mg/dl Carbon Dioxide Level 30mmol/L Chloride Level 103mmol/L Creatinine 0.82mg/dl Direct Bilirubin 0.00mg/dl Eosinophils # 0.110^3/ul Eosinophils % 0.8% Ethyl Alcohol Level < 10.0mg/dl Globulin 3.00g/dl Glucose Level 140mg/dl Hematocrit 35.0% Hemoglobin 11.6g/dl Indirect Bilirubin 0.3mg/dl Lipase 104U/L Lymphocytes # 1.310^3/ul Lymphocytes % 18.2% Mean Corpuscular Hemoglobin 28.0pg Mean Corpuscular Hemoglobin Concent 33.2g/dl Mean Corpuscular Volume 84.4fl Mean Platelet Volume 8.0fl Monocytes # 0.710^3/ul Monocytes % 10.4% Neutrophils # 5.010^3/ul Neutrophils % 70.1% Nucleated Red Blood Cells # 0.010^3/ul Nucleated Red Blood Cells % 0.0/100WBC Platelet Count 01667^3/UL Potassium Level 4.4mmol/L Red Blood Count 4.1410^6/ul Red Cell Distribution Width 17.0% Sodium Level 144mmol/L Total Bilirubin 0.3mg/dl Total Protein 6.6g/dl Troponin I 0.017ng/ml White Blood Count 7.210^3/ul Urine Amphetamines Screen NEGATIVE Urine Barbiturates POSITIVE Urine Benzodiazepines Screen NEGATIVE Urine Bilirubin NEGATIVE Urine Cannabinoids NEGATIVE Urine Clarity CLEAR Urine Cocaine Screen NEGATIVE Urine Color LT. YELLOW Urine Glucose NEGATIVE% Urine Hemoglobin 2+ Urine Ketones TRACE Urine Leukocyte Esterase NEGATIVE Urine Microscopic RBC 10-25/HPF Urine Microscopic WBC 0-2/HPF Urine Mucus FEW Urine Nitrite NEGATIVE Urine Opiates Screen NEGATIVE Urine Specific Accord >=1.030 Urine Total Protein 1+ Urine Urobilinogen 1.0 E.U./dL Urine pH 5.5 Current Medications Medications (Trade) Dose Ordered Sig/Stephanie Route PRN Reason Start Time Stop Time Status Last Admin Dose Admin Ketorolac Tromethamine (Toradol) 30 mg ONCE STAT IM 2/16/17 11:17 09/01/16 11:19 DC 09/01/16 11:41 Lorazepam (Ativan) 1 mg ONCE ONCE IM 09/01/16 13:30 09/01/16 13:31 DC 09/01/16 13:25 Procedures/[facility] For complaints of back pain I administered Toradol 30 mg intramuscular injection. EKG performed, read by me revealed a normal sinus rhythm at 75 bpm, left axis deviation and a right bundle branch block, no concerning ST elevations or depressions noted. Tele-psychiatrist evaluation was initially obtained although at that time patient did not endorse active depression or suicidal ideation and was psychiatrically cleared for outpatient management. Although after that initial evaluation he began to decompensate psychiatrically and became tearful and speaking in [place] stated he wanted to , "have no reason to live" ", "just ended it already". This was also heard and documented by the [place] speaking 7th grade social studies teacher who was at the bedside. Patient does have a history of severe depression and anxiety and given his new complaints I have concern about his emotional well-being and ordered PET evaluation. Psychiatric water ski assembler saw him at the bedside and discussed with me his recent issues and complaints here in the emergency department and recommended a 5150 psychiatric hold. CBC is unremarkable, electrolytes are within normal limits, liver function tests are normal, troponin was negative. Urinalysis was negative for infection. Urine toxicology was positive for barbiturates otherwise unremarkable, ethanol level was negative. Patient's behavioral symptoms have stabilized while in the department. Patient is medically cleared and appropriate for psychiatric evaluation and work up. No e/o neurologic, toxic, infectious, or metabolic cause. For continued agitation and depressive symptoms I administered lorazepam 1 mg intramuscular injection. Patient will be transferred to [facility] psychiatric facility. Departure Diagnosis: Primary Impression: Depression Qualified Code: F33.1 - Moderate episode of recurrent major depressive disorder Additional Impression: Suicidal ideation Condition: RUBY Godfrey MD Sep 01, 2016 13:36
[2016-09-01 14:51] VITALS: BP 156/100; PULSE 79; RESP 17; TEMP 98.2
--- NOTE | 2016-09-01 17:22 | PSY ---
Date/Time of Note Date/Time of Note DATE: 09/01/16 TIME: 17:13 Psychiatric Subjective Eval Consent Pt consented to telemedicine: Yes Subjective Evaluation Patient location: emergency Chief Complaint: per ems c/o cough History of present illness d/w Dr Campbell. pt is 56 yo male with multiple medical problems including CAD , COPD, CVA, frequent ED visits. He called 911 and was taken to this ED on 08/30 , , . Pt said, he is here because of the chest pain and because he is hungry. he is oriented to place, but not to time. 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 he says his 83 yo mother sometimes cooks for him but he has limited social supprot. he says he feels sad and nervous at times. he denies any si or hi, no ah or vh. he does c/o poor memory; he is able to recall to 3/3 on immediate recall and 2/ 3 in 5 minutes. Past psychiatric history denies Hospitalization: no Family History denies Medical history Problems Medical Problems: (1) Abdominal pain Status: Acute (2) Acute abdominal pain Status: Acute (3) Acute exacerbation of chronic low back pain Status: Acute (4) Acute exacerbation of chronic obstructive pulmonary disease (COPD) Status: Acute (5) Acute respiratory failure with hypoxia and hypercapnia Status: Acute (6) Acute weakness Status: Acute (7) Anxiety Status: Acute (8) Anxiety Status: Acute (9) Anxiety Status: Acute (10) Back pain Status: Acute (11) Guillermo's palsy Status: Acute (12) Bronchospasm Status: Acute (13) Chest pain Status: Acute (14) COPD (chronic obstructive pulmonary disease) Status: Acute (15) COPD (chronic obstructive pulmonary disease) Status: Acute (16) COPD (chronic obstructive pulmonary disease) Status: Acute (17) COPD exacerbation Status: Acute (18) COPD exacerbation Status: Acute (19) COPD exacerbation Status: Acute (20) COPD exacerbation Status: Acute (21) Cough Status: Acute (22) CVA (cerebral vascular accident) Status: Chronic (23) Depression Status: Acute (24) DM neuro manif type II, uncontrolled Status: Chronic (25) Foot pain Status: Acute (26) Foot pain Status: Acute (27) Foot pain Status: Acute (28) Grave disability Status: Acute (29) Headache Status: Acute (30) Hyperglycemia Status: Acute (31) Hyperkalemia Status: Acute (32) Left foot pain Status: Acute (33) Lumbar strain Status: Acute (34) Malingering Status: Acute (35) Normocytic anemia Status: Acute (36) Pain of left leg Status: Acute (37) Palpitations Status: Acute (38) Palpitations Status: Acute (39) Patient left without being seen Status: Acute (40) Retention of urine Status: Acute (41) Septic shock Status: Acute (42) Shortness of breath Status: Acute (43) Shortness of breath Status: Acute (44) Shortness of breath Status: Acute (45) SOB (shortness of breath) Status: Acute (46) Suicidal ideation Status: Acute (47) Wheezing Status: Acute (48) Wheezing Status: Acute Allergies: Coded Allergies: No Known Allergy (Unverified , 08/29/16) BECAUSE THE PATIENT ON DIALYSIS HE HAS CATHY ADVERSE REACTION TO BACTRIM,IBUPROFEN BUT HE CAN TAKE ASPIRIN Substance Abuse Substance use: No known substance abuse Social History Marital status: single Occupation/Fpc: disabled Psychiatric Objective Eval Mental Status Examination: Appearance: Disheveled Eye Contact: Fair Psychomotor Activity: Normal Behavior: Cooperative Speech: Clear AFFECT: Appropriate Mood: Anxious Though Process: Linear Thought Content: Normal Suicidal: No Homicidal: No On 72 hour hold: No Orientation: x2 Cognition: Alert, Drowsy Insight: Impared Judgement: Impared Laboratory Results Laboratory Tests Test 09/01/16 09:55 09/01/16 10:20 Alanine Aminotransferase (ALT/SGPT) 28IU/L Albumin 3.6g/dl Albumin/Globulin Ratio 1.20 Alkaline Phosphatase 70IU/L Anion Gap 15 Aspartate Amino Transf (AST/SGOT) 18IU/L Basophils # 0.010^3/ul Basophils % 0.5% Blood Morphology Comment Blood Urea Nitrogen 23mg/dl Calcium Level 8.7mg/dl Carbon Dioxide Level 30mmol/L Chloride Level 103mmol/L Creatinine 0.82mg/dl Direct Bilirubin 0.00mg/dl Eosinophils # 0.110^3/ul Eosinophils % 0.8% Ethyl Alcohol Level < 10.0mg/dl Globulin 3.00g/dl Glucose Level 140mg/dl Hematocrit 35.0% Hemoglobin 11.6g/dl Indirect Bilirubin 0.3mg/dl Lipase 104U/L Lymphocytes # 1.310^3/ul Lymphocytes % 18.2% Mean Corpuscular Hemoglobin 28.0pg Mean Corpuscular Hemoglobin Concent 33.2g/dl Mean Corpuscular Volume 84.4fl Mean Platelet Volume 8.0fl Monocytes # 0.710^3/ul Monocytes % 10.4% Neutrophils # 5.010^3/ul Neutrophils % 70.1% Nucleated Red Blood Cells # 0.010^3/ul Nucleated Red Blood Cells % 0.0/100WBC Platelet Count 05451^3/UL Potassium Level 4.4mmol/L Red Blood Count 4.1410^6/ul Red Cell Distribution Width 17.0% Sodium Level 144mmol/L Total Bilirubin 0.3mg/dl Total Protein 6.6g/dl Troponin I 0.017ng/ml White Blood Count 7.210^3/ul Urine Amphetamines Screen NEGATIVE Urine Barbiturates POSITIVE Urine Benzodiazepines Screen NEGATIVE Urine Bilirubin NEGATIVE Urine Cannabinoids NEGATIVE Urine Clarity CLEAR Urine Cocaine Screen NEGATIVE Urine Color LT. YELLOW Urine Glucose NEGATIVE% Urine Hemoglobin 2+ Urine Ketones TRACE Urine Leukocyte Esterase NEGATIVE Urine Microscopic RBC 10-25/HPF Urine Microscopic WBC 0-2/HPF Urine Mucus FEW Urine Nitrite NEGATIVE Urine Opiates Screen NEGATIVE Urine Specific [place] >=1.030 Urine Total Protein 1+ Urine Urobilinogen 1.0 E.U./dL Urine pH 5.5 Assessment and Plan Assessment/Diagnosis [place] I: VASCULAR DEMENTIA, MILD TO MODERATE. ANXIETY D/O NOS [place] II: DEFERED [place] III: PER RECORD [place] IV: SEVERE [place] V: GAF 35 Recommendation/Plan Medication Management DEFER TO OUTPT; PT DOES MENTION MEMORY IMPARIMENT, THERE IS A POSSIBILITY HE IS MISMANAGES HIS MEDS Psychotherapy N/A Pt. Caregiver/Family Education SW - PLEASE FILE APS REPORT Follow-up/Disposition D/W DR CAMPBELL - PT DOES NOT HAVE DECISION MAKING CAPACITY; PT DOES NOT MEET CRITERIA FOR INPT PSYCHIATRIC CARE. PLEASE CONSDIER TRASFERING TO A SNF OR BOARD AND CARE. KATERYNA FARRAR MD Sep 01, 2016 17:21
== END 2016-09-01 15:26 ==
LOC: E/R 09:09
DX: F33.1 Major depressive disorder, recurrent, moderate (principal); R45.851 Suicidal ideations; I25.10 Atherosclerotic heart disease of native coronary artery without angina pectoris; I10 Essential (primary) hypertension; J45.909 Unspecified asthma, uncomplicated; E66.01 Morbid (severe) obesity due to excess calories; E11.9 Type 2 diabetes mellitus without complications; Z87.891 Personal history of nicotine dependence; Z98.61 Coronary angioplasty status; Z68.39 Body mass index [BMI] 39.0-39.9, adult; Z79.4 Long term (current) use of insulin; Z79.84 Long term (current) use of oral hypoglycemic drugs
CPT/HCPCS: 36415; 51701; 80053; 80306; 80307; 81001; 83690; 84484; 85025; 87086; 93005; 96372; J1885; J2060; Z7502; Z7610; 81003

== ENCOUNTER 2016-11-25 12:42 | Emergency (ER) | payer OTHER ==
[~2016-11-25] VITALS: Ht 172.7 cm; Wt 109.0 kg
[2016-11-25 13:10] VITALS: Ht 172.7 cm; Wt 109.0 kg
[2016-11-25] MEDS ORDERED: ASPIRIN 325 MG TAB PO STA (13:20)
[2016-11-25 13:26] LABS: ADD SCAN DIFF NO
[2016-11-25 13:31] LABS: BASOPHILS % 0.4 % (0.0-2.0); EOSINOPHILS # 0.1 10^3/ul (0.0-0.5); EOSINOPHILS % 1.3 % (0.0-7.0); HEMATOCRIT 41.2 % (42.0-52.0); HEMOGLOBIN 13.6 g/dl (14.0-18.0); LYMPHOCYTES # 1.6 10^3/ul (0.8-2.9); LYMPHOCYTES % 20.6 % (15.0-51.0); MEAN CORPUSCULAR HEMOGLOBIN 27.7 pg (29.0-33.0); MEAN CORPUSCULAR VOLUME 83.9 fl (82.0-101.0); MONOCYTE # 0.5 10^3/ul (0.3-0.9); MONOCYTES % 6.8 % (0.0-11.0); NEUTROPHIL # 5.5 10^3/ul (1.6-7.5); NEUTROPHILS % 70.5 % (39.0-77.0); PLATELET COUNT 240 10^3/UL (140-415); RED BLOOD COUNT 4.91 10^6/ul (4.70-6.10); WHITE BLOOD COUNT 7.8 10^3/ul (4.8-10.8)
[2016-11-25 13:44] LABS: CHLORIDE 98 mmol/L (97-110); SODIUM 137 mmol/L (135-144)
[2016-11-25 13:45] LABS: INR 0.89; POTASSIUM 4.3 mmol/L (3.5-5.1); PT RATIO 0.9
[2016-11-25 13:46] LABS: PARTIAL THROMBOPLASTIN TIME 27.5 Sec (25.0-35.0)
[2016-11-25 13:47] LABS: ANION GAP 14 (8-16); CARBON DIOXIDE 29 mmol/L (21-31); CREATININE 0.76 mg/dl (0.61-1.24)
[2016-11-25 13:48] LABS: BLOOD UREA NITROGEN 23 mg/dl (7-20); CALCIUM 9.1 mg/dl (8.4-10.2); GLUCOSE 167 mg/dl (70-220)
[2016-11-25 14:02] LABS: TROPONIN-I < 0.012 ng/ml (0.00-0.12)
[2016-11-25] MEDS ORDERED: ALBUTEROL 0.083% (NEB) 2.5 MG/3 ML AMP HHN STA (14:22)
[2016-11-25] MEDS ORDERED: IPRATROPIUM (NEB) 0.5 MG/2.5 ML AMP HHN ONE (14:30)
--- NOTE | 2016-11-25 15:02 | RADRPT ---
PROCEDURE: CHEST 1VW CLINICAL INDICATION: Chest pain TECHNIQUE: Single frontal view of the chest was obtained COMPARISON: 07/31/2016 FINDINGS: The cardiac size is normal. Aortic vascular calcifications are demonstrated. There is no pulmonary vascular congestion. The lungs are clear. No consolidation, effusion, or pneumothorax. Mild degenerative changes of the visualized osseous structures are visualized. IMPRESSION: 1. No acute cardiopulmonary process. 2. Atherosclerosis. RPTAT:PP .Marcus Almaguer MD, MD Date Time Electronically viewed and signed by .Marcus Almaguer MD, on 11/25/2016 15:01 .V/
[2016-11-25] MEDS ORDERED: KETOROLAC 30 MG INJ IV STA (15:19)
[2016-11-25] MEDS ORDERED: CEPH-443 PO (15:58)
[2016-11-25] MEDS ORDERED: SULF1TAB31 PO (15:58)
[2016-11-25] MEDS ORDERED: NAPR-688 PO (15:58)
[2016-11-25] MEDS ORDERED: RANI150T9 PO (15:58)
--- NOTE | 2016-11-25 15:59 | RADRPT ---
PROCEDURE: XR Left Foot. CLINICAL INDICATION: Left foot pain. TECHNIQUE: Three views. Frontal, lateral, and oblique. COMPARISON: 06/16/2016. FINDINGS: There is no fracture or dislocation. The soft tissues are normal. Articular surfaces are intact. There is a small plantar calcaneal spur. There is no lytic or blastic lesion. There is no radiopaque foreign body. IMPRESSION: 1. Small plantar calcaneal spur. 2. Otherwise normal images of the left foot. RPTAT: QQ .Jasbir Castrejon MD, MD Date Time Electronically viewed and signed by .Jasbir Castrejon MD, on 11/25/2016 15:58 .R/
[2016-11-25] MEDS ORDERED: LIDOCAINE/MYLANTA 40 ML BTL PO ONE (16:00)
[2016-11-25 16:35] VITALS: BP 141/82; PULSE 81; RESP 16; TEMP 98.6
--- NOTE | 2016-11-25 16:43 | ERD ---
ER Documentation Chief Complaint Date/Time DATE: 11/25/16 TIME: 16:37 Chief Complaint Pt BIB by [facility] 100 for unable to sleep, CP and anxiety. HPI This 56-year-old male comes emergency room complaining of left foot pain. States that he has had this pain for 3 days, but has not struck his foot on anything and had no new trauma. Also complains of chest pain that he gets after he eats this been going on for the last 2 days. States he has had this pain before. Denies shortness of breath. Denies nausea vomiting. Has not had any fevers and chills lately. Bedside Mongolian field operations technician was used. ROS All systems reviewed and are negative except as per history of present illness. Medications Home Meds Active Scripts Ranitidine Hcl* (Zantac*) 150 Mg Tablet, 150 MG PO BID, #60 TAB Prov:EDGARYEMI 11/25/16 Naproxen* (Naproxen*) 500 Mg Tablet, 500 MG PO BID Y for PAIN, #10 TAB Prov:EDGARYEMI 11/25/16 Cephalexin* (Keflex*) 500 Mg Capsule, 500 MG PO Q8, #30 CAP Prov:EDGARYEMI 11/25/16 Sulfamethoxazole/Trimethoprim* (Bactrim Ds* Tablet) 1 Each Tablet, 1 TAB PO BID , #20 TAB Prov:YEMI HERNÁNDEZ 11/25/16 Polyethylene Glycol* (Miralax*) 17 Gm Powd.pack, 17 GM PO DAILY, #30 PACKET Prov:KATINA MACARIO MD 08/29/16 Sennosides* (Senna Lax*) 8.6 Mg Tablet, 1 TAB PO BID for 30 Days, TAB Prov:KATINA MACARIO MD 08/29/16 Ciprofloxacin Hcl* (Ciprofloxacin Hcl*) 500 Mg Tablet, 500 MG PO BID for 7 Days , TAB Prov:RAHEEM KENDALL MD 08/29/16 Albuterol Sulfate* (Proair HFA*) 8.5 Gm Hfa.aer.ad, 2 PUFF INH Q4, #1 INHALER Prov:PARKER WEI PA-C 06/21/16 Ibuprofen* (Motrin*) 600 Mg Tab, 600 MG PO Q6H Y for PAIN AND OR ELEVATED TEMP, #15 TAB Prov:ABE MOORE MD 06/16/16 Sitagliptin* (Januvia*) 100 Mg Tab, 100 MG PO DAILY for 30 Days Prov:CARLOSLISSY 02/04/15 Reported Medications Insulin Glargine* (Lantus*) 100 Unit/Ml Soln, 20 UNIT SC DAILY, #1 VIAL 06/10/16 Tramadol Hcl* (Ultram*) 50 Mg Tablet, 50 MG PO TID Y for PAIN, TAB 03/30/16 Gabapentin* (Gabapentin*) 300 Mg Capsule, 300 MG PO TID, #90 CAP 03/16/16 Amitriptyline Hcl* (Amitriptyline Hcl*) 25 Mg Tablet, 25 MG PO QHS, #30 TAB 03/16/16 Clopidogrel Bisulfate (Clopidogrel) 75 Mg Tablet, 75 MG PO DAILY, #30 TAB 12/22/15 Zolpidem Tartrate* (Zolpidem Tartrate*) 10 Mg Tablet, 10 MG PO QHS Y for INSOMNIA, #30 TAB 12/22/15 Glimepiride* (Amaryl*) 1 Mg Tablet, 1 MG PO WITH BREAKFAST, TAB 03/19/15 Metformin Hcl* (Metformin Hcl*) 1,000 Mg Tablet, 1000 MG PO BID WITH MEALS, TAB 03/19/15 Atorvastatin Calcium* (Atorvastatin Calcium*) 20 Mg Tablet, 20 MG PO HS, TAB 03/19/15 Lisinopril* (Lisinopril*) 20 Mg Tablet, 20 MG PO DAILY, TAB 09/29/14 Atenolol* (Atenolol*) 50 Mg Tablet, 50 MG PO DAILY, TAB 09/29/14 Allergies Allergies: Coded Allergies: No Known Allergy (Unverified , 08/29/16) BECAUSE THE PATIENT ON DIALYSIS HE HAS CATHY ADVERSE REACTION TO BACTRIM,IBUPROFEN BUT HE CAN TAKE ASPIRIN PMhx/Soc History of Surgery: Yes (Cardiac stents) Anesthesia Reaction: No Hx Respiratory Disorders: Yes (resp failure, likely 2/2 smoking, asthma, bronchitis) Hx Cardiac Disorders: Yes (cad, htn) Hx Miscellaneous Medical Probl: Yes (DAXA, GLAUCOMA, MORBID OBESITY) Hx Alcohol Use: Yes Hx Substance Use: Yes Hx Tobacco Use: Yes (2 ppd) Smoking Status: Never smoker Physical Exam Vitals Vital Signs Date Time Temp Pulse Resp B/P Pulse Ox O2 Delivery O2 Flow Rate FiO2 11/25/16 16:35 98.6 81 16 141/82 97 Room Air 11/25/16 14:51 98 88 96 21 11/25/16 13:25 2 11/25/16 13:10 98.6 84 18 144/86 98 Physical Exam Const: [] No distress Head: Atraumatic Eyes: Normal Conjunctiva ENT: Normal External Ears, Nose and Mouth. Neck: Full range of motion..~ No meningismus. Resp: Clear to auscultation bilaterally Cardio: Regular rate and rhythm, no murmurs Abd: Soft, non tender, non distended. Normal bowel sounds Skin: No petechiae or rashes Back: No midline or flank tenderness Ext: No cyanosis, or edema, left great toe with erythema and no color Neur: Awake and alert and oriented 3, no focal deficits Psych: Normal Mood and Affect Result Diagram: 11/25/16 1310 11/25/16 1310 Results 24 hrs Laboratory Tests Test 11/25/16 13:10 White Blood Count 7.810^3/ul Red Blood Count 4.9110^6/ul Hemoglobin 13.6g/dl Hematocrit 41.2% Mean Corpuscular Volume 83.9fl Mean Corpuscular Hemoglobin 27.7pg Mean Corpuscular Hemoglobin Concent 33.0g/dl Red Cell Distribution Width 16.0% Platelet Count 47342^3/UL Mean Platelet Volume 10.0fl Neutrophils % 70.5% Lymphocytes % 20.6% Monocytes % 6.8% Eosinophils % 1.3% Basophils % 0.4% Nucleated Red Blood Cells % 0.0/100WBC Neutrophils # 5.510^3/ul Lymphocytes # 1.610^3/ul Monocytes # 0.510^3/ul Eosinophils # 0.110^3/ul Basophils # 0.010^3/ul Nucleated Red Blood Cells # 0.010^3/ul Prothrombin Time 12.0Sec Prothrombin Time Ratio 0.9 INR International Normalized Ratio 0.89 Activated Partial Thromboplast Time 27.5Sec Sodium Level 137mmol/L Potassium Level 4.3mmol/L Chloride Level 98mmol/L Carbon Dioxide Level 29mmol/L Anion Gap 14 Blood Urea Nitrogen 23mg/dl Creatinine 0.76mg/dl Glucose Level 167mg/dl Calcium Level 9.1mg/dl Troponin I < 0.012ng/ml Current Medications Medications (Trade) Dose Ordered Sig/Stephanie Route PRN Reason Start Time Stop Time Status Last Admin Dose Admin Aspirin (Aspirin) 325 mg ONCE STAT PO 11/25/16 13:20 11/25/16 13:21 DC 11/25/16 13:45 Albuterol (Proventil 0.083% (Neb)) 5 mg ONCE STAT HHN 11/25/16 14:22 11/25/16 14:23 DC 11/25/16 14:50 Ipratropium [place] (Atrovent 0.02% (Neb)) 0.5 mg ONCE ONCE HHN 11/25/16 14:30 11/25/16 14:32 DC 11/25/16 14:50 Ketorolac Tromethamine (Toradol) 30 mg ONCE STAT IV 11/25/16 15:19 11/25/16 15:21 DC 11/25/16 15:48 Miscellaneous Medication (Gi Cocktail (2)) 40 ml ONCE ONCE PO 11/25/16 16:00 11/25/16 16:01 DC 11/25/16 16:05 Procedures/MDM Left great toe cellulitis as well as atypical chest pain in a 56-year-old male. Patient has negative troponin after 2 days of chest pain. Chest pain was not affected by aspirin but then the patient was given a GI cocktail which alleviated his pain. Patient does has risk factors for coronary chest pain but is currently asymptomatic except for his left great toe pain which was improved greatly with Toradol. Does appear to have mild cellulitis with an x-ray showing no bony erosion and no fractures. Patient is very ambulatory in spite of being told to stay in his bed is ambulated to the nursing station multiple times during his visit without any difficulty. Going to discharge with primary care follow-up as well as Bactrim and Keflex for his great toe infection. Also giving naproxen for pain. Discharging with Zantac as well as his chest pain may be related to GERD. Still encouraging him to see his doctor and arrange for an outpatient echocardiogram. Telling return to the emergency room if his chest pain returns at all. EKG interpretation: Normal sinus rhythm rate of 84, right bundle branch block, right axis deviation, nonspecific ST-T wave abnormality. pharmacy account director interpretation: Normal sinus rhythm without arrhythmia Chest x-ray interpretation: I see no acute process. I see no pulmonary edema, no infiltrates, no pneumothorax, no fractures. X-ray essentially unchanged from prior x-ray in July. Departure Diagnosis: Primary Impression: Cellulitis of foot, left Additional Impression: Chest pain Condition: Stable Patient Instructions: Cellulitis, Chest Pain, Uncertain Cause Additional Instructions: Call your primary care doctor TOMORROW for an appointment during the next 2-3 days.See the doctor sooner or return here if your condition worsens before your appointment time. YEMI HERNÁNDEZ DO November 25, 2016 16:43
== END 2016-11-25 18:05 | disposition home or self-care (01) ==
LOC: E/R 12:42
DX: L03.116 Cellulitis of left lower limb (principal); E11.9 Type 2 diabetes mellitus without complications; I10 Essential (primary) hypertension; I25.10 Atherosclerotic heart disease of native coronary artery without angina pectoris; F17.210 Nicotine dependence, cigarettes, uncomplicated; J45.909 Unspecified asthma, uncomplicated; E66.01 Morbid (severe) obesity due to excess calories; Z79.4 Long term (current) use of insulin; Z79.84 Long term (current) use of oral hypoglycemic drugs; Z98.61 Coronary angioplasty status; Z68.36 Body mass index [BMI] 36.0-36.9, adult; Z79.01 Long term (current) use of anticoagulants
CPT/HCPCS: 36415; 71010; 73630; 80048; 84484; 85025; 85610; 85730; 93005; 94664; 96374; J1885; Z7502; Z7610

== ENCOUNTER 2016-11-26 13:12 | Emergency (ER) | payer OTHER ==
[~2016-11-26] VITALS: Ht 152.4 cm; Wt 75.0 kg
[~2016-11-26 13:12] MED LIST changes: +CEPH-443 PO; +NAPR-688 PO; +RANI150T9 PO; +SULF1TAB31 PO
[2016-11-26] MEDS ORDERED: HYDROCODONE/APAP (10/325) TAB PO ONE (13:30)
--- NOTE | 2016-11-26 13:33 | ERD ---
ER Documentation Chief Complaint Date/Time DATE: 11/26/16 TIME: 13:30 Chief Complaint HPI Patient is a 56-year-old male with frequent ER visits for chest pain and extremity pain, who presents to the ER with complaint of left-sided chest pressure since this morning as well as bilateral foot pain, left greater than right. Patient was seen in the ER yesterday for the same complaints, and was discharged with a prescription for antibiotics for cellulitis of the great toe. His chest pain was felt to be atypical, and the patient has had previous negative chest pain workups. The patient denies shortness of breath, denies fever, denies cough. ROS All systems reviewed and are negative except as per history of present illness. Medications Home Meds Active Scripts Ranitidine Hcl* (Zantac*) 150 Mg Tablet, 150 MG PO BID, #60 TAB Prov:EDGARYEMI 11/25/16 Naproxen* (Naproxen*) 500 Mg Tablet, 500 MG PO BID Y for PAIN, #10 TAB Prov:EDGARYEMI DO 11/25/16 Cephalexin* (Keflex*) 500 Mg Capsule, 500 MG PO Q8, #30 CAP Prov:EDGARYEMIMERLE CAVAZOS 11/25/16 Sulfamethoxazole/Trimethoprim* (Bactrim Ds* Tablet) 1 Each Tablet, 1 TAB PO BID , #20 TAB Prov:EDGARYEMI 11/25/16 Polyethylene Glycol* (Miralax*) 17 Gm Powd.pack, 17 GM PO DAILY, #30 PACKET Prov:KATINA MACARIO MD 08/29/16 Sennosides* (Senna Lax*) 8.6 Mg Tablet, 1 TAB PO BID for 30 Days, TAB Prov:KATINA MACARIO MD 08/29/16 Ciprofloxacin Hcl* (Ciprofloxacin Hcl*) 500 Mg Tablet, 500 MG PO BID for 7 Days , TAB Prov:RAHEEM KENDALL MD 08/29/16 Albuterol Sulfate* (Proair HFA*) 8.5 Gm Hfa.aer.ad, 2 PUFF INH Q4, #1 INHALER Prov:PARKER WEI PA-C 06/21/16 Ibuprofen* (Motrin*) 600 Mg Tab, 600 MG PO Q6H Y for PAIN AND OR ELEVATED TEMP, #15 TAB Prov:ABE MOORE MD 06/16/16 Sitagliptin* (Januvia*) 100 Mg Tab, 100 MG PO DAILY for 30 Days Prov:LISSY GONZALEZ 02/04/15 Reported Medications Insulin Glargine* (Lantus*) 100 Unit/Ml Soln, 20 UNIT SC DAILY, #1 VIAL 06/10/16 Tramadol Hcl* (Ultram*) 50 Mg Tablet, 50 MG PO TID Y for PAIN, TAB 03/30/16 Gabapentin* (Gabapentin*) 300 Mg Capsule, 300 MG PO TID, #90 CAP 03/16/16 Amitriptyline Hcl* (Amitriptyline Hcl*) 25 Mg Tablet, 25 MG PO QHS, #30 TAB 03/16/16 Clopidogrel Bisulfate (Clopidogrel) 75 Mg Tablet, 75 MG PO DAILY, #30 TAB 12/22/15 Zolpidem Tartrate* (Zolpidem Tartrate*) 10 Mg Tablet, 10 MG PO QHS Y for INSOMNIA, #30 TAB 12/22/15 Glimepiride* (Amaryl*) 1 Mg Tablet, 1 MG PO WITH BREAKFAST, TAB 03/19/15 Metformin Hcl* (Metformin Hcl*) 1,000 Mg Tablet, 1000 MG PO BID WITH MEALS, TAB 03/19/15 Atorvastatin Calcium* (Atorvastatin Calcium*) 20 Mg Tablet, 20 MG PO HS, TAB 03/19/15 Lisinopril* (Lisinopril*) 20 Mg Tablet, 20 MG PO DAILY, TAB 09/29/14 Atenolol* (Atenolol*) 50 Mg Tablet, 50 MG PO DAILY, TAB 09/29/14 Allergies Allergies: Coded Allergies: No Known Allergy (Unverified , 11/26/16) BECAUSE THE PATIENT ON DIALYSIS HE HAS CATHY ADVERSE REACTION TO BACTRIM,IBUPROFEN BUT HE CAN TAKE ASPIRIN PMhx/Soc Past medical history: Diabetes, neuropathy Past surgical history: Frank in left leg Social history: Denies tobacco or alcohol. Lives alone with caregiver. History of Surgery: Yes (Cardiac stents) Anesthesia Reaction: No Hx Respiratory Disorders: Yes (resp failure, likely 2/2 smoking, asthma, bronchitis) Hx Cardiac Disorders: Yes (cad, htn) Hx Miscellaneous Medical Probl: Yes (DAXA, GLAUCOMA, MORBID OBESITY) Hx Alcohol Use: Yes Hx Substance Use: Yes Hx Tobacco Use: Yes (2 ppd) FmHx Family History: No coronary disease, No diabetes Physical Exam Vitals Vital Signs Date Time Temp Pulse Resp B/P Pulse Ox O2 Delivery O2 Flow Rate FiO2 11/26/16 13:45 98.0 72 18 142/68 99 Physical Exam Const: Alert, no acute distress Head: Atraumatic Eyes: Normal Conjunctiva, no pallor, no icterus ENT: Normal External Ears, Nose and Mouth. Mucous membranes moist Neck: Full range of motion..~ No meningismus. No JVD Resp: Clear to auscultation bilaterally, no wheezes, no rales Cardio: Regular rate and rhythm, no murmurs Abd: Soft, non tender, non distended. Normal bowel sounds Skin: No petechiae or rashes Back: No midline or flank tenderness Ext: No cyanosis, trace edema bilateral ankles, symmetric; minimal erythema to left great toe, 2 second cap refill, no significant color change, no bulla Neur: Awake and alert, cranial nerves II through XII intact bilaterally, strength and sensation full in 4 extremities. Psych: Normal Mood and Affect Results 24 hrs Laboratory Tests Test 11/26/16 13:26 Troponin I < 0.012ng/ml Current Medications Medications (Trade) Dose Ordered Sig/Stephanie Route PRN Reason Start Time Stop Time Status Last Admin Dose Admin Acetaminophen/ Hydrocodone Bitart ([place] (10/325)) 1 tab ONCE ONCE PO 11/26/16 13:30 11/26/16 13:31 DC 11/26/16 13:56 Procedures/MDM EKG read by me: Time 1327, rate 91 Rhythm: Normal sinus [place]: Rightward axis Intervals: Right bundle branch block ST-T waves: Nonspecific changes likely associated with bundle branch block Ectopy: No Q-waves: No Impression: Right bundle branch block, no obvious evidence of ischemia MDM: Patient is a 56-year-old male seen in the ER yesterday for extremity pain and chest pain. The patient returns today with the same symptoms. He was prescribed antibiotics for cellulitis to the great toe on the left. On exam there is very minimal residual cellulitis, no signs of vascular insufficiency, no signs of necrotizing infection, no signs of DVT. The patient has peripheral neuropathy, which I believe is the cause of his chronic pain which she has sought care for her in the ER multiple times. With regard to the patient's chest pain, he reports that he is now had approximately 5 hours of constant pain. His EKG is nonischemic and his troponin is not elevated. The patient has had multiple prior workups for chest pain that have all been unremarkable. Patient has normal vital signs and a normal heart and lung exam. I have advised him to return to the ER for worsening symptoms, and to follow-up closely with his PMD for further outpatient workup as indicated. Departure Diagnosis: Primary Impression: Atypical chest pain Additional Impression: Chronic lower limb pain Laterality: left Qualified Code: M79.605 - Chronic pain of left lower extremity Condition: Stable LAVINIA SAINI MD November 26, 2016 13:33
[2016-11-26 13:45] VITALS: Ht 152.4 cm; Wt 75.0 kg
== END 2016-11-26 16:15 | disposition home or self-care (01) ==
LOC: E/R 13:12
DX: R07.89 Other chest pain (principal); M79.605 Pain in left leg; E11.9 Type 2 diabetes mellitus without complications; J45.909 Unspecified asthma, uncomplicated; I10 Essential (primary) hypertension; I25.10 Atherosclerotic heart disease of native coronary artery without angina pectoris; F17.210 Nicotine dependence, cigarettes, uncomplicated; E66.01 Morbid (severe) obesity due to excess calories; Z79.4 Long term (current) use of insulin; Z79.84 Long term (current) use of oral hypoglycemic drugs; Z68.32 Body mass index [BMI] 32.0-32.9, adult; Z98.61 Coronary angioplasty status
CPT/HCPCS: 84484; 93005; Z7502; Z7610

== ENCOUNTER 2016-12-14 21:30 | Emergency (ER) | payer OTHER ==
[~2016-12-14] VITALS: Ht 157.5 cm; Wt 75.0 kg
[2016-12-14 21:31] VITALS: Ht 157.5 cm; Wt 75.0 kg
--- NOTE | 2016-12-14 21:39 | ERD ---
ER Documentation Chief Complaint Date/Time DATE: 12/14/16 TIME: 21:36 Chief Complaint HPI 56-year-old male presents to the emergency room for medical screening examination. It is unclear why the patient called 911. The patient lives alone and smokes regularly. He is a regular patient of the emergency department. It appears that the patient states that he was lonely and called 911. The patient denies any chest pain shortness of breath fevers or chills. He is asking for a sandwich upon arrival. He denies suicidal thoughts. He states that he would like to go home. ROS All systems reviewed and are negative except as per history of present illness. Medications Home Meds Active Scripts Ranitidine Hcl* (Zantac*) 150 Mg Tablet, 150 MG PO BID, #60 TAB Prov:EDGARYEMI DO 11/25/16 Naproxen* (Naproxen*) 500 Mg Tablet, 500 MG PO BID Y for PAIN, #10 TAB Prov:YEMI HERNÁNDEZ DO 11/25/16 Cephalexin* (Keflex*) 500 Mg Capsule, 500 MG PO Q8, #30 CAP Prov:EDGARYEMIMERLE CAVAZOS 11/25/16 Sulfamethoxazole/Trimethoprim* (Bactrim Ds* Tablet) 1 Each Tablet, 1 TAB PO BID , #20 TAB Prov:EDGARYEMI 11/25/16 Polyethylene Glycol* (Miralax*) 17 Gm Powd.pack, 17 GM PO DAILY, #30 PACKET Prov:KATINA MACARIO MD 08/29/16 Sennosides* (Senna Lax*) 8.6 Mg Tablet, 1 TAB PO BID for 30 Days, TAB Prov:KATINA MACARIO MD 08/29/16 Ciprofloxacin Hcl* (Ciprofloxacin Hcl*) 500 Mg Tablet, 500 MG PO BID for 7 Days , TAB Prov:RAHEEM KENDALL MD 08/29/16 Albuterol Sulfate* (Proair HFA*) 8.5 Gm Hfa.aer.ad, 2 PUFF INH Q4, #1 INHALER Prov:PARKER WEI PA-C 06/21/16 Ibuprofen* (Motrin*) 600 Mg Tab, 600 MG PO Q6H Y for PAIN AND OR ELEVATED TEMP, #15 TAB Prov:ABE MOORE MD 06/16/16 Sitagliptin* (Januvia*) 100 Mg Tab, 100 MG PO DAILY for 30 Days Prov:LISSY GONZALEZ 02/04/15 Reported Medications Insulin Glargine* (Lantus*) 100 Unit/Ml Soln, 20 UNIT SC DAILY, #1 VIAL 06/10/16 Tramadol Hcl* (Ultram*) 50 Mg Tablet, 50 MG PO TID Y for PAIN, TAB 03/30/16 Gabapentin* (Gabapentin*) 300 Mg Capsule, 300 MG PO TID, #90 CAP 03/16/16 Amitriptyline Hcl* (Amitriptyline Hcl*) 25 Mg Tablet, 25 MG PO QHS, #30 TAB 03/16/16 Clopidogrel Bisulfate (Clopidogrel) 75 Mg Tablet, 75 MG PO DAILY, #30 TAB 12/22/15 Zolpidem Tartrate* (Zolpidem Tartrate*) 10 Mg Tablet, 10 MG PO QHS Y for INSOMNIA, #30 TAB 12/22/15 Glimepiride* (Amaryl*) 1 Mg Tablet, 1 MG PO WITH BREAKFAST, TAB 03/19/15 Metformin Hcl* (Metformin Hcl*) 1,000 Mg Tablet, 1000 MG PO BID WITH MEALS, TAB 03/19/15 Atorvastatin Calcium* (Atorvastatin Calcium*) 20 Mg Tablet, 20 MG PO HS, TAB 03/19/15 Lisinopril* (Lisinopril*) 20 Mg Tablet, 20 MG PO DAILY, TAB 09/29/14 Atenolol* (Atenolol*) 50 Mg Tablet, 50 MG PO DAILY, TAB 09/29/14 Allergies Allergies: Coded Allergies: No Known Allergy (Unverified , 11/26/16) BECAUSE THE PATIENT ON DIALYSIS HE HAS CATHY ADVERSE REACTION TO BACTRIM,IBUPROFEN BUT HE CAN TAKE ASPIRIN PMhx/Soc History of Surgery: Yes (Cardiac stents) Anesthesia Reaction: No Hx Respiratory Disorders: Yes (resp failure, likely 2/2 smoking, asthma, bronchitis) Hx Cardiac Disorders: Yes (cad, htn) Hx Miscellaneous Medical Probl: Yes (DAXA, GLAUCOMA, MORBID OBESITY) Hx Alcohol Use: Yes Hx Substance Use: Yes Hx Tobacco Use: Yes (2 ppd) FmHx Family History: No diabetes Physical Exam Vitals Vital Signs Date Time Temp Pulse Resp B/P Pulse Ox O2 Delivery O2 Flow Rate FiO2 12/14/16 21:31 97.8 66 18 120/77 96 Physical Exam General: Well developed, well nourished, no acute distress Head: Normocephalic, atraumatic. Eyes: Pupils equally reactive, EOM intact ENT: Moist mucous membranes Neck: Supple, no lymphadenopathy Respiratory: Scant wheeze but no respiratory distress, good aeration Cardiovascular: RRR, no murmurs, rubs, or gallops Abdominal: Soft, non-tender, non-distended, no peritoneal signs : Deferred MSK: No edema, no unilateral swelling, 5/5 strength Neurologic: Alert and oriented, moving all extremities, normal speech, no focal weakness, no cerebellar signs Skin: No rash Psych: Normal mood Procedures/MDM MEDICAL DECISION MAKING: The patient presents with no acute complaints. He is asking for a sandwich and asking to go home. The patient has scant wheezing that is at his baseline. The patient has chronic COPD and smokes 2 packs a day. He has no evidence of COPD exacerbation. The patient has no evidence of acute organic medical condition. No suicidal thoughts. The patient has keys to his home and will be discharged from the emergency department. I kept the patient and/or family informed of laboratory and diagnostic imaging results throughout the emergency room course. DISPOSITION PLAN: We discussed follow up with the patient's primary care doctor within 24 to 48 hours as needed. We also discussed return to the emergency room for worsening symptoms or worsening condition. Outpatient referral: [None required] Departure Diagnosis: Primary Impression: Encounter for medical screening examination Condition: Stable Patient Instructions: Medical Screening Exam, Nonurgent Referrals: [facility] YOU HAVE RECEIVED A MEDICAL SCREENING EXAM AND THE RESULTS INDICATE THAT YOU DO NOT HAVE A CONDITION THAT REQUIRES URGENT TREATMENT IN THE EMERGENCY DEPARTMENT. FURTHER EVALUATION AND TREATMENT OF YOUR CONDITION CAN WAIT UNTIL YOU ARE SEEN IN YOUR DOCTORS OFFICE WITHIN THE NEXT 1-2 DAYS. IT IS YOUR RESPONSIBILITY TO MAKE AN APPOINTMENT FOR FOLOW-UP CARE. IF YOU HAVE A PRIMARY DOCTOR --you should call your primary doctor and schedule an appointment IF YOU DO NOT HAVE A PRIMARY DOCTOR YOU CAN CALL OUR PHYSICIAN REFERRAL HOTLINE AT IF YOU CAN NOT AFFORD TO SEE A PHYSICIAN YOU CAN CHOSE FROM THE FOLLOWING [facility] [address] [facility]. [facility] [address] [facility] [facility] [address] [facility] [address] [facility] [address] [facility]. [facility]. [address] [facility]. [facility] YOU HAVE RECEIVED A MEDICAL SCREENING EXAM AND THE RESULTS INDICATE THAT YOU DO NOT HAVE A CONDITION THAT REQUIRES URGENT TREATMENT IN THE EMERGENCY DEPARTMENT. FURTHER EVALUATION AND TREATMENT OF YOUR CONDITION CAN WAIT UNTIL YOU ARE SEEN IN YOUR DOCTORS OFFICE WITHIN THE NEXT 1-2 DAYS. IT IS YOUR RESPONSIBILITY TO MAKE AN APPOINTMENT FOR FOLOW-UP CARE. IF YOU HAVE A PRIMARY DOCTOR --you should call your primary doctor and schedule and appointment IF YOU DO NOT HAVE A PRIMARY DOCTOR YOU CAN CALL OUR PHYSICIAN REFERRAL HOTLINE AT . IF YOU CAN NOT AFFORD TO SEE A PHYSICIAN YOU CAN CHOSE FROM THE FOLLOWING [facility] INSTITUTIONS: [facility] [address] [place] [address] [facility] [address] [place] [address] [facility] [address] [place] [address] Additional Instructions: Call your primary care doctor TOMORROW for an appointment during the next 1 WEEK.Tell the shift mgr that you were referred from this facility.See the doctor sooner or return here if your condition worsens before your appointment time. ANDREA CARMONA MD December 14, 2016 21:39
== END 2016-12-14 21:40 | disposition home or self-care (01) ==
LOC: E/R 21:30
DX: Z00.00 Encounter for general adult medical examination without abnormal findings (principal); I10 Essential (primary) hypertension; J45.909 Unspecified asthma, uncomplicated; I25.10 Atherosclerotic heart disease of native coronary artery without angina pectoris; E66.01 Morbid (severe) obesity due to excess calories; F17.210 Nicotine dependence, cigarettes, uncomplicated; Z68.30 Body mass index [BMI] 30.0-30.9, adult; Z79.4 Long term (current) use of insulin; Z79.84 Long term (current) use of oral hypoglycemic drugs; Z98.61 Coronary angioplasty status
CPT/HCPCS: 99282

== ENCOUNTER 2016-12-16 15:57 | Emergency (ER) | payer OTHER ==
[~2016-12-16] VITALS: Ht 180.3 cm; Wt 113.6 kg
[2016-12-16 16:00] VITALS: Ht 180.3 cm; Wt 113.6 kg
[2016-12-16] MEDS ORDERED: TRAM50TA2 PO (17:55)
[2016-12-16] MEDS ORDERED: METF500T4 PO (17:57)
--- NOTE | 2016-12-16 18:02 | ERD ---
ER Documentation Chief Complaint Date/Time DATE: 12/16/16 TIME: 17:58 Chief Complaint 7 left foot pain x 1 week HPI Patient is a 56-year-old male who is here complaining of nontraumatic pain in his left foot that he has had for about 1 week. Denies fever. Denies numbness or tingling. Takes tramadol at home for the pain. He is ambulatory with a cane which is his baseline. Pain is throbbing in nature. ROS All systems reviewed and are negative except as per history of present illness. Medications Home Meds Active Scripts Metformin* (Glucophage*) 500 Mg Tab, 500 MG PO DAILY, #20 TAB Prov:ANA DAI PA-C 12/16/16 Tramadol HCl (Tramadol HCl) 50 Mg Tablet, 50 MG PO Q4 Y for PAIN, #20 TAB Prov:ANA DAI PA-C 12/16/16 Ranitidine Hcl* (Zantac*) 150 Mg Tablet, 150 MG PO BID, #60 TAB Prov:YEMI HERNÁNDEZ DO 11/25/16 Naproxen* (Naproxen*) 500 Mg Tablet, 500 MG PO BID Y for PAIN, #10 TAB Prov:YEIM HERNÁNDEZ DO 11/25/16 Cephalexin* (Keflex*) 500 Mg Capsule, 500 MG PO Q8, #30 CAP Prov:YEMI HERNÁNDEZ DO 11/25/16 Sulfamethoxazole/Trimethoprim* (Bactrim Ds* Tablet) 1 Each Tablet, 1 TAB PO BID , #20 TAB Prov:EDGARYEMI DO 11/25/16 Polyethylene Glycol* (Miralax*) 17 Gm Powd.pack, 17 GM PO DAILY, #30 PACKET Prov:KATINA MACARIO MD 08/29/16 Sennosides* (Senna Lax*) 8.6 Mg Tablet, 1 TAB PO BID for 30 Days, TAB Prov:KATINA MACARIO MD 08/29/16 Ciprofloxacin Hcl* (Ciprofloxacin Hcl*) 500 Mg Tablet, 500 MG PO BID for 7 Days , TAB Prov:RAHEEM KENDALL MD 08/29/16 Albuterol Sulfate* (Proair HFA*) 8.5 Gm Hfa.aer.ad, 2 PUFF INH Q4, #1 INHALER Prov:PARKER WEI PA-C 06/21/16 Ibuprofen* (Motrin*) 600 Mg Tab, 600 MG PO Q6H Y for PAIN AND OR ELEVATED TEMP, #15 TAB Prov:ABE MOORE MD 06/16/16 Sitagliptin* (Januvia*) 100 Mg Tab, 100 MG PO DAILY for 30 Days Prov:CARLOSLISSY 02/04/15 Reported Medications Insulin Glargine* (Lantus*) 100 Unit/Ml Soln, 20 UNIT SC DAILY, #1 VIAL 06/10/16 Tramadol Hcl* (Ultram*) 50 Mg Tablet, 50 MG PO TID Y for PAIN, TAB 03/30/16 Gabapentin* (Gabapentin*) 300 Mg Capsule, 300 MG PO TID, #90 CAP 03/16/16 Amitriptyline Hcl* (Amitriptyline Hcl*) 25 Mg Tablet, 25 MG PO QHS, #30 TAB 03/16/16 Clopidogrel Bisulfate (Clopidogrel) 75 Mg Tablet, 75 MG PO DAILY, #30 TAB 12/22/15 Zolpidem Tartrate* (Zolpidem Tartrate*) 10 Mg Tablet, 10 MG PO QHS Y for INSOMNIA, #30 TAB 12/22/15 Glimepiride* (Amaryl*) 1 Mg Tablet, 1 MG PO WITH BREAKFAST, TAB 03/19/15 Metformin Hcl* (Metformin Hcl*) 1,000 Mg Tablet, 1000 MG PO BID WITH MEALS, TAB 03/19/15 Atorvastatin Calcium* (Atorvastatin Calcium*) 20 Mg Tablet, 20 MG PO HS, TAB 03/19/15 Lisinopril* (Lisinopril*) 20 Mg Tablet, 20 MG PO DAILY, TAB 09/29/14 Atenolol* (Atenolol*) 50 Mg Tablet, 50 MG PO DAILY, TAB 09/29/14 Allergies Allergies: Coded Allergies: No Known Allergy (Unverified , 11/26/16) BECAUSE THE PATIENT ON DIALYSIS HE HAS CATHY ADVERSE REACTION TO BACTRIM,IBUPROFEN BUT HE CAN TAKE ASPIRIN PMhx/Soc History of Surgery: Yes (Cardiac stents) Anesthesia Reaction: No Hx Respiratory Disorders: Yes (resp failure, likely 2/2 smoking, asthma, bronchitis) Hx Cardiac Disorders: Yes (cad, htn) Hx Miscellaneous Medical Probl: Yes (DAXA, GLAUCOMA, MORBID OBESITY) Hx Alcohol Use: Yes Hx Substance Use: Yes Hx Tobacco Use: Yes (2 ppd) FmHx Family History: No diabetes Physical Exam Vitals Vital Signs Date Time Temp Pulse Resp B/P Pulse Ox O2 Delivery O2 Flow Rate FiO2 12/16/16 16:00 98.2 70 18 115/67 95 Physical Exam General: well developed, well nourished, alert, nontoxic, no distress Head: normocephalic, atraumatic Neck: Supple, nontender, no lymphadenopathy, no midline tenderness Respiratory: Clear to auscaultation bilaterally, speaks in full sentences, no use of accesory muscles or labored breathing, no rales, ronchi, or wheezing Cardiovascular: RRR, No murmurs Back: no midline tenderness, no step offs or bony abnormalities, sensation to light touch in tact Extremities: Left foot: Full range of motion, ambulatory, pedal pulse 2+, no bony abnormalities, capillary refill less than 2 seconds, nontender throughout, no erythema or edema, no pitting edema in the bilateral lower extremities Procedures/MDM 56-year-old male presents with foot pain most likely musculoskeletal versus gout. No evidence of cellulitis or infection. He takes tramadol at home but states it does not help. I give him a small amount of [place]. His vital signs are normal. He is well-appearing in no distress. He is ambulatory with a cane which is his baseline. He is neurovascularly intact. There is no trauma warranting imaging. Recommended this patient follow up with her primary care doctor within 48 hours or return to the emergency room for any worsening of symptoms. However this time I do believe there is suitable for outpatient management. I answered all their questions and they agreed with the plan and were discharged home. Departure Diagnosis: Primary Impression: Foot pain Condition: Stable Patient Instructions: Treating Gout Attacks Additional Instructions: Call your primary care doctor TOMORROW for an appointment during the next 1-2 days.See the doctor sooner or return here if your condition worsens before your appointment time. ANA DAI PA-C Dec 16, 2016 18:02
[2016-12-16] MEDS ORDERED: HYDR-906 PO (18:03)
== END 2016-12-16 18:00 | disposition home or self-care (01) ==
LOC: FTE 15:57
DX: M79.672 Pain in left foot (principal); F17.210 Nicotine dependence, cigarettes, uncomplicated; I10 Essential (primary) hypertension; I25.10 Atherosclerotic heart disease of native coronary artery without angina pectoris; E66.01 Morbid (severe) obesity due to excess calories; J45.909 Unspecified asthma, uncomplicated; E11.9 Type 2 diabetes mellitus without complications; Z68.34 Body mass index [BMI] 34.0-34.9, adult; Z79.84 Long term (current) use of oral hypoglycemic drugs; Z79.4 Long term (current) use of insulin; Z98.61 Coronary angioplasty status
CPT/HCPCS: 99284

== ENCOUNTER 2016-12-18 16:11 | Emergency (ER) | payer OTHER ==
[~2016-12-18] VITALS: Ht 180.3 cm; Wt 110.0 kg
[~2016-12-18 16:11] MED LIST changes: +HYDR-906 PO; +METF500T4 PO; +TRAM50TA2 PO
[2016-12-18 16:30] VITALS: Ht 180.3 cm; Wt 110.0 kg
[2016-12-18 17:03] VITALS: BP 135/70; PULSE 71; RESP 19; TEMP 98.6
--- NOTE | 2016-12-18 17:27 | ERD ---
ER Documentation Chief Complaint Date/Time DATE: 12/18/16 TIME: 17:25 Chief Complaint BIB RA FOR EVAL OF ANXIETY EPISODE. 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 The patient called 911 because he was complaining of shortness of breath while smoking. The patient arrives and is yelling and screaming that he needs to use the bathroom. After this the patient is comfortable and states that he is hungry and wants something to drink. He has no other complaints. He denies any chest pain, no pleuritic pain no fevers chills or cough. ROS All systems reviewed and are negative except as per history of present illness. Medications Home Meds Active Scripts Hydrocodone/Acetaminophen (Acosta 5-325 Tablet) 1 Each Tablet, 1 TAB PO Q6H Y for PAIN, #20 TAB Prov:ANA DAI PA-C 12/16/16 Metformin* (Glucophage*) 500 Mg Tab, 500 MG PO DAILY, #20 TAB Prov:ANA DAI PA-C 12/16/16 Tramadol HCl (Tramadol HCl) 50 Mg Tablet, 50 MG PO Q4 Y for PAIN, #20 TAB Prov:ANA DAI PA-C 12/16/16 Ranitidine Hcl* (Zantac*) 150 Mg Tablet, 150 MG PO BID, #60 TAB Prov:YEMI HERNÁNDEZ DO 11/25/16 Naproxen* (Naproxen*) 500 Mg Tablet, 500 MG PO BID Y for PAIN, #10 TAB Prov:YEMI HERNÁNDEZ DO 11/25/16 Cephalexin* (Keflex*) 500 Mg Capsule, 500 MG PO Q8, #30 CAP Prov:YEMI HERNÁNDEZ DO 11/25/16 Sulfamethoxazole/Trimethoprim* (Bactrim Ds* Tablet) 1 Each Tablet, 1 TAB PO BID , #20 TAB Prov:YEMI HERNÁNDEZ DO 11/25/16 Polyethylene Glycol* (Miralax*) 17 Gm Powd.pack, 17 GM PO DAILY, #30 PACKET Prov:KATINA MACARIO MD 08/29/16 Sennosides* (Senna Lax*) 8.6 Mg Tablet, 1 TAB PO BID for 30 Days, TAB Prov:KATINA MACARIO MD 08/29/16 Ciprofloxacin Hcl* (Ciprofloxacin Hcl*) 500 Mg Tablet, 500 MG PO BID for 7 Days , TAB Prov:RAHEEM KENDALL MD 08/29/16 Albuterol Sulfate* (Proair HFA*) 8.5 Gm Hfa.aer.ad, 2 PUFF INH Q4, #1 INHALER Prov:PARKER WEI PA-C 06/21/16 Ibuprofen* (Motrin*) 600 Mg Tab, 600 MG PO Q6H Y for PAIN AND OR ELEVATED TEMP, #15 TAB Prov:AEB MOORE MD 06/16/16 Sitagliptin* (Januvia*) 100 Mg Tab, 100 MG PO DAILY for 30 Days Prov:LISSY GONZALEZ 02/04/15 Reported Medications Insulin Glargine* (Lantus*) 100 Unit/Ml Soln, 20 UNIT SC DAILY, #1 VIAL 06/10/16 Tramadol Hcl* (Ultram*) 50 Mg Tablet, 50 MG PO TID Y for PAIN, TAB 03/30/16 Gabapentin* (Gabapentin*) 300 Mg Capsule, 300 MG PO TID, #90 CAP 03/16/16 Amitriptyline Hcl* (Amitriptyline Hcl*) 25 Mg Tablet, 25 MG PO QHS, #30 TAB 03/16/16 Clopidogrel Bisulfate (Clopidogrel) 75 Mg Tablet, 75 MG PO DAILY, #30 TAB 12/22/15 Zolpidem Tartrate* (Zolpidem Tartrate*) 10 Mg Tablet, 10 MG PO QHS Y for INSOMNIA, #30 TAB 12/22/15 Glimepiride* (Amaryl*) 1 Mg Tablet, 1 MG PO WITH BREAKFAST, TAB 03/19/15 Metformin Hcl* (Metformin Hcl*) 1,000 Mg Tablet, 1000 MG PO BID WITH MEALS, TAB 03/19/15 Atorvastatin Calcium* (Atorvastatin Calcium*) 20 Mg Tablet, 20 MG PO HS, TAB 03/19/15 Lisinopril* (Lisinopril*) 20 Mg Tablet, 20 MG PO DAILY, TAB 09/29/14 Atenolol* (Atenolol*) 50 Mg Tablet, 50 MG PO DAILY, TAB 09/29/14 Allergies Allergies: Coded Allergies: No Known Allergy (Unverified , 11/26/16) BECAUSE THE PATIENT ON DIALYSIS HE HAS CATHY ADVERSE REACTION TO BACTRIM,IBUPROFEN BUT HE CAN TAKE ASPIRIN PMhx/Soc History of Surgery: Yes (Cardiac stents) Anesthesia Reaction: No Hx Respiratory Disorders: Yes (resp failure, likely 2/2 smoking, asthma, bronchitis) Hx Cardiac Disorders: Yes (cad, htn) Hx Miscellaneous Medical Probl: Yes (DAXA, GLAUCOMA, MORBID OBESITY) Hx Alcohol Use: Yes Hx Substance Use: Yes Hx Tobacco Use: Yes (2 ppd) FmHx Family History: No diabetes Physical Exam Vitals Vital Signs Date Time Temp Pulse Resp B/P Pulse Ox O2 Delivery O2 Flow Rate FiO2 12/18/16 17:03 98.6 71 19 135/70 100 Room Air 12/18/16 16:30 97.3 85 18 135/79 100 Physical Exam General: Well developed, well nourished, no acute distress Head: Normocephalic, atraumatic. Eyes: Pupils equally reactive, EOM intact ENT: Moist mucous membranes Neck: Supple, no lymphadenopathy Respiratory: Scant wheeze but good aeration, no respiratory distress Cardiovascular: RRR, no murmurs, rubs, or gallops Abdominal: Soft, non-tender, non-distended, no peritoneal signs : Deferred MSK: No edema, no unilateral swelling, 5/5 strength Neurologic: Alert and oriented, moving all extremities, normal speech, no focal weakness, no cerebellar signs Skin: No rash Psych: Normal mood Procedures/MDM The patient is a super utilizer of the emergency department. He exhibits no signs or symptoms of acute organic pathology. He has scant wheezing which is his baseline. He has normal oxygen saturation. The patient is a chronic smoker. The patient is asking to use the restroom and is asking for food. These were provided for him. At this time the patient does not require diagnostic imaging laboratory testing or medical interventions. Multiple attempts to fix this situation have been attempted in the past including social work, psychiatry, Adult Protective Services without success. The patient has keys to his home is ambulatory and at his baseline. He will be discharged from the emergency room. Departure Diagnosis: Primary Impression: Anxiety reaction Condition: Stable Patient Instructions: Anxiety Reaction Referrals: COMMUNITY CLINICS YOU HAVE RECEIVED A MEDICAL SCREENING EXAM AND THE RESULTS INDICATE THAT YOU DO NOT HAVE A CONDITION THAT REQUIRES URGENT TREATMENT IN THE EMERGENCY DEPARTMENT. FURTHER EVALUATION AND TREATMENT OF YOUR CONDITION CAN WAIT UNTIL YOU ARE SEEN IN YOUR DOCTORS OFFICE WITHIN THE NEXT 1-2 DAYS. IT IS YOUR RESPONSIBILITY TO MAKE AN APPOINTMENT FOR FOLOW-UP CARE. IF YOU HAVE A PRIMARY DOCTOR --you should call your primary doctor and schedule an appointment IF YOU DO NOT HAVE A PRIMARY DOCTOR YOU CAN CALL OUR PHYSICIAN REFERRAL HOTLINE AT IF YOU CAN NOT AFFORD TO SEE A PHYSICIAN YOU CAN CHOSE FROM THE FOLLOWING [facility] [address] [facility] [address] [facility] [address] [facility] [address] [facility] [address] [facility]. [facility] [address] [facility]. [facility] YOU HAVE RECEIVED A MEDICAL SCREENING EXAM AND THE RESULTS INDICATE THAT YOU DO NOT HAVE A CONDITION THAT REQUIRES URGENT TREATMENT IN THE EMERGENCY DEPARTMENT. FURTHER EVALUATION AND TREATMENT OF YOUR CONDITION CAN WAIT UNTIL YOU ARE SEEN IN YOUR DOCTORS OFFICE WITHIN THE NEXT 1-2 DAYS. IT IS YOUR RESPONSIBILITY TO MAKE AN APPOINTMENT FOR FOLOW-UP CARE. IF YOU HAVE A PRIMARY DOCTOR --you should call your primary doctor and schedule and appointment IF YOU DO NOT HAVE A PRIMARY DOCTOR YOU CAN CALL OUR PHYSICIAN REFERRAL HOTLINE AT . IF YOU CAN NOT AFFORD TO SEE A PHYSICIAN YOU CAN CHOSE FROM THE FOLLOWING [facility]: [facility] [address] [place] [address] [facility] [address] [place] [address] [facility] [address] [place] [address] Additional Instructions: Call your primary care doctor TOMORROW for an appointment during the next 1 WEEK.Tell the community youth secretary that you were referred from this facility.See the doctor sooner or return here if your condition worsens before your appointment time. ANDREA CARMONA MD Dec 18, 2016 17:27
== END 2016-12-18 18:17 | disposition home or self-care (01) ==
LOC: E/R 16:11
DX: F41.1 Generalized anxiety disorder (principal); J45.909 Unspecified asthma, uncomplicated; I10 Essential (primary) hypertension; I25.10 Atherosclerotic heart disease of native coronary artery without angina pectoris; E66.01 Morbid (severe) obesity due to excess calories; F17.210 Nicotine dependence, cigarettes, uncomplicated; E11.9 Type 2 diabetes mellitus without complications; Z98.61 Coronary angioplasty status; Z68.33 Body mass index [BMI] 33.0-33.9, adult; Z79.84 Long term (current) use of oral hypoglycemic drugs; Z79.4 Long term (current) use of insulin
CPT/HCPCS: 99283

== ENCOUNTER 2018-02-11 15:38 | Inpatient (IN) | END 2018-02-11 23:08 | disposition EXP | DRG 208 ==